=== PATIENT | female | born 1945 | race African-American/Black ===

== ENCOUNTER 2022-11-15 00:20 | Inpatient (IN) | payer OTHER ==
[2022-11-15 01:30] LABS: HEMATOCRIT 25.7 % (32.4-45.2); HEMOGLOBIN 8.2 GM/dL (10.7-15.3); MCH 29.7 pg (25.7-33.7); MEAN CELL VOLUME 92.7 fl (80-96); MEAN PLT VOLUME 7.7 fl (7.5-11.1); PLATELET COUNT 440 10^3/uL (134-434); RBC 2.77 M/mm3 (3.60-5.2); RDW 14.6 % (11.6-15.6); WHITE BLOOD COUNT 20.2 K/mm3 (4.0-10.0)
[2022-11-15 01:32] LABS: VENOUS BASE EXCESS 0.1 mmol/L (-2-2); VENOUS O2 SATURATION 33.6 % (70-80); VENOUS PCO2 57.4 mmHg (38-52); VENOUS PH 7.3 (7.310-7.410)
[2022-11-15] MEDS ORDERED: PIPERACILLIN/TAZOB 4.5 GM 4.5 GM in DEXTROSE 5%-WATER 100 ML IVPB ONE (01:43)
[2022-11-15] MEDS ORDERED: VANCOMYCIN 1 GM in D5W (PRE-DOCKED) 1,000 MG/250 ML (RESTRICTED TO ID ONLY IVPB ONE (01:43)
[2022-11-15 01:52] LABS: CALCIUM 10.1 mg/dL (8.5-10.1)
[2022-11-15 01:53] LABS: ALBUMIN 2.1 g/dl (3.4-5.0); BLOOD UREA NITROGEN 26.5 mg/dL (7-18); MAGNESIUM 2.1 mg/dL (1.8-2.4)
[2022-11-15 01:55] LABS: INR 1.13 (0.83-1.09); PROTHROMBIN TIME (PATIENT) 13.1 SEC (9.7-13.0)
[2022-11-15 01:56] LABS: CREATININE 1.5 mg/dL (0.55-1.3); PHOSPHOROUS 1.8 mg/dL (2.5-4.9)
[2022-11-15 01:57] LABS: ACTIVATED PTT 32.3 SECONDS (25.2-36.5); TOT PROT 8.2 g/dl (6.4-8.2)
[2022-11-15 01:58] LABS: BILIRUBIN,TOTAL 0.3 mg/dL (0.2-1)
[2022-11-15] MEDS ORDERED: POTASSIUM CHLORIDE ORAL LIQUID 20 MEQ/15 ML GT ONE (02:00)
[2022-11-15] MEDS ORDERED: PIPERACILLIN/TAZOB 4.5 GM 4.5 GM/100 ML BAG IVPB ONE (02:04)
[2022-11-15] MEDS ORDERED: POTASSIUM CHLORIDE ORAL LIQUID 20 MEQ/15 ML ONE (02:30)
[2022-11-15 03:52] LABS: POTASSIUM 5.4 mmol/L (3.5-5.1)
[2022-11-15 03:54] LABS: ALBUMIN 2.1 g/dl (3.4-5.0); BLOOD UREA NITROGEN 29.9 mg/dL (7-18); CALCIUM 9.5 mg/dL (8.5-10.1)
[2022-11-15 03:57] LABS: CREATININE 1.6 mg/dL (0.55-1.3)
[2022-11-15 03:59] LABS: BILIRUBIN,TOTAL 0.4 mg/dL (0.2-1)
[2022-11-15] MEDS ORDERED: NAPH,MB-DB/K PH,MBDB POWDER PACKET GT ONE (04:03)
[2022-11-15] MEDS ORDERED: NAPH,MB-DB/K PH,MBDB POWDER PACKET ONE (05:12)
[2022-11-15] MEDS ORDERED: HEPARIN INFUSION - 25,000 UNITS/500 ML INFUS.BAG IVPB ONE (05:12)
[2022-11-15] MEDS: HEPARIN - 25,000 UNIT in SODIUM CHLORIDE 495 ML IV SCH (05:29)
[2022-11-15] MEDS ORDERED: HEPARIN NA (PORCINE) 5,000 UNITS/ML 1ML VIAL SQ SCH (06:00)
[2022-11-15 08:33] LABS: HEMATOCRIT 23.3 % (32.4-45.2); HEMOGLOBIN 7.5 GM/dL (10.7-15.3); MCH 30.2 pg (25.7-33.7); MCHC 32.2 g/dl (32.0-36.0); MEAN CELL VOLUME 93.8 fl (80-96); PLATELET COUNT 422 10^3/uL (134-434); RBC 2.49 M/mm3 (3.60-5.2); RDW 14.3 % (11.6-15.6); WHITE BLOOD COUNT 16.8 K/mm3 (4.0-10.0)
[2022-11-15 08:53] LABS: POTASSIUM 3.6 mmol/L (3.5-5.1)
[2022-11-15 08:55] LABS: ALBUMIN 2.1 g/dl (3.4-5.0); CALCIUM 10.2 mg/dL (8.5-10.1)
[2022-11-15 08:56] LABS: MAGNESIUM 2.2 mg/dL (1.8-2.4)
[2022-11-15 08:59] LABS: CREATININE 1.6 mg/dL (0.55-1.3); PHOSPHOROUS 2.1 mg/dL (2.5-4.9)
[2022-11-15 09:01] LABS: BILIRUBIN,TOTAL 0.3 mg/dL (0.2-1); TOT PROT 7.8 g/dl (6.4-8.2)
[2022-11-15] MEDS ORDERED: ENOXAPARIN NA (PORCINE) 30 MG/0.3 ML DISP.SYRIN SQ SCH (10:00)
[2022-11-15] MEDS ORDERED: PIPERACILLIN/TAZOB 2.25 GM 2.25 GM in DEXTROSE 5%-WATER - 50 ML IVPB SCH (10:00)
[2022-11-15] MEDS: levETIRAcetam 500 MG/5 ML ORAL SOLUTION (UNIT-DOSE CUPS) PO SCH ×2 (10:35→21:42)
[2022-11-15] MEDS: PATIENT'S OWN MEDICATION (NON-FORMULARY) (Vit A/Vitamin D3/E/Aloe V/Zinc [Periguard Ointme TP SCH (10:35)
[2022-11-15] MEDS: FAMOTIDINE 20 MG/2.5 ML ORAL LIQUID GT SCH ×2 (10:35→22:48)
[2022-11-15] MEDS: NYSTATIN POWDER 100,000 UNITS/GM - 15 GM TOPICAL POWDER TP SCH ×2 (10:35→21:43)
[2022-11-15] MEDS: VITAMIN B COMP W-C 1 EA TABLET (NEPHRO-VITE) GT SCH (10:35)
[2022-11-15] MEDS ORDERED: PIPERACILLIN/TAZOB 2.25 GM 2.25 GM/50 ML BAG IVPB ONE (10:36)
[2022-11-15 12:05] LABS: ANISOCYTOSIS 2+; MACROCYTOSIS 0; OVALOCYTE 2+; TARGET CELLS 1+; TEAR DROP CELLS 2+
[2022-11-15] MEDS ORDERED: ATORVASTATIN CA 40 MG TABLET (FP) PO ONE (13:41)
[2022-11-15] MEDS ORDERED: ATORVASTATIN CA 40 MG TABLET (FP) GT ONE (13:41)
[2022-11-15] MEDS: ALBUTEROL SO4 2.5/IPRATROPIUM 0.5 INH SOL 3 ML VIAL.NEB. NEB SCH ×2 (15:22→21:50)
[2022-11-15 16:23] LABS: ARTERIAL BLD GAS O2 SATURATION 98.8 % (95-98); ARTERIAL BLOOD GAS BASE EXCESS 4.1 mmol/L (-2-2); ARTERIAL BLOOD GAS PO2 125.7 mmHg (80-100)
[2022-11-15 16:26] LABS: ALLENS TEST POSITIVE
[2022-11-15 16:27] LABS: VENT MODE A/C; VENT RATE 16
[2022-11-15] MEDS ORDERED: SODIUM PHOSPHATE - 20 MM in SODIUM CHLORIDE 250 ML IVPB ONE (17:27)
[2022-11-15] MEDS: PIPERACILLIN/TAZOB 2.25 GM 2.25 GM in DEXTROSE 5%-WATER - 50 ML IVPB SCH (17:35)
[2022-11-15] MEDS: ATORVASTATIN CA 80 MG TABLET (FP) GT SCH (17:56)
[2022-11-15] MEDS: QUEtiapine FUMARATE 25 MG TABLET GT SCH (21:40)
[2022-11-15] MEDS ORDERED: ATORVASTATIN CA 40 MG TABLET (FP) GT SCH ×2 (22:00)
[2022-11-16] MEDS: PIPERACILLIN/TAZOB 2.25 GM 2.25 GM in DEXTROSE 5%-WATER - 50 ML IVPB SCH ×3 (01:56→17:39)
[2022-11-16] MEDS ORDERED: VANCOMYCIN 1 GM/200 ML PREMIX BAG (RESTRICTED TO ID ONLY) IVPB SCH (03:00)
[2022-11-16 07:29] LABS: BASO % 0.5 % (0-2.0); EOS % 1.3 % (0-4.5); HEMATOCRIT 21.6 % (32.4-45.2); HEMOGLOBIN 7.3 GM/dL (10.7-15.3); LYMPH % 6.5 % (8-40); MCH 31.4 pg (25.7-33.7); MCHC 33.6 g/dl (32.0-36.0); MEAN CELL VOLUME 93.4 fl (80-96); MEAN PLT VOLUME 7.6 fl (7.5-11.1); MONO % 8.7 % (3.8-10.2); PLATELET COUNT 373 10^3/uL (134-434); RBC 2.32 M/mm3 (3.60-5.2); RDW 14.1 % (11.6-15.6); WHITE BLOOD COUNT 17.1 K/mm3 (4.0-10.0)
[2022-11-16 07:50] LABS: CHLORIDE 99 mmol/L (98-107); SODIUM 139 mmol/L (136-145)
[2022-11-16 07:52] LABS: CALCIUM 9.9 mg/dL (8.5-10.1)
[2022-11-16 07:53] LABS: ALBUMIN 2.1 g/dl (3.4-5.0); BLOOD UREA NITROGEN 49.8 mg/dL (7-18); CO2 27 mmol/L (21-32); GLUCOSE,RANDOM 113 mg/dL (74-106); MAGNESIUM 2.1 mg/dL (1.8-2.4)
[2022-11-16 07:56] LABS: CREATININE 2.6 mg/dL (0.55-1.3); PHOSPHOROUS 2.7 mg/dL (2.5-4.9); SGOT/AST 38 U/L (15-37); SGPT/ALT 30 U/L (13-61)
[2022-11-16 07:58] LABS: ALK PHOS 144 U/L (45-117); BILIRUBIN,TOTAL 0.3 mg/dL (0.2-1); TOT PROT 7.4 g/dl (6.4-8.2)
[2022-11-16 08:19] LABS: ANION GAP 13 MMOL/L (8-16); POTASSIUM 2.9 mmol/L (3.5-5.1)
[2022-11-16] MEDS: HEPARIN - 25,000 UNIT in SODIUM CHLORIDE 495 ML IV SCH (08:20)
[2022-11-16] MEDS: ALBUTEROL SO4 2.5/IPRATROPIUM 0.5 INH SOL 3 ML VIAL.NEB. NEB SCH ×4 (08:39→20:23)
[2022-11-16] MEDS ORDERED: EPOETIN ALFA-EPBX 10,000 UNIT/ML VIAL SQ ONE (09:06)
[2022-11-16] MEDS ORDERED: SODIUM CHLORIDE 250 ML IV PRN (09:06)
[2022-11-16] MEDS ORDERED: ALBUMIN HUMAN 25% 12.5 GM/50 ML VIAL IV SCH (09:15)
[2022-11-16] MEDS: VITAMIN B COMP W-C 1 EA TABLET (NEPHRO-VITE) GT SCH (09:18)
[2022-11-16] MEDS: levETIRAcetam 500 MG/5 ML ORAL SOLUTION (UNIT-DOSE CUPS) PO SCH ×2 (09:18→21:56)
[2022-11-16] MEDS: KCL 10 MEQ IVPB 10 MEQ/100 ML INFUS.BAG IVPB SCH ×3 (09:18→11:46)
[2022-11-16] MEDS: NYSTATIN POWDER 100,000 UNITS/GM - 15 GM TOPICAL POWDER TP SCH ×2 (09:19→21:57)
[2022-11-16] MEDS ORDERED: ATORVASTATIN CA 40 MG TABLET (FP) GT SCH (10:00)
[2022-11-16] MEDS ORDERED: POTASSIUM CHLORIDE ORAL LIQUID 20 MEQ/15 ML GT ONE (10:00)
[2022-11-16] MEDS: FAMOTIDINE 20 MG/2.5 ML ORAL LIQUID GT SCH ×2 (10:00→21:56)
[2022-11-16] MEDS ORDERED: VANCOMYCIN 1 GM/200 ML PREMIX BAG (RESTRICTED TO ID ONLY) IVPB ONE (10:02)
[2022-11-16 10:45] LABS: RETICULOCYTES 1.49 % (0.5-1.5)
[2022-11-16 11:16] LABS: IRON SERUM 64 ug/dL (50-175); TOTAL IRON BINDING CAPACITY 107 ug/dL (250-450)
[2022-11-16] MEDS: ASPIRIN 81 MG CHEWABLE TABLETS PO SCH (11:45)
[2022-11-16] MEDS ORDERED: VITAMINS A AND D TOPICAL OINTMENT 60 GM TUBE TP PRN (12:15)
[2022-11-16] MEDS ORDERED: ZINC OXIDE 20% TOPICAL OINTMENT 30 GM TUBE TP PRN (12:16)
[2022-11-16] MEDS: PATIENT'S OWN MEDICATION (NON-FORMULARY) (Vit A/Vitamin D3/E/Aloe V/Zinc [Periguard Ointme TP SCH (20:23)
[2022-11-16] MEDS: QUEtiapine FUMARATE 25 MG TABLET GT SCH (21:56)
[2022-11-16] MEDS: ATORVASTATIN CA 80 MG TABLET (FP) GT SCH (21:56)
[2022-11-16] MEDS: guaiFENesin 200 MG/10 ML 10 ML UNIT-DOSE CUPS GT PRN (21:56)
[2022-11-16] MEDS ORDERED: HEPARIN NA (PORCINE) 5,000 UNITS/ML 1ML VIAL SQ SCH (22:00)
[2022-11-17 00:10] LABS: POTASSIUM 3.4 mmol/L (3.5-5.1)
[2022-11-17 00:11] LABS: BLOOD UREA NITROGEN 59.7 mg/dL (7-18); CALCIUM 9.8 mg/dL (8.5-10.1)
[2022-11-17 00:14] LABS: CREATININE 3.1 mg/dL (0.55-1.3)
[2022-11-17] MEDS: PIPERACILLIN/TAZOB 2.25 GM 2.25 GM in DEXTROSE 5%-WATER - 50 ML IVPB SCH ×3 (01:33→17:18)
[2022-11-17] MEDS ORDERED: VANCOMYCIN 1 GM/200 ML PREMIX BAG (RESTRICTED TO ID ONLY) IVPB SCH (03:00)
[2022-11-17] MEDS: HEPARIN - 25,000 UNIT in SODIUM CHLORIDE 495 ML IV SCH (07:15)
[2022-11-17] MEDS: ALBUTEROL SO4 2.5/IPRATROPIUM 0.5 INH SOL 3 ML VIAL.NEB. NEB SCH ×4 (08:00→20:40)
[2022-11-17] MEDS: ALBUMIN HUMAN 25% 12.5 GM/50 ML VIAL IV SCH ×4 (08:15→11:00)
[2022-11-17] MEDS ORDERED: EPOETIN ALFA-EPBX 10,000 UNIT/ML VIAL SQ ONE (08:15)
[2022-11-17 08:53] LABS: HEMATOCRIT 20.1 % (32.4-45.2); MCH 30.2 pg (25.7-33.7); MCHC 33.2 g/dl (32.0-36.0); MEAN CELL VOLUME 91.1 fl (80-96); MEAN PLT VOLUME 7.6 fl (7.5-11.1); PLATELET COUNT 356 10^3/uL (134-434); RBC 2.21 M/mm3 (3.60-5.2); RDW 14.2 % (11.6-15.6)
[2022-11-17 09:01] LABS: POTASSIUM 3.4 mmol/L (3.5-5.1)
[2022-11-17 09:03] LABS: BLOOD UREA NITROGEN 65.3 mg/dL (7-18); CALCIUM 9.6 mg/dL (8.5-10.1); MAGNESIUM 2.2 mg/dL (1.8-2.4)
[2022-11-17 09:04] LABS: HEMOGLOBIN 6.7 GM/dL (10.7-15.3)
[2022-11-17 09:07] LABS: CREATININE 3.3 mg/dL (0.55-1.3)
[2022-11-17] MEDS ORDERED: POTASSIUM CHLORIDE ORAL LIQUID 20 MEQ/15 ML GT ONE (09:45)
[2022-11-17] MEDS: ASPIRIN 81 MG CHEWABLE TABLETS PO SCH (10:50)
[2022-11-17] MEDS: VITAMIN B COMP W-C 1 EA TABLET (NEPHRO-VITE) GT SCH (10:50)
[2022-11-17] MEDS: levETIRAcetam 500 MG/5 ML ORAL SOLUTION (UNIT-DOSE CUPS) PO SCH ×2 (10:50→21:20)
[2022-11-17] MEDS: NYSTATIN POWDER 100,000 UNITS/GM - 15 GM TOPICAL POWDER TP SCH ×2 (10:51→21:20)
[2022-11-17] MEDS: FAMOTIDINE 20 MG/2.5 ML ORAL LIQUID GT SCH ×2 (10:55→21:20)
[2022-11-17] MEDS ORDERED: VANCOMYCIN 1 GM/200 ML PREMIX BAG (RESTRICTED TO ID ONLY) IVPB ONE (13:00)
[2022-11-17] MEDS: QUEtiapine FUMARATE 25 MG TABLET GT SCH (21:20)
[2022-11-17] MEDS: ATORVASTATIN CA 80 MG TABLET (FP) GT SCH (21:20)
[2022-11-17] MEDS: guaiFENesin 200 MG/10 ML 10 ML UNIT-DOSE CUPS GT PRN (21:20)
[2022-11-18] MEDS: PIPERACILLIN/TAZOB 2.25 GM 2.25 GM in DEXTROSE 5%-WATER - 50 ML IVPB SCH ×3 (01:30→18:16)
[2022-11-18] MEDS: VANCOMYCIN 250 MG/5 ML ORAL SOLUTION PO SCH ×4 (06:55→23:29)
[2022-11-18] MEDS: ALBUTEROL SO4 2.5/IPRATROPIUM 0.5 INH SOL 3 ML VIAL.NEB. NEB SCH ×4 (08:11→20:31)
[2022-11-18] MEDS: ASPIRIN 81 MG CHEWABLE TABLETS PO SCH (09:03)
[2022-11-18] MEDS: levETIRAcetam 500 MG/5 ML ORAL SOLUTION (UNIT-DOSE CUPS) PO SCH ×2 (09:03→21:53)
[2022-11-18] MEDS: FAMOTIDINE 20 MG/2.5 ML ORAL LIQUID GT SCH ×2 (09:03→22:41)
[2022-11-18] MEDS: VITAMIN B COMP W-C 1 EA TABLET (NEPHRO-VITE) GT SCH (09:03)
[2022-11-18] MEDS: NYSTATIN POWDER 100,000 UNITS/GM - 15 GM TOPICAL POWDER TP SCH ×2 (09:04→21:53)
[2022-11-18 10:18] LABS: HEMATOCRIT 24.7 % (32.4-45.2); HEMOGLOBIN 8.3 GM/dL (10.7-15.3); MCH 30.1 pg (25.7-33.7); MCHC 33.5 g/dl (32.0-36.0); MEAN CELL VOLUME 90.1 fl (80-96); MEAN PLT VOLUME 7.6 fl (7.5-11.1); PLATELET COUNT 355 10^3/uL (134-434); RBC 2.75 M/mm3 (3.60-5.2); WHITE BLOOD COUNT 12.5 K/mm3 (4.0-10.0)
[2022-11-18 10:29] LABS: CALCIUM 10.1 mg/dL (8.5-10.1); MAGNESIUM 2.1 mg/dL (1.8-2.4)
[2022-11-18 10:34] LABS: CREATININE 2.2 mg/dL (0.55-1.3); PHOSPHOROUS 2.3 mg/dL (2.5-4.9)
[2022-11-18 10:36] LABS: BLOOD UREA NITROGEN 36.9 mg/dL (7-18)
[2022-11-18] MEDS ORDERED: ZINC OXIDE 20% TOPICAL OINTMENT 30 GM TUBE TP PRN (16:16)
[2022-11-18] MEDS ORDERED: VITAMINS A AND D TOPICAL OINTMENT 60 GM TUBE TP PRN (16:16)
[2022-11-18] MEDS ORDERED: guaiFENesin 200 MG/10 ML 10 ML UNIT-DOSE CUPS GT PRN (16:16)
[2022-11-18] MEDS: QUEtiapine FUMARATE 25 MG TABLET GT SCH (21:53)
[2022-11-18] MEDS: ATORVASTATIN CA 80 MG TABLET (FP) GT SCH (21:53)
[2022-11-19] MEDS: PIPERACILLIN/TAZOB 2.25 GM 2.25 GM in DEXTROSE 5%-WATER - 50 ML IVPB SCH ×4 (02:01→20:43)
[2022-11-19] MEDS: VANCOMYCIN 250 MG/5 ML ORAL SOLUTION PO SCH ×3 (06:46→17:38)
[2022-11-19] MEDS: ALBUTEROL SO4 2.5/IPRATROPIUM 0.5 INH SOL 3 ML VIAL.NEB. NEB SCH ×4 (07:50→19:33)
[2022-11-19 08:55] LABS: BASO % 0.3 % (0-2.0); HEMATOCRIT 25.9 % (32.4-45.2); HEMOGLOBIN 8.3 GM/dL (10.7-15.3); LYMPH % 10.4 % (8-40); MCH 29.5 pg (25.7-33.7); MCHC 32.2 g/dl (32.0-36.0); MEAN CELL VOLUME 91.8 fl (80-96); MONO % 11.6 % (3.8-10.2); NEUT % 75.7 % (42.8-82.8); PLATELET COUNT 345 10^3/uL (134-434); RBC 2.82 M/mm3 (3.60-5.2); RDW 14.5 % (11.6-15.6); WHITE BLOOD COUNT 12.7 K/mm3 (4.0-10.0)
[2022-11-19 09:21] LABS: POTASSIUM 5.3 mmol/L (3.5-5.1)
[2022-11-19 09:23] LABS: CALCIUM 10.4 mg/dL (8.5-10.1)
[2022-11-19 09:24] LABS: ALBUMIN 2.2 g/dl (3.4-5.0); BLOOD UREA NITROGEN 52.6 mg/dL (7-18); MAGNESIUM 2.2 mg/dL (1.8-2.4)
[2022-11-19 09:27] LABS: PHOSPHOROUS 2.9 mg/dL (2.5-4.9)
[2022-11-19 09:28] LABS: BILIRUBIN,TOTAL 0.5 mg/dL (0.2-1); TOT PROT 7.5 g/dl (6.4-8.2)
[2022-11-19] MEDS: levETIRAcetam 500 MG/5 ML ORAL SOLUTION (UNIT-DOSE CUPS) PO SCH ×2 (10:09→22:44)
[2022-11-19] MEDS: FAMOTIDINE 20 MG/2.5 ML ORAL LIQUID GT SCH ×2 (10:10→22:45)
[2022-11-19] MEDS: VITAMIN B COMP W-C 1 EA TABLET (NEPHRO-VITE) GT SCH (10:10)
[2022-11-19] MEDS: ASPIRIN 81 MG CHEWABLE TABLETS PO SCH (10:10)
[2022-11-19] MEDS: NYSTATIN POWDER 100,000 UNITS/GM - 15 GM TOPICAL POWDER TP SCH ×2 (10:12→23:30)
[2022-11-19] MEDS: QUEtiapine FUMARATE 25 MG TABLET GT SCH (22:43)
[2022-11-19] MEDS: ATORVASTATIN CA 80 MG TABLET (FP) GT SCH (22:43)
[2022-11-20] MEDS: VANCOMYCIN 250 MG/5 ML ORAL SOLUTION PO SCH ×5 (00:37→23:47)
[2022-11-20] MEDS: PIPERACILLIN/TAZOB 2.25 GM 2.25 GM in DEXTROSE 5%-WATER - 50 ML IVPB SCH ×3 (02:45→17:28)
[2022-11-20] MEDS: ALBUTEROL SO4 2.5/IPRATROPIUM 0.5 INH SOL 3 ML VIAL.NEB. NEB SCH ×4 (07:45→20:15)
[2022-11-20] MEDS ORDERED: EPOETIN ALFA-EPBX 10,000 UNIT/ML VIAL IVPUSH ONE (08:00)
[2022-11-20] MEDS ORDERED: SODIUM CHLORIDE 250 ML IV PRN (08:00)
[2022-11-20 08:54] LABS: HEMATOCRIT 23.2 % (32.4-45.2); HEMOGLOBIN 7.8 GM/dL (10.7-15.3); MCH 30.2 pg (25.7-33.7); MCHC 33.6 g/dl (32.0-36.0); MEAN CELL VOLUME 89.7 fl (80-96); MEAN PLT VOLUME 7.3 fl (7.5-11.1); PLATELET COUNT 344 10^3/uL (134-434); RBC 2.58 M/mm3 (3.60-5.2); RDW 14.6 % (11.6-15.6); WHITE BLOOD COUNT 13.4 K/mm3 (4.0-10.0)
[2022-11-20 09:23] LABS: CALCIUM 9.8 mg/dL (8.5-10.1); POTASSIUM 4.3 mmol/L (3.5-5.1)
[2022-11-20 09:24] LABS: BLOOD UREA NITROGEN 69.1 mg/dL (7-18)
[2022-11-20 09:27] LABS: CREATININE 3.8 mg/dL (0.55-1.3)
[2022-11-20] MEDS: ASPIRIN 81 MG CHEWABLE TABLETS PO SCH (12:53)
[2022-11-20] MEDS: levETIRAcetam 500 MG/5 ML ORAL SOLUTION (UNIT-DOSE CUPS) PO SCH ×2 (12:53→21:41)
[2022-11-20] MEDS: VITAMIN B COMP W-C 1 EA TABLET (NEPHRO-VITE) GT SCH (12:53)
[2022-11-20] MEDS: FAMOTIDINE 20 MG/2.5 ML ORAL LIQUID GT SCH ×2 (12:54→21:41)
[2022-11-20] MEDS: NYSTATIN POWDER 100,000 UNITS/GM - 15 GM TOPICAL POWDER TP SCH ×2 (14:16→21:42)
[2022-11-20] MEDS: ATORVASTATIN CA 80 MG TABLET (FP) GT SCH (21:41)
[2022-11-20] MEDS: QUEtiapine FUMARATE 25 MG TABLET GT SCH (21:41)
[2022-11-21] MEDS: PIPERACILLIN/TAZOB 2.25 GM 2.25 GM in DEXTROSE 5%-WATER - 50 ML IVPB SCH ×3 (02:23→18:38)
[2022-11-21] MEDS: VANCOMYCIN 250 MG/5 ML ORAL SOLUTION PO SCH ×3 (05:55→18:38)
[2022-11-21] MEDS: ALBUTEROL SO4 2.5/IPRATROPIUM 0.5 INH SOL 3 ML VIAL.NEB. NEB SCH ×4 (07:20→19:22)
[2022-11-21] MEDS ORDERED: LORazepam 2 MG/ML SDV VIAL IVPUSH PRN (09:53)
[2022-11-21] MEDS: ASPIRIN 81 MG CHEWABLE TABLETS PO SCH (10:50)
[2022-11-21] MEDS: FAMOTIDINE 20 MG/2.5 ML ORAL LIQUID GT SCH ×2 (10:50→22:23)
[2022-11-21] MEDS: VITAMIN B COMP W-C 1 EA TABLET (NEPHRO-VITE) GT SCH (10:51)
[2022-11-21] MEDS: levETIRAcetam 500 MG/5 ML ORAL SOLUTION (UNIT-DOSE CUPS) PO SCH ×2 (10:51→22:26)
[2022-11-21] MEDS: NYSTATIN POWDER 100,000 UNITS/GM - 15 GM TOPICAL POWDER TP SCH ×2 (11:43→22:23)
[2022-11-21] MEDS ORDERED: SODIUM CHLORIDE 250 ML IV PRN (14:56)
[2022-11-21 14:57] VITALS: BMI 28.5
[2022-11-21] MEDS ORDERED: EPOETIN ALFA-EPBX 10,000 UNIT/ML VIAL SQ ONE (16:45)
[2022-11-21] MEDS: ATORVASTATIN CA 80 MG TABLET (FP) GT SCH (22:23)
[2022-11-21] MEDS: QUEtiapine FUMARATE 25 MG TABLET GT SCH (22:23)
[2022-11-22] MEDS: VANCOMYCIN 250 MG/5 ML ORAL SOLUTION PO SCH ×4 (00:15→18:27)
[2022-11-22] MEDS: PIPERACILLIN/TAZOB 2.25 GM 2.25 GM in DEXTROSE 5%-WATER - 50 ML IVPB SCH ×2 (01:22→18:25)
[2022-11-22] MEDS: ALBUTEROL SO4 2.5/IPRATROPIUM 0.5 INH SOL 3 ML VIAL.NEB. NEB SCH ×4 (07:27→20:33)
[2022-11-22 10:13] LABS: BASO % 0.4 % (0-2.0); EOS % 3.5 % (0-4.5); HEMOGLOBIN 9.1 GM/dL (10.7-15.3); LYMPH % 12.8 % (8-40); MCH 31.2 pg (25.7-33.7); MCHC 33.6 g/dl (32.0-36.0); MEAN CELL VOLUME 92.8 fl (80-96); MEAN PLT VOLUME 7.8 fl (7.5-11.1); MONO % 13.2 % (3.8-10.2); NEUT % 70.1 % (42.8-82.8); PLATELET COUNT 406 10^3/uL (134-434); RBC 2.91 M/mm3 (3.60-5.2); RDW 14.4 % (11.6-15.6); WHITE BLOOD COUNT 10.3 K/mm3 (4.0-10.0)
[2022-11-22 10:39] LABS: POTASSIUM 3.8 mmol/L (3.5-5.1)
[2022-11-22 10:46] LABS: CALCIUM 9.9 mg/dL (8.5-10.1)
[2022-11-22 10:47] LABS: ALBUMIN 2.2 g/dl (3.4-5.0); BLOOD UREA NITROGEN 50.4 mg/dL (7-18)
[2022-11-22 10:50] LABS: CREATININE 3.1 mg/dL (0.55-1.3)
[2022-11-22 10:51] LABS: TOT PROT 7.3 g/dl (6.4-8.2)
[2022-11-22 10:52] LABS: BILIRUBIN,TOTAL 0.4 mg/dL (0.2-1)
[2022-11-22] MEDS: levETIRAcetam 500 MG/5 ML ORAL SOLUTION (UNIT-DOSE CUPS) PO SCH ×2 (11:01→21:51)
[2022-11-22] MEDS: LACTOBACILLUS ACIDOPHILUS 1 TABLET PO SCH (11:01)
[2022-11-22] MEDS: VITAMIN B COMP W-C 1 EA TABLET (NEPHRO-VITE) GT SCH (11:01)
[2022-11-22] MEDS: FAMOTIDINE 20 MG/2.5 ML ORAL LIQUID GT SCH ×2 (11:02→21:51)
[2022-11-22] MEDS: NYSTATIN POWDER 100,000 UNITS/GM - 15 GM TOPICAL POWDER TP SCH ×2 (11:08→21:52)
[2022-11-22] MEDS: QUEtiapine FUMARATE 25 MG TABLET GT SCH ×2 (13:40→21:51)
[2022-11-22] MEDS: LORazepam 1 MG TABLET GT PRN (13:45)
[2022-11-22] MEDS: ASPIRIN 81 MG CHEWABLE TABLETS PO SCH (18:27)
[2022-11-22] MEDS: ATORVASTATIN CA 80 MG TABLET (FP) GT SCH (21:51)
[2022-11-23] MEDS: VANCOMYCIN 250 MG/5 ML ORAL SOLUTION PO SCH (01:19)
[2022-11-23] MEDS: VANCOMYCIN ORAL SOLUTION 125 MG/2.5 ML PO SCH ×4 (05:31→23:23)
[2022-11-23] MEDS: ALBUTEROL SO4 2.5/IPRATROPIUM 0.5 INH SOL 3 ML VIAL.NEB. NEB SCH ×4 (07:10→19:58)
[2022-11-23] MEDS: LORazepam 1 MG TABLET GT PRN ×3 (07:33→23:23)
[2022-11-23] MEDS: LACTOBACILLUS ACIDOPHILUS 1 TABLET PO SCH (09:58)
[2022-11-23] MEDS: VITAMIN B COMP W-C 1 EA TABLET (NEPHRO-VITE) GT SCH (09:58)
[2022-11-23] MEDS: ASPIRIN 81 MG CHEWABLE TABLETS PO SCH (09:58)
[2022-11-23] MEDS: levETIRAcetam 500 MG/5 ML ORAL SOLUTION (UNIT-DOSE CUPS) PO SCH ×2 (09:59→21:32)
[2022-11-23] MEDS: NYSTATIN POWDER 100,000 UNITS/GM - 15 GM TOPICAL POWDER TP SCH ×2 (13:01→21:32)
[2022-11-23] MEDS: FAMOTIDINE 20 MG/2.5 ML ORAL LIQUID GT SCH ×2 (13:01→21:32)
[2022-11-23 15:44] LABS: BASO % 0.7 % (0-2.0); EOS % 2.8 % (0-4.5); HEMATOCRIT 26.5 % (32.4-45.2); HEMOGLOBIN 8.9 GM/dL (10.7-15.3); LYMPH % 11.9 % (8-40); MCHC 33.6 g/dl (32.0-36.0); MEAN CELL VOLUME 92.3 fl (80-96); MEAN PLT VOLUME 7.2 fl (7.5-11.1); MONO % 12.8 % (3.8-10.2); NEUT % 71.8 % (42.8-82.8); PLATELET COUNT 430 10^3/uL (134-434); RBC 2.87 M/mm3 (3.60-5.2); RDW 14.7 % (11.6-15.6); WHITE BLOOD COUNT 10.7 K/mm3 (4.0-10.0)
[2022-11-23 15:58] LABS: POTASSIUM 4.1 mmol/L (3.5-5.1)
[2022-11-23 16:02] LABS: CALCIUM 10.1 mg/dL (8.5-10.1)
[2022-11-23 16:03] LABS: ALBUMIN 2.3 g/dl (3.4-5.0); BLOOD UREA NITROGEN 29.2 mg/dL (7-18)
[2022-11-23 16:06] LABS: CREATININE 2.3 mg/dL (0.55-1.3)
[2022-11-23 16:07] LABS: BILIRUBIN,TOTAL 0.3 mg/dL (0.2-1); TOT PROT 7.7 g/dl (6.4-8.2)
[2022-11-23] MEDS: ATORVASTATIN CA 80 MG TABLET (FP) GT SCH (21:32)
[2022-11-23] MEDS: OLANZapine 5 MG TABLET GT SCH (21:32)
[2022-11-24] MEDS ORDERED: ACETAMINOPHEN 1000 MG/100 ML BAG IVPB PRN (00:35)
[2022-11-24] MEDS: ACETAMINOPHEN 500 MG TABLET (FP) GT PRN ×2 (00:59→10:33)
[2022-11-24] MEDS: VANCOMYCIN ORAL SOLUTION 125 MG/2.5 ML PO SCH (06:00)
[2022-11-24] MEDS ORDERED: SODIUM CHLORIDE 250 ML IV PRN (08:00)
[2022-11-24] MEDS ORDERED: EPOETIN ALFA-EPBX 4,000 UNIT/ML VIAL IVPUSH ONE (08:00)
[2022-11-24] MEDS: ALBUTEROL SO4 2.5/IPRATROPIUM 0.5 INH SOL 3 ML VIAL.NEB. NEB SCH ×4 (08:05→20:41)
[2022-11-24 09:13] LABS: BASO % 0.7 % (0-2.0); EOS % 3.8 % (0-4.5); HEMATOCRIT 25.2 % (32.4-45.2); HEMOGLOBIN 8.4 GM/dL (10.7-15.3); LYMPH % 17.5 % (8-40); MCH 30.4 pg (25.7-33.7); MCHC 33.2 g/dl (32.0-36.0); MEAN CELL VOLUME 91.4 fl (80-96); MONO % 12.9 % (3.8-10.2); NEUT % 65.1 % (42.8-82.8); PLATELET COUNT 395 10^3/uL (134-434); RBC 2.76 M/mm3 (3.60-5.2); RDW 15.2 % (11.6-15.6); WHITE BLOOD COUNT 8.9 K/mm3 (4.0-10.0)
[2022-11-24 09:33] LABS: POTASSIUM 3.6 mmol/L (3.5-5.1)
[2022-11-24 09:37] LABS: CALCIUM 9.7 mg/dL (8.5-10.1)
[2022-11-24 09:38] LABS: BLOOD UREA NITROGEN 39.2 mg/dL (7-18)
[2022-11-24 09:41] LABS: CREATININE 2.9 mg/dL (0.55-1.3)
[2022-11-24] MEDS: VANCOMYCIN ORAL SOLUTION 125 MG/2.5 ML GT SCH ×2 (12:16→17:36)
[2022-11-24] MEDS: LACTOBACILLUS ACIDOPHILUS 1 TABLET PO SCH (12:17)
[2022-11-24] MEDS: FAMOTIDINE 20 MG/2.5 ML ORAL LIQUID GT SCH ×2 (12:18→21:29)
[2022-11-24] MEDS: VITAMIN B COMP W-C 1 EA TABLET (NEPHRO-VITE) GT SCH (12:18)
[2022-11-24] MEDS: NYSTATIN POWDER 100,000 UNITS/GM - 15 GM TOPICAL POWDER TP SCH ×2 (12:19→21:30)
[2022-11-24] MEDS: ASPIRIN 81 MG CHEWABLE TABLETS PO SCH (12:20)
[2022-11-24] MEDS: levETIRAcetam 500 MG/5 ML ORAL SOLUTION (UNIT-DOSE CUPS) PO SCH (15:01)
[2022-11-24] MEDS: ATORVASTATIN CA 80 MG TABLET (FP) GT SCH (21:29)
[2022-11-24] MEDS: levETIRAcetam 500 MG/5 ML ORAL SOLUTION (UNIT-DOSE CUPS) GT SCH (21:29)
[2022-11-24] MEDS: OLANZapine 5 MG TABLET GT SCH (21:29)
[2022-11-25] MEDS: VANCOMYCIN ORAL SOLUTION 125 MG/2.5 ML GT SCH ×4 (00:30→17:46)
[2022-11-25] MEDS: ALBUTEROL SO4 2.5/IPRATROPIUM 0.5 INH SOL 3 ML VIAL.NEB. NEB SCH ×4 (07:59→20:45)
[2022-11-25 09:46] LABS: BASO % 0.8 % (0-2.0); EOS % 3.2 % (0-4.5); HEMATOCRIT 28.8 % (32.4-45.2); HEMOGLOBIN 9.7 GM/dL (10.7-15.3); LYMPH % 10.9 % (8-40); MCH 30.7 pg (25.7-33.7); MCHC 33.5 g/dl (32.0-36.0); MEAN CELL VOLUME 91.6 fl (80-96); MEAN PLT VOLUME 6.8 fl (7.5-11.1); MONO % 12.6 % (3.8-10.2); NEUT % 72.5 % (42.8-82.8); PLATELET COUNT 427 10^3/uL (134-434); RBC 3.14 M/mm3 (3.60-5.2); RDW 14.6 % (11.6-15.6); WHITE BLOOD COUNT 9.4 K/mm3 (4.0-10.0)
[2022-11-25 10:00] LABS: POTASSIUM 3.6 mmol/L (3.5-5.1)
[2022-11-25 10:02] LABS: CALCIUM 10.4 mg/dL (8.5-10.1)
[2022-11-25 10:03] LABS: BLOOD UREA NITROGEN 17.3 mg/dL (7-18); MAGNESIUM 1.9 mg/dL (1.8-2.4)
[2022-11-25 10:05] LABS: PHOSPHOROUS 2.4 mg/dL (2.5-4.9)
[2022-11-25 10:06] LABS: CREATININE 1.9 mg/dL (0.55-1.3)
[2022-11-25 10:07] LABS: BILIRUBIN,TOTAL 0.5 mg/dL (0.2-1); TOT PROT 8.3 g/dl (6.4-8.2)
[2022-11-25 10:09] LABS: ALBUMIN 2.8 g/dl (3.4-5.0)
[2022-11-25] MEDS: NYSTATIN POWDER 100,000 UNITS/GM - 15 GM TOPICAL POWDER TP SCH (10:09)
[2022-11-25] MEDS: VITAMIN B COMP W-C 1 EA TABLET (NEPHRO-VITE) GT SCH (10:09)
[2022-11-25] MEDS: levETIRAcetam 500 MG/5 ML ORAL SOLUTION (UNIT-DOSE CUPS) GT SCH (10:09)
[2022-11-25] MEDS: ASPIRIN 81 MG CHEWABLE TABLETS GT SCH (10:09)
[2022-11-25] MEDS: FAMOTIDINE 20 MG/2.5 ML ORAL LIQUID GT SCH (10:09)
[2022-11-25] MEDS: LACTOBACILLUS ACIDOPHILUS 1 TABLET PO SCH (10:09)
[2022-11-25] MEDS: ACETAMINOPHEN 500 MG TABLET (FP) GT PRN ×2 (15:37→22:30)
[2022-11-25] MEDS: LORazepam 1 MG TABLET GT PRN (22:30)
[2022-11-26] MEDS: levETIRAcetam 500 MG/5 ML ORAL SOLUTION (UNIT-DOSE CUPS) GT SCH ×3 (00:13→22:02)
[2022-11-26] MEDS: ATORVASTATIN CA 80 MG TABLET (FP) GT SCH ×2 (00:15→22:02)
[2022-11-26] MEDS: OLANZapine 5 MG TABLET GT SCH ×2 (00:16→22:02)
[2022-11-26] MEDS: NYSTATIN POWDER 100,000 UNITS/GM - 15 GM TOPICAL POWDER TP SCH ×3 (00:16→22:02)
[2022-11-26] MEDS: FAMOTIDINE 20 MG/2.5 ML ORAL LIQUID GT SCH ×3 (00:16→22:03)
[2022-11-26] MEDS: VANCOMYCIN ORAL SOLUTION 125 MG/2.5 ML GT SCH ×4 (00:16→17:44)
[2022-11-26] MEDS: ALBUTEROL SO4 2.5/IPRATROPIUM 0.5 INH SOL 3 ML VIAL.NEB. NEB SCH ×4 (07:15→21:15)
[2022-11-26] MEDS: AMINO ACIDS/PROTEIN HYDROLYS 30 ML LIQUID.PKT GT SCH (09:24)
[2022-11-26] MEDS: VITAMIN B COMP W-C 1 EA TABLET (NEPHRO-VITE) GT SCH (09:25)
[2022-11-26] MEDS: LACTOBACILLUS ACIDOPHILUS 1 TABLET PO SCH (09:25)
[2022-11-26] MEDS: ASPIRIN 81 MG CHEWABLE TABLETS GT SCH (09:25)
[2022-11-26 10:47] LABS: BASO % 0.5 % (0-2.0); EOS % 4.6 % (0-4.5); HEMATOCRIT 28.7 % (32.4-45.2); HEMOGLOBIN 9.4 GM/dL (10.7-15.3); LYMPH % 14.4 % (8-40); MCH 30.8 pg (25.7-33.7); MCHC 32.6 g/dl (32.0-36.0); MEAN CELL VOLUME 94.4 fl (80-96); MEAN PLT VOLUME 7.3 fl (7.5-11.1); MONO % 12.2 % (3.8-10.2); NEUT % 68.3 % (42.8-82.8); PLATELET COUNT 409 10^3/uL (134-434); RBC 3.04 M/mm3 (3.60-5.2); RDW 15.3 % (11.6-15.6); WHITE BLOOD COUNT 8.5 K/mm3 (4.0-10.0)
[2022-11-26 11:37] LABS: POTASSIUM 3.7 mmol/L (3.5-5.1)
[2022-11-26 11:39] LABS: CALCIUM 9.9 mg/dL (8.5-10.1)
[2022-11-26 11:40] LABS: ALBUMIN 2.5 g/dl (3.4-5.0); BLOOD UREA NITROGEN 35.2 mg/dL (7-18)
[2022-11-26 11:43] LABS: CREATININE 2.9 mg/dL (0.55-1.3); PHOSPHOROUS 3.6 mg/dL (2.5-4.9)
[2022-11-26 11:44] LABS: BILIRUBIN,TOTAL 0.4 mg/dL (0.2-1)
[2022-11-26 11:45] LABS: TOT PROT 7.3 g/dl (6.4-8.2)
[2022-11-27] MEDS: VANCOMYCIN ORAL SOLUTION 125 MG/2.5 ML GT SCH ×4 (00:02→17:47)
[2022-11-27] MEDS: LORazepam 1 MG TABLET GT PRN (00:59)
[2022-11-27] MEDS: ALBUTEROL SO4 2.5/IPRATROPIUM 0.5 INH SOL 3 ML VIAL.NEB. NEB SCH ×4 (08:28→20:15)
[2022-11-27 09:50] LABS: BASO % 0.5 % (0-2.0); EOS % 4.3 % (0-4.5); HEMATOCRIT 26.4 % (32.4-45.2); LYMPH % 12.9 % (8-40); MCH 31.2 pg (25.7-33.7); MCHC 34.1 g/dl (32.0-36.0); MEAN CELL VOLUME 91.5 fl (80-96); MEAN PLT VOLUME 7.2 fl (7.5-11.1); MONO % 9.3 % (3.8-10.2); PLATELET COUNT 409 10^3/uL (134-434); RBC 2.88 M/mm3 (3.60-5.2); RDW 15.1 % (11.6-15.6); WHITE BLOOD COUNT 8.9 K/mm3 (4.0-10.0)
[2022-11-27 10:02] LABS: POTASSIUM 3.4 mmol/L (3.5-5.1)
[2022-11-27 10:09] LABS: CALCIUM 9.4 mg/dL (8.5-10.1)
[2022-11-27 10:10] LABS: ALBUMIN 2.6 g/dl (3.4-5.0); BLOOD UREA NITROGEN 33.9 mg/dL (7-18)
[2022-11-27 10:13] LABS: CREATININE 2.5 mg/dL (0.55-1.3); PHOSPHOROUS 2.6 mg/dL (2.5-4.9)
[2022-11-27 10:14] LABS: BILIRUBIN,TOTAL 0.6 mg/dL (0.2-1); TOT PROT 7.5 g/dl (6.4-8.2)
[2022-11-27] MEDS ORDERED: SODIUM CHLORIDE 250 ML IV PRN (11:00)
[2022-11-27] MEDS ORDERED: EPOETIN ALFA-EPBX 4,000 UNIT/ML VIAL IVPUSH ONE (12:00)
[2022-11-27] MEDS: LACTOBACILLUS ACIDOPHILUS 1 TABLET PO SCH (13:16)
[2022-11-27] MEDS: levETIRAcetam 500 MG/5 ML ORAL SOLUTION (UNIT-DOSE CUPS) GT SCH ×2 (13:16→22:14)
[2022-11-27] MEDS: VITAMIN B COMP W-C 1 EA TABLET (NEPHRO-VITE) GT SCH (13:16)
[2022-11-27] MEDS: AMINO ACIDS/PROTEIN HYDROLYS 30 ML LIQUID.PKT GT SCH (13:16)
[2022-11-27] MEDS: ASPIRIN 81 MG CHEWABLE TABLETS GT SCH (13:16)
[2022-11-27] MEDS: NYSTATIN POWDER 100,000 UNITS/GM - 15 GM TOPICAL POWDER TP SCH ×2 (13:18→22:14)
[2022-11-27] MEDS: FAMOTIDINE 20 MG/2.5 ML ORAL LIQUID GT SCH ×2 (13:23→22:14)
[2022-11-27] MEDS: OLANZapine 5 MG TABLET GT SCH (22:14)
[2022-11-27] MEDS: ATORVASTATIN CA 80 MG TABLET (FP) GT SCH (22:14)
[2022-11-28] MEDS: VANCOMYCIN ORAL SOLUTION 125 MG/2.5 ML GT SCH ×4 (01:06→17:06)
[2022-11-28] MEDS: ALBUTEROL SO4 2.5/IPRATROPIUM 0.5 INH SOL 3 ML VIAL.NEB. NEB SCH (08:00)
[2022-11-28] MEDS: levETIRAcetam 500 MG/5 ML ORAL SOLUTION (UNIT-DOSE CUPS) GT SCH ×2 (10:34→21:38)
[2022-11-28] MEDS: AMINO ACIDS/PROTEIN HYDROLYS 30 ML LIQUID.PKT GT SCH (10:34)
[2022-11-28] MEDS: LACTOBACILLUS ACIDOPHILUS 1 TABLET PO SCH (10:34)
[2022-11-28] MEDS: VITAMIN B COMP W-C 1 EA TABLET (NEPHRO-VITE) GT SCH (10:34)
[2022-11-28] MEDS: ASPIRIN 81 MG CHEWABLE TABLETS GT SCH (10:34)
[2022-11-28] MEDS: FAMOTIDINE 20 MG/2.5 ML ORAL LIQUID GT SCH ×2 (10:34→21:39)
[2022-11-28] MEDS: NYSTATIN POWDER 100,000 UNITS/GM - 15 GM TOPICAL POWDER TP SCH ×2 (10:35→21:39)
[2022-11-28 11:19] LABS: BASO % 0.6 % (0-2.0); EOS % 3.9 % (0-4.5); HEMATOCRIT 27.7 % (32.4-45.2); MCH 30.5 pg (25.7-33.7); MCHC 32.4 g/dl (32.0-36.0); MEAN CELL VOLUME 94.2 fl (80-96); MEAN PLT VOLUME 7.2 fl (7.5-11.1); MONO % 13.7 % (3.8-10.2); NEUT % 66.8 % (42.8-82.8); PLATELET COUNT 365 10^3/uL (134-434); RBC 2.94 M/mm3 (3.60-5.2); RDW 15.4 % (11.6-15.6); WHITE BLOOD COUNT 7.4 K/mm3 (4.0-10.0)
[2022-11-28 11:39] LABS: POTASSIUM 4.5 mmol/L (3.5-5.1)
[2022-11-28 11:43] LABS: BLOOD UREA NITROGEN 33.9 mg/dL (7-18); CALCIUM 9.9 mg/dL (8.5-10.1)
[2022-11-28 11:46] LABS: CREATININE 2.2 mg/dL (0.55-1.3)
[2022-11-28] MEDS ORDERED: SODIUM CHLORIDE 250 ML IV PRN (13:28)
[2022-11-28] MEDS: OLANZapine 5 MG TABLET GT SCH (21:38)
[2022-11-28] MEDS: ATORVASTATIN CA 80 MG TABLET (FP) GT SCH (21:39)
[2022-11-29] MEDS: VANCOMYCIN ORAL SOLUTION 125 MG/2.5 ML GT SCH ×4 (01:01→17:42)
[2022-11-29] MEDS: ACETAMINOPHEN 500 MG TABLET (FP) GT PRN (08:13)
[2022-11-29 08:52] LABS: BASO % 0.4 % (0-2.0); EOS % 2.9 % (0-4.5); HEMATOCRIT 25.7 % (32.4-45.2); HEMOGLOBIN 8.5 GM/dL (10.7-15.3); LYMPH % 7.3 % (8-40); MCH 30.5 pg (25.7-33.7); MEAN CELL VOLUME 92.6 fl (80-96); MEAN PLT VOLUME 7.1 fl (7.5-11.1); MONO % 7.5 % (3.8-10.2); NEUT % 81.9 % (42.8-82.8); PLATELET COUNT 344 10^3/uL (134-434); RBC 2.77 M/mm3 (3.60-5.2); RDW 14.9 % (11.6-15.6); WHITE BLOOD COUNT 12.8 K/mm3 (4.0-10.0)
[2022-11-29] MEDS ORDERED: EPOETIN ALFA-EPBX 4,000 UNIT/ML VIAL IVPUSH ONE (09:00)
[2022-11-29 09:16] LABS: POTASSIUM 3.5 mmol/L (3.5-5.1)
[2022-11-29 09:30] LABS: BLOOD UREA NITROGEN 47.8 mg/dL (7-18); CALCIUM 9.4 mg/dL (8.5-10.1)
[2022-11-29 09:34] LABS: CREATININE 2.6 mg/dL (0.55-1.3)
[2022-11-29] MEDS: LACTOBACILLUS ACIDOPHILUS 1 TABLET PO SCH (12:44)
[2022-11-29] MEDS: AMINO ACIDS/PROTEIN HYDROLYS 30 ML LIQUID.PKT GT SCH (12:44)
[2022-11-29] MEDS: levETIRAcetam 500 MG/5 ML ORAL SOLUTION (UNIT-DOSE CUPS) GT SCH ×2 (12:44→22:55)
[2022-11-29] MEDS: VITAMIN B COMP W-C 1 EA TABLET (NEPHRO-VITE) GT SCH (12:44)
[2022-11-29] MEDS: NYSTATIN POWDER 100,000 UNITS/GM - 15 GM TOPICAL POWDER TP SCH ×2 (12:45→22:55)
[2022-11-29] MEDS: FAMOTIDINE 20 MG/2.5 ML ORAL LIQUID GT SCH ×2 (12:45→22:55)
[2022-11-29] MEDS: ASPIRIN 81 MG CHEWABLE TABLETS GT SCH (13:18)
[2022-11-29] MEDS: OLANZapine 5 MG TABLET GT SCH (22:55)
[2022-11-29] MEDS: ATORVASTATIN CA 80 MG TABLET (FP) GT SCH (22:55)
[2022-11-30] MEDS: VANCOMYCIN ORAL SOLUTION 125 MG/2.5 ML GT SCH ×4 (00:05→17:46)
[2022-11-30] MEDS: ACETAMINOPHEN 500 MG TABLET (FP) GT PRN ×2 (06:06→11:49)
[2022-11-30] MEDS: AMINO ACIDS/PROTEIN HYDROLYS 30 ML LIQUID.PKT GT SCH (08:46)
[2022-11-30 08:48] LABS: BASO % 0.6 % (0-2.0); EOS % 1.2 % (0-4.5); HEMATOCRIT 25.6 % (32.4-45.2); HEMOGLOBIN 8.5 GM/dL (10.7-15.3); LYMPH % 7.9 % (8-40); MCH 30.6 pg (25.7-33.7); MEAN CELL VOLUME 92.8 fl (80-96); MEAN PLT VOLUME 7.2 fl (7.5-11.1); MONO % 9.5 % (3.8-10.2); NEUT % 80.8 % (42.8-82.8); PLATELET COUNT 297 10^3/uL (134-434); RBC 2.76 M/mm3 (3.60-5.2); RDW 14.8 % (11.6-15.6); WHITE BLOOD COUNT 11.6 K/mm3 (4.0-10.0)
[2022-11-30 09:11] LABS: POTASSIUM 3.1 mmol/L (3.5-5.1)
[2022-11-30 09:13] LABS: CALCIUM 9.3 mg/dL (8.5-10.1)
[2022-11-30 09:14] LABS: BLOOD UREA NITROGEN 29.1 mg/dL (7-18)
[2022-11-30 09:17] LABS: CREATININE 2.2 mg/dL (0.55-1.3)
[2022-11-30] MEDS: LACTOBACILLUS ACIDOPHILUS 1 TABLET PO SCH (10:06)
[2022-11-30] MEDS: VITAMIN B COMP W-C 1 EA TABLET (NEPHRO-VITE) GT SCH (10:06)
[2022-11-30] MEDS: ASPIRIN 81 MG CHEWABLE TABLETS GT SCH (10:06)
[2022-11-30] MEDS: levETIRAcetam 500 MG/5 ML ORAL SOLUTION (UNIT-DOSE CUPS) GT SCH ×2 (10:06→22:00)
[2022-11-30] MEDS: FAMOTIDINE 20 MG/2.5 ML ORAL LIQUID GT SCH ×2 (10:06→23:19)
[2022-11-30] MEDS: NYSTATIN POWDER 100,000 UNITS/GM - 15 GM TOPICAL POWDER TP SCH ×2 (10:07→22:00)
[2022-11-30] MEDS: OLANZapine 5 MG TABLET GT SCH (22:01)
[2022-11-30] MEDS: ATORVASTATIN CA 80 MG TABLET (FP) GT SCH (22:01)
[2022-11-30] MEDS ORDERED: SODIUM CHLORIDE 250 ML IV PRN (23:13)
[2022-12-01] MEDS: VANCOMYCIN ORAL SOLUTION 125 MG/2.5 ML GT SCH ×2 (07:00)
[2022-12-01] MEDS: ASPIRIN 81 MG CHEWABLE TABLETS GT SCH (09:08)
[2022-12-01] MEDS: levETIRAcetam 500 MG/5 ML ORAL SOLUTION (UNIT-DOSE CUPS) GT SCH ×2 (09:08→21:44)
[2022-12-01] MEDS: AMINO ACIDS/PROTEIN HYDROLYS 30 ML LIQUID.PKT GT SCH (09:08)
[2022-12-01] MEDS: VITAMIN B COMP W-C 1 EA TABLET (NEPHRO-VITE) GT SCH (09:08)
[2022-12-01] MEDS: FAMOTIDINE 20 MG/2.5 ML ORAL LIQUID GT SCH ×2 (09:08→21:43)
[2022-12-01] MEDS: LACTOBACILLUS ACIDOPHILUS 1 TABLET PO SCH (09:08)
[2022-12-01] MEDS: NYSTATIN POWDER 100,000 UNITS/GM - 15 GM TOPICAL POWDER TP SCH ×2 (09:10→21:45)
[2022-12-01 09:42] LABS: BASO % 0.8 % (0-2.0); EOS % 3.6 % (0-4.5); HEMATOCRIT 27.3 % (32.4-45.2); HEMOGLOBIN 9.3 GM/dL (10.7-15.3); LYMPH % 9.5 % (8-40); MCH 31.3 pg (25.7-33.7); MCHC 33.9 g/dl (32.0-36.0); MEAN CELL VOLUME 92.2 fl (80-96); MEAN PLT VOLUME 7.6 fl (7.5-11.1); MONO % 9.3 % (3.8-10.2); NEUT % 76.8 % (42.8-82.8); PLATELET COUNT 295 10^3/uL (134-434); RBC 2.96 M/mm3 (3.60-5.2); RDW 15.3 % (11.6-15.6); WHITE BLOOD COUNT 13.1 K/mm3 (4.0-10.0)
[2022-12-01 09:58] LABS: POTASSIUM 3.5 mmol/L (3.5-5.1)
[2022-12-01 10:00] LABS: CALCIUM 9.9 mg/dL (8.5-10.1)
[2022-12-01 10:04] LABS: CREATININE 3.2 mg/dL (0.55-1.3)
[2022-12-01] MEDS: EPOETIN ALFA-EPBX 4,000 UNIT/ML VIAL IVPUSH ONE ×2 (12:41→17:24)
[2022-12-01] MEDS: ATORVASTATIN CA 80 MG TABLET (FP) GT SCH (21:44)
[2022-12-01] MEDS: OLANZapine 5 MG TABLET GT SCH (21:44)
[2022-12-01] MEDS: VANCOMYCIN 250 MG/5 ML ORAL SOLUTION PO SCH (21:44)
[2022-12-02] MEDS: VANCOMYCIN 250 MG/5 ML ORAL SOLUTION PO SCH ×5 (00:53→23:59)
[2022-12-02] MEDS: AMINO ACIDS/PROTEIN HYDROLYS 30 ML LIQUID.PKT GT SCH (08:20)
[2022-12-02] MEDS: VITAMIN B COMP W-C 1 EA TABLET (NEPHRO-VITE) GT SCH (09:05)
[2022-12-02] MEDS: LACTOBACILLUS ACIDOPHILUS 1 TABLET PO SCH (09:05)
[2022-12-02] MEDS: ASPIRIN 81 MG CHEWABLE TABLETS GT SCH (09:05)
[2022-12-02] MEDS: levETIRAcetam 500 MG/5 ML ORAL SOLUTION (UNIT-DOSE CUPS) GT SCH ×2 (09:05→21:25)
[2022-12-02] MEDS: NYSTATIN POWDER 100,000 UNITS/GM - 15 GM TOPICAL POWDER TP SCH ×2 (09:07→21:25)
[2022-12-02 09:54] LABS: BASO % 0.7 % (0-2.0); HEMATOCRIT 28.5 % (32.4-45.2); HEMOGLOBIN 9.4 GM/dL (10.7-15.3); MCH 30.7 pg (25.7-33.7); MEAN CELL VOLUME 92.9 fl (80-96); MEAN PLT VOLUME 8.2 fl (7.5-11.1); MONO % 13.9 % (3.8-10.2); NEUT % 64.4 % (42.8-82.8); PLATELET COUNT 311 10^3/uL (134-434); RBC 3.06 M/mm3 (3.60-5.2); RDW 14.5 % (11.6-15.6); WHITE BLOOD COUNT 7.1 K/mm3 (4.0-10.0)
[2022-12-02 10:08] LABS: POTASSIUM 3.5 mmol/L (3.5-5.1)
[2022-12-02 10:22] LABS: CALCIUM 10.2 mg/dL (8.5-10.1)
[2022-12-02 10:26] LABS: CREATININE 1.9 mg/dL (0.55-1.3)
[2022-12-02] MEDS: FAMOTIDINE 20 MG/2.5 ML ORAL LIQUID GT SCH ×2 (10:54→21:25)
[2022-12-02] MEDS: OLANZapine 5 MG TABLET GT SCH (21:25)
[2022-12-02] MEDS: ATORVASTATIN CA 80 MG TABLET (FP) GT SCH (21:25)
[2022-12-03] MEDS: VANCOMYCIN 250 MG/5 ML ORAL SOLUTION PO SCH ×3 (05:38→18:09)
[2022-12-03] MEDS: AMINO ACIDS/PROTEIN HYDROLYS 30 ML LIQUID.PKT GT SCH (09:38)
[2022-12-03] MEDS: OLANZapine 5 MG TABLET GT SCH ×2 (09:53→22:34)
[2022-12-03] MEDS: ASPIRIN 81 MG CHEWABLE TABLETS GT SCH (09:53)
[2022-12-03] MEDS: LACTOBACILLUS ACIDOPHILUS 1 TABLET PO SCH (09:53)
[2022-12-03] MEDS: FAMOTIDINE 20 MG/2.5 ML ORAL LIQUID GT SCH ×2 (09:53→22:34)
[2022-12-03] MEDS: VITAMIN B COMP W-C 1 EA TABLET (NEPHRO-VITE) GT SCH (09:53)
[2022-12-03] MEDS: levETIRAcetam 500 MG/5 ML ORAL SOLUTION (UNIT-DOSE CUPS) GT SCH ×2 (09:54→22:34)
[2022-12-03] MEDS: NYSTATIN POWDER 100,000 UNITS/GM - 15 GM TOPICAL POWDER TP SCH (09:54)
[2022-12-03 12:21] LABS: EOS % 6.3 % (0-4.5); HEMATOCRIT 25.9 % (32.4-45.2); HEMOGLOBIN 8.6 GM/dL (10.7-15.3); LYMPH % 17.4 % (8-40); MCHC 33.2 g/dl (32.0-36.0); MEAN CELL VOLUME 93.4 fl (80-96); MEAN PLT VOLUME 8.2 fl (7.5-11.1); NEUT % 63.3 % (42.8-82.8); PLATELET COUNT 308 10^3/uL (134-434); RBC 2.77 M/mm3 (3.60-5.2); RDW 14.6 % (11.6-15.6); WHITE BLOOD COUNT 6.8 K/mm3 (4.0-10.0)
[2022-12-03 12:42] LABS: POTASSIUM 3.5 mmol/L (3.5-5.1)
[2022-12-03 12:43] LABS: CALCIUM 9.9 mg/dL (8.5-10.1)
[2022-12-03 12:47] LABS: BLOOD UREA NITROGEN 51.5 mg/dL (7-18); CREATININE 2.9 mg/dL (0.55-1.3)
[2022-12-03] MEDS: ACETAMINOPHEN 500 MG TABLET (FP) GT PRN (22:34)
[2022-12-03] MEDS: ATORVASTATIN CA 80 MG TABLET (FP) GT SCH (22:34)
[2022-12-04] MEDS: NYSTATIN POWDER 100,000 UNITS/GM - 15 GM TOPICAL POWDER TP SCH ×3 (00:04→22:26)
[2022-12-04] MEDS: VANCOMYCIN 250 MG/5 ML ORAL SOLUTION PO SCH ×4 (00:04→18:21)
[2022-12-04 10:12] LABS: ALBUMIN 2.4 g/dl (3.4-5.0); BILIRUBIN,TOTAL 0.2 mg/dL (0.2-1); BLOOD UREA NITROGEN 46.1 mg/dL (7-18); CALCIUM 9.2 mg/dL (8.5-10.1); CREATININE 2.3 mg/dL (0.55-1.3); POTASSIUM 3.1 mmol/L (3.5-5.1); TOT PROT 6.8 g/dl (6.4-8.2)
[2022-12-04] MEDS ORDERED: POTASSIUM CHLORIDE ORAL LIQUID 20 MEQ/15 ML GT ONE (10:30)
[2022-12-04] MEDS: VITAMIN B COMP W-C 1 EA TABLET (NEPHRO-VITE) GT SCH (12:21)
[2022-12-04] MEDS: AMINO ACIDS/PROTEIN HYDROLYS 30 ML LIQUID.PKT GT SCH (12:21)
[2022-12-04] MEDS: levETIRAcetam 500 MG/5 ML ORAL SOLUTION (UNIT-DOSE CUPS) GT SCH ×2 (12:21→22:26)
[2022-12-04] MEDS: FAMOTIDINE 20 MG/2.5 ML ORAL LIQUID GT SCH ×2 (12:21→22:26)
[2022-12-04] MEDS: OLANZapine 5 MG TABLET GT SCH ×2 (12:21→22:26)
[2022-12-04] MEDS: ASPIRIN 81 MG CHEWABLE TABLETS GT SCH (12:21)
[2022-12-04] MEDS: LACTOBACILLUS ACIDOPHILUS 1 TABLET PO SCH (12:21)
[2022-12-04] MEDS ORDERED: SODIUM CHLORIDE 250 ML IV PRN (15:55)
[2022-12-04] MEDS: ATORVASTATIN CA 80 MG TABLET (FP) GT SCH (22:26)
[2022-12-04] MEDS: ACETAMINOPHEN 500 MG TABLET (FP) GT PRN (22:26)
[2022-12-04] MEDS: MELATONIN 5 MG TABLETS PO PRN (23:52)
[2022-12-05] MEDS: VANCOMYCIN 250 MG/5 ML ORAL SOLUTION PO SCH ×4 (00:15→17:43)
[2022-12-05] MEDS: FAMOTIDINE 20 MG/2.5 ML ORAL LIQUID GT SCH ×2 (10:44→21:33)
[2022-12-05] MEDS: AMINO ACIDS/PROTEIN HYDROLYS 30 ML LIQUID.PKT GT SCH (10:44)
[2022-12-05] MEDS: NYSTATIN POWDER 100,000 UNITS/GM - 15 GM TOPICAL POWDER TP SCH ×2 (10:44→21:33)
[2022-12-05] MEDS: LACTOBACILLUS ACIDOPHILUS 1 TABLET PO SCH (10:44)
[2022-12-05] MEDS: VITAMIN B COMP W-C 1 EA TABLET (NEPHRO-VITE) GT SCH (10:44)
[2022-12-05] MEDS: levETIRAcetam 500 MG/5 ML ORAL SOLUTION (UNIT-DOSE CUPS) GT SCH ×2 (10:44→21:32)
[2022-12-05] MEDS: ASPIRIN 81 MG CHEWABLE TABLETS GT SCH (10:44)
[2022-12-05] MEDS: OLANZapine 5 MG TABLET GT SCH ×2 (10:44→21:33)
[2022-12-05 11:08] LABS: BASO % 0.6 % (0-2.0); EOS % 2.8 % (0-4.5); HEMATOCRIT 29.1 % (32.4-45.2); HEMOGLOBIN 9.3 GM/dL (10.7-15.3); LYMPH % 8.2 % (8-40); MCH 30.2 pg (25.7-33.7); MCHC 31.8 g/dl (32.0-36.0); MEAN CELL VOLUME 94.7 fl (80-96); MEAN PLT VOLUME 8.5 fl (7.5-11.1); MONO % 7.2 % (3.8-10.2); NEUT % 81.2 % (42.8-82.8); PLATELET COUNT 327 10^3/uL (134-434); RBC 3.07 M/mm3 (3.60-5.2); RDW 14.9 % (11.6-15.6); WHITE BLOOD COUNT 11.8 K/mm3 (4.0-10.0)
[2022-12-05 11:31] LABS: POTASSIUM 3.8 mmol/L (3.5-5.1)
[2022-12-05 11:40] LABS: BLOOD UREA NITROGEN 35.8 mg/dL (7-18); CALCIUM 10.1 mg/dL (8.5-10.1); MAGNESIUM 2.1 mg/dL (1.8-2.4)
[2022-12-05 11:43] LABS: CREATININE 2.4 mg/dL (0.55-1.3)
[2022-12-05 11:44] LABS: PHOSPHOROUS 2.5 mg/dL (2.5-4.9)
[2022-12-05] MEDS ORDERED: EPOETIN ALFA-EPBX 10,000 UNIT/ML VIAL SQ ONE (18:08)
[2022-12-05] MEDS: ATORVASTATIN CA 80 MG TABLET (FP) GT SCH (21:32)
[2022-12-05] MEDS: MELATONIN 5 MG TABLETS PO PRN (21:33)
[2022-12-06] MEDS ORDERED: EPOETIN ALFA-EPBX 4,000 UNIT/ML VIAL SQ ONE (08:00)
[2022-12-06] MEDS ORDERED: SODIUM CHLORIDE 250 ML IV PRN (08:00)
[2022-12-06 08:38] LABS: BASO % 0.5 % (0-2.0); EOS % 3.7 % (0-4.5); HEMATOCRIT 25.3 % (32.4-45.2); HEMOGLOBIN 8.4 GM/dL (10.7-15.3); LYMPH % 11.3 % (8-40); MCH 31.3 pg (25.7-33.7); MCHC 33.2 g/dl (32.0-36.0); MEAN CELL VOLUME 94.3 fl (80-96); MEAN PLT VOLUME 8.4 fl (7.5-11.1); MONO % 8.3 % (3.8-10.2); NEUT % 76.2 % (42.8-82.8); PLATELET COUNT 301 10^3/uL (134-434); RBC 2.68 M/mm3 (3.60-5.2); RDW 14.6 % (11.6-15.6); WHITE BLOOD COUNT 9.6 K/mm3 (4.0-10.0)
[2022-12-06 09:15] LABS: POTASSIUM 4.3 mmol/L (3.5-5.1)
[2022-12-06 09:17] LABS: ALBUMIN 2.5 g/dl (3.4-5.0); MAGNESIUM 2.2 mg/dL (1.8-2.4)
[2022-12-06 09:21] LABS: BLOOD UREA NITROGEN 53.6 mg/dL (7-18); CALCIUM 10.1 mg/dL (8.5-10.1)
[2022-12-06 09:22] LABS: BILIRUBIN,TOTAL 0.3 mg/dL (0.2-1)
[2022-12-06] MEDS: OLANZapine 5 MG TABLET GT SCH (10:49)
[2022-12-06] MEDS: ASPIRIN 81 MG CHEWABLE TABLETS GT SCH (10:49)
[2022-12-06] MEDS: VITAMIN B COMP W-C 1 EA TABLET (NEPHRO-VITE) GT SCH (10:49)
[2022-12-06] MEDS: FAMOTIDINE 20 MG/2.5 ML ORAL LIQUID GT SCH (10:49)
[2022-12-06] MEDS: AMINO ACIDS/PROTEIN HYDROLYS 30 ML LIQUID.PKT GT SCH (10:49)
[2022-12-06] MEDS: LACTOBACILLUS ACIDOPHILUS 1 TABLET PO SCH (10:49)
[2022-12-06] MEDS: levETIRAcetam 500 MG/5 ML ORAL SOLUTION (UNIT-DOSE CUPS) GT SCH (10:50)
[2022-12-06] MEDS: NYSTATIN POWDER 100,000 UNITS/GM - 15 GM TOPICAL POWDER TP SCH (10:53)
[2022-12-06 18:10] VITALS: BP 150/68; PULSE 59; RESP 18; TEMP 98.4
== END 2022-12-06 19:58 | DRG 870 ==
LOC: JER 00:20 → JERBED 02:01 → J2W 15:05 → J5S 11-18 15:58
PROVIDERS: ADMIT Internal Medicine; ATTEND Internal Medicine
PROC: 5A1955Z Respiratory Ventilation, Greater than 96 Consecutive Hours (ICD-10-PCS; 2022-11-15)
PROC: 0B21XFZ Change Tracheostomy Device in Trachea, External Approach (ICD-10-PCS; principal; 2022-11-16)
PROC: 5A1D70Z Performance of Urinary Filtration, Intermittent, Less than 6 Hours Per Day (ICD-10-PCS; 2022-11-17)
PROC: 30233N1 Transfusion of Nonautologous Red Blood Cells into Peripheral Vein, Percutaneous Approach (ICD-10-PCS; 2022-11-17)
PROC: 5A1D70Z Performance of Urinary Filtration, Intermittent, Less than 6 Hours Per Day (ICD-10-PCS; 2022-11-22)
PROC: 5A1D70Z Performance of Urinary Filtration, Intermittent, Less than 6 Hours Per Day (ICD-10-PCS; 2022-11-29)
PROC: 0D20XUZ Change Feeding Device in Upper Intestinal Tract, External Approach (ICD-10-PCS; 2022-11-30)
PROC: 5A1D70Z Performance of Urinary Filtration, Intermittent, Less than 6 Hours Per Day (ICD-10-PCS; 2022-12-01)
PROC: 5A1D70Z Performance of Urinary Filtration, Intermittent, Less than 6 Hours Per Day (ICD-10-PCS; 2022-12-04)
PROC: 5A1D70Z Performance of Urinary Filtration, Intermittent, Less than 6 Hours Per Day (ICD-10-PCS; 2022-12-06)
DX: A41.52 Sepsis due to Pseudomonas (principal); I21.4 Non-ST elevation (NSTEMI) myocardial infarction; J96.21 Acute and chronic respiratory failure with hypoxia; N18.6 End stage renal disease; R53.2 Functional quadriplegia; J15.1 Pneumonia due to Pseudomonas; A04.72 Enterocolitis due to Clostridium difficile, not specified as recurrent; T85.628A Displacement of other specified internal prosthetic devices, implants and grafts, initial encounter; B37.89 Other sites of candidiasis; K94.23 Gastrostomy malfunction; E03.9 Hypothyroidism, unspecified; D63.1 Anemia in chronic kidney disease; G40.909 Epilepsy, unspecified, not intractable, without status epilepticus; I48.0 Paroxysmal atrial fibrillation; E87.6 Hypokalemia; D72.829 Elevated white blood cell count, unspecified; F03.90 Unspecified dementia, unspecified severity, without behavioral disturbance, psychotic disturbance, mood disturbance, and anxiety; Z93.0 Tracheostomy status; Z93.1 Gastrostomy status; Y83.8 Other surgical procedures as the cause of abnormal reaction of the patient, or of later complication, without mention of misadventure at the time of the procedure; E87.70 Fluid overload, unspecified; Y84.8 Other medical procedures as the cause of abnormal reaction of the patient, or of later complication, without mention of misadventure at the time of the procedure
CPT/HCPCS: 0241U-QW; 36415; 36430; 36600; 71045-TC-FY; 80048; 80053; 82272; 82607; 82728; 82746; 82803; 82962; 83540; 83550; 83735; 84100; 84439; 84443; 84466; 84484; 85025; 85027; 85045; 85610; 85730; 86705; 86803; 86850; 86900; 86901; 86922; 87040; 87070; 87081; 87186; 87205; 87324; 87340; 87449; 87517; 93005; 93010; 93306-TC; 94002; 94640; 99285-25; G0480; J1644; P9047; P9058; Q5106

== ENCOUNTER 2023-01-28 06:22 | Inpatient (IN) | payer OTHER ==
[2023-01-28 07:42] LABS: CHLORIDE 90 mmol/L (98-107); SODIUM 126 mmol/L (136-145)
[2023-01-28 07:45] LABS: ALBUMIN 1.7 g/dl (3.4-5.0); CALCIUM 8.6 mg/dL (8.5-10.1); CO2 22 mmol/L (21-32); GLUCOSE,RANDOM 187 mg/dL (74-106); MAGNESIUM 2.7 mg/dL (1.8-2.4)
[2023-01-28 07:46] LABS: HEMATOCRIT 22.4 % (32.4-45.2); HEMOGLOBIN 7.3 GM/dL (10.7-15.3); MCH 30.2 pg (25.7-33.7); MCHC 32.7 g/dl (32.0-36.0); MEAN CELL VOLUME 92.4 fl (80-96); MEAN PLT VOLUME 7.8 fl (7.5-11.1); PLATELET COUNT 388 10^3/uL (134-434); RBC 2.42 M/mm3 (3.60-5.2); RDW 15.4 % (11.6-15.6); WHITE BLOOD COUNT 21.9 K/mm3 (4.0-10.0)
[2023-01-28 07:48] LABS: CREATININE 3.7 mg/dL (0.55-1.3); PHOSPHOROUS 6.2 mg/dL (2.5-4.9)
[2023-01-28 07:50] LABS: BILIRUBIN,TOTAL 0.3 mg/dL (0.2-1)
[2023-01-28 07:51] LABS: ALK PHOS 233 U/L (45-117)
[2023-01-28 07:54] LABS: VENOUS BASE EXCESS 0.2 mmol/L (-2-2); VENOUS O2 SATURATION 48.7 % (70-80); VENOUS PCO2 51.2 mmHg (38-52); VENOUS PH 7.33 (7.310-7.410)
[2023-01-28 08:14] LABS: INR 1.03 (0.83-1.09)
[2023-01-28 08:17] LABS: ACTIVATED PTT 33.4 SECONDS (25.2-36.5)
[2023-01-28 08:39] LABS: ANION GAP 15 MMOL/L (8-16); BLOOD UREA NITROGEN 105.8 mg/dL (7-18); POTASSIUM 8.5 mmol/L (3.5-5.1); SGOT/AST 207 U/L (15-37); SGPT/ALT 79 U/L (13-61)
[2023-01-28 09:04] LABS: ANISOCYTOSIS 0; MACROCYTOSIS 0
[2023-01-28] MEDS ORDERED: PIPERACILLIN/TAZOB 4.5 GM 4.5 GM in DEXTROSE 5%-WATER 100 ML IVPB ONE (09:21)
[2023-01-28] MEDS ORDERED: PIPERACILLIN/TAZOB 4.5 GM 4.5 GM/100 ML BAG IVPB ONE (09:31)
[2023-01-28 09:35] LABS: CHLORIDE 90 mmol/L (98-107); POTASSIUM 4.2 mmol/L (3.5-5.1); SODIUM 130 mmol/L (136-145)
[2023-01-28 09:38] LABS: ANION GAP 13 MMOL/L (8-16); CALCIUM 9.1 mg/dL (8.5-10.1); CO2 28 mmol/L (21-32); GLUCOSE,RANDOM 162 mg/dL (74-106)
[2023-01-28 09:41] LABS: CREATININE 3.8 mg/dL (0.55-1.3)
[2023-01-28 09:42] LABS: BLOOD UREA NITROGEN 104.4 mg/dL (7-18)
[2023-01-28] MEDS ORDERED: ACETYLCYSTEINE 20% 200MG/ML 30 ML VIAL *FOR ORAL / INH USE ONLY NEB ONE (10:35)
[2023-01-28] MEDS ORDERED: ALBUTEROL SO4 2.5/IPRATROPIUM 0.5 INH SOL 3 ML VIAL.NEB. NEB ONE ×2 (10:53→14:14)
[2023-01-28] MEDS ORDERED: ACETYLCYSTEINE 20% 200MG/ML 4 ML VIAL *FOR ORAL / INH USE ONLY ONE (10:54)
[2023-01-28] MEDS: ALBUTEROL SO4 2.5/IPRATROPIUM 0.5 INH SOL 3 ML VIAL.NEB. NEB SCH ×4 (11:02→15:44)
[2023-01-28] MEDS ORDERED: DOXYCYCLINE INJECTION 100 MG in DEXTROSE 5%-WATER 100 ML IVPB SCH (11:30)
[2023-01-28 12:00] LABS: ALLENS TEST POSITIVE; ARTERIAL BLD GAS O2 SATURATION 99.7 % (95-98); ARTERIAL BLOOD GAS BASE EXCESS 2.7 mmol/L (-2-2); ARTERIAL BLOOD GAS PO2 267.3 mmHg (80-100); ARTERIAL BLOOD GAS pH 7.465 (7.350-7.450)
[2023-01-28] MEDS ORDERED: levETIRAcetam 500 MG/5 ML ORAL SOLUTION (UNIT-DOSE CUPS) PO SCH (12:00)
[2023-01-28 12:01] LABS: VENT MODE A/C
[2023-01-28 12:02] LABS: VENT RATE 12
[2023-01-28] MEDS ORDERED: PANTOPRAZOLE 40 MG TABLET PO SCH (13:00)
[2023-01-28] MEDS ORDERED: PANTOPRAZOLE 40 MG TABLET PO ONE (14:14)
[2023-01-28] MEDS ORDERED: DOXYCYCLINE HYCLATE 100 MG VIAL ONE (14:15)
[2023-01-28] MEDS ORDERED: guaiFENesin 200 MG/10 ML 10 ML UNIT-DOSE CUPS GT PRN (14:16)
[2023-01-28] MEDS ORDERED: BISACODYL 10 MG SUPP.RECT RC PRN (14:16)
[2023-01-28] MEDS ORDERED: SODIUM PHOSPHATE/NA BIPHOS 133 ML ENEMA RC PRN (14:16)
[2023-01-28] MEDS ORDERED: MIDODRINE HCL 5 MG TABLET GT PRN (14:16)
[2023-01-28] MEDS ORDERED: SODIUM CHLORIDE 250 ML IV PRN (15:44)
[2023-01-28] MEDS ORDERED: EPOETIN ALFA-EPBX 10,000 UNIT/ML VIAL SQ ONE (16:00)
[2023-01-28 16:38] LABS: EPI CELLS 34 /uL (0-25.1); HYALINE CASTS 8 /uL (0-3.1); PH,URINE 7.5 (5.0-8.0); URINE APPEARANCE CLOUDY; URINE BACTERIA 46 /uL (0-1359); URINE BILIRUBIN NEGATIVE (NEGATIVE); URINE COLOR YELLOW; URINE GLUCOSE (UA) NEGATIVE (NEGATIVE); URINE KETONE NEGATIVE (NEGATIVE); URINE LEUK ESTERASE 3+ (NEGATIVE); URINE NITRITE NEGATIVE (NEGATIVE); URINE PROTEIN 2+ (NEGATIVE); URINE RBC 224 /uL (0-23.9); URINE UROBILINOGEN 0.2 mg/dL (0.2-1.0); URINE WBC 653 /uL (0-25.8)
[2023-01-28] MEDS: VANCOMYCIN ORAL SOLUTION 125 MG/2.5 ML PO SCH (17:37)
[2023-01-28] MEDS ORDERED: PIPERACILLIN/TAZOB 2.25 GM 2.25 GM/50 ML BAG IVPB ONE (18:00)
[2023-01-28] MEDS: PIPERACILLIN/TAZOB 2.25 GM 2.25 GM in DEXTROSE 5%-WATER - 50 ML IVPB SCH (18:36)
[2023-01-28 18:54] LABS: CHLORIDE 90 mmol/L (98-107); POTASSIUM 4.8 mmol/L (3.5-5.1); SODIUM 130 mmol/L (136-145)
[2023-01-28 18:56] LABS: ANION GAP 11 MMOL/L (8-16); CALCIUM 8.7 mg/dL (8.5-10.1); CO2 29 mmol/L (21-32); GLUCOSE,RANDOM 105 mg/dL (74-106); MAGNESIUM 2.6 mg/dL (1.8-2.4)
[2023-01-28 18:59] LABS: CREATININE 3.9 mg/dL (0.55-1.3)
[2023-01-28 19:01] LABS: BLOOD UREA NITROGEN 118.9 mg/dL (7-18)
[2023-01-28] MEDS ORDERED: HEPARIN NA (PORCINE) 5,000 UNITS/ML 1ML VIAL ONE (21:26)
[2023-01-28] MEDS ORDERED: ATORVASTATIN CA 40 MG TABLET (FP) ONE (21:26)
[2023-01-28] MEDS: levETIRAcetam 500 MG/5 ML ORAL SOLUTION (UNIT-DOSE CUPS) GT SCH (21:37)
[2023-01-28] MEDS: HEPARIN NA (PORCINE) 5,000 UNITS/ML 1ML VIAL SQ SCH ×2 (21:37→21:57)
[2023-01-28] MEDS: ATORVASTATIN CA 40 MG TABLET (FP) GT SCH (21:38)
[2023-01-29] MEDS: PIPERACILLIN/TAZOB 2.25 GM 2.25 GM in DEXTROSE 5%-WATER - 50 ML IVPB SCH ×3 (01:06→19:23)
[2023-01-29] MEDS ORDERED: PIPERACILLIN/TAZOB 2.25 GM 2.25 GM/50 ML BAG IVPB ONE ×2 (01:06→10:43)
[2023-01-29] MEDS: ALBUTEROL SO4 2.5/IPRATROPIUM 0.5 INH SOL 3 ML VIAL.NEB. NEB SCH ×5 (07:20→20:20)
[2023-01-29] MEDS: VANCOMYCIN ORAL SOLUTION 125 MG/2.5 ML PO SCH (11:00)
[2023-01-29] MEDS: PANTOPRAZOLE 20 MG TABLET PO SCH (11:00)
[2023-01-29] MEDS: LACTOBACILLUS ACIDOPHILUS 1 TABLET GT SCH (11:00)
[2023-01-29] MEDS: HEPARIN NA (PORCINE) 5,000 UNITS/ML 1ML VIAL SQ SCH ×2 (11:00→22:31)
[2023-01-29] MEDS: levETIRAcetam 500 MG/5 ML ORAL SOLUTION (UNIT-DOSE CUPS) GT SCH ×2 (11:45→22:31)
[2023-01-29 13:03] LABS: BASO % 0.9 % (0-2.0); EOS % 2.8 % (0-4.5); HEMATOCRIT 19.7 % (32.4-45.2); LYMPH % 13.3 % (8-40); MCH 30.4 pg (25.7-33.7); MEAN CELL VOLUME 89.4 fl (80-96); MONO % 9.3 % (3.8-10.2); NEUT % 73.7 % (42.8-82.8); PLATELET COUNT 374 10^3/uL (134-434); RBC 2.21 M/mm3 (3.60-5.2); RDW 14.8 % (11.6-15.6); WHITE BLOOD COUNT 6.9 K/mm3 (4.0-10.0)
[2023-01-29 13:05] LABS: HEMOGLOBIN 6.7 GM/dL (10.7-15.3)
[2023-01-29 13:27] LABS: CHLORIDE 90 mmol/L (98-107); POTASSIUM 4.4 mmol/L (3.5-5.1); SODIUM 130 mmol/L (136-145)
[2023-01-29 13:29] LABS: CALCIUM 8.3 mg/dL (8.5-10.1)
[2023-01-29 13:30] LABS: ALBUMIN 1.8 g/dl (3.4-5.0); ANION GAP 15 MMOL/L (8-16); CO2 25 mmol/L (21-32); GLUCOSE,RANDOM 93 mg/dL (74-106); MAGNESIUM 2.5 mg/dL (1.8-2.4)
[2023-01-29 13:33] LABS: CREATININE 4.3 mg/dL (0.55-1.3); PHOSPHOROUS 4.5 mg/dL (2.5-4.9); SGOT/AST 42 U/L (15-37); SGPT/ALT 40 U/L (13-61)
[2023-01-29 13:34] LABS: BILIRUBIN,TOTAL 0.2 mg/dL (0.2-1); TOT PROT 6.6 g/dl (6.4-8.2)
[2023-01-29 13:35] LABS: ALK PHOS 175 U/L (45-117); BLOOD UREA NITROGEN 125.7 mg/dL (7-18)
[2023-01-29] MEDS ORDERED: EPOETIN ALFA-EPBX 10,000 UNIT/ML VIAL SQ ONE (15:45)
[2023-01-29] MEDS ORDERED: SODIUM CHLORIDE 250 ML IV PRN (15:53)
[2023-01-29] MEDS ORDERED: PIPERACILLIN/TAZOBACTAM 2.25 GM VIAL IVPB ONE (21:34)
[2023-01-29] MEDS: ATORVASTATIN CA 40 MG TABLET (FP) GT SCH (22:31)
[2023-01-30] MEDS: PIPERACILLIN/TAZOB 2.25 GM 2.25 GM in DEXTROSE 5%-WATER - 50 ML IVPB SCH ×2 (02:54→14:11)
[2023-01-30] MEDS: ALBUTEROL SO4 2.5/IPRATROPIUM 0.5 INH SOL 3 ML VIAL.NEB. NEB SCH ×4 (08:00→19:40)
[2023-01-30] MEDS ORDERED: EPOETIN ALFA-EPBX 10,000 UNIT/ML VIAL IVPUSH ONE (09:00)
[2023-01-30 09:29] LABS: HEMATOCRIT 19.7 % (32.4-45.2); MCH 29.5 pg (25.7-33.7); MCHC 32.7 g/dl (32.0-36.0); MEAN CELL VOLUME 90.3 fl (80-96); MEAN PLT VOLUME 7.6 fl (7.5-11.1); PLATELET COUNT 382 10^3/uL (134-434); RBC 2.19 M/mm3 (3.60-5.2); RDW 14.9 % (11.6-15.6); WHITE BLOOD COUNT 7.3 K/mm3 (4.0-10.0)
[2023-01-30 09:33] LABS: HEMOGLOBIN 6.4 GM/dL (10.7-15.3)
[2023-01-30 10:55] LABS: POTASSIUM 3.5 mmol/L (3.5-5.1)
[2023-01-30 10:57] LABS: CALCIUM 8.3 mg/dL (8.5-10.1)
[2023-01-30 10:58] LABS: ALBUMIN 1.9 g/dl (3.4-5.0)
[2023-01-30 11:01] LABS: CREATININE 2.4 mg/dL (0.55-1.3)
[2023-01-30 11:02] LABS: BILIRUBIN,TOTAL 0.4 mg/dL (0.2-1)
[2023-01-30 11:05] LABS: BLOOD UREA NITROGEN 45.9 mg/dL (7-18)
[2023-01-30] MEDS: PANTOPRAZOLE 20 MG TABLET PO SCH (13:09)
[2023-01-30] MEDS: levETIRAcetam 500 MG/5 ML ORAL SOLUTION (UNIT-DOSE CUPS) GT SCH ×2 (13:09→21:55)
[2023-01-30] MEDS: LACTOBACILLUS ACIDOPHILUS 1 TABLET GT SCH (13:09)
[2023-01-30] MEDS: VANCOMYCIN ORAL SOLUTION 125 MG/2.5 ML PO SCH (13:09)
[2023-01-30 15:51] VITALS: BMI 32.8
[2023-01-30] MEDS: ATORVASTATIN CA 40 MG TABLET (FP) GT SCH (21:55)
[2023-01-31] MEDS: ALBUTEROL SO4 2.5/IPRATROPIUM 0.5 INH SOL 3 ML VIAL.NEB. NEB SCH ×4 (07:20→22:02)
[2023-01-31] MEDS ORDERED: AMINO ACIDS/PROTEIN HYDROLYS 30 ML LIQUID.PKT PO SCH (08:00)
[2023-01-31] MEDS: PANTOPRAZOLE 20 MG TABLET PO SCH (09:28)
[2023-01-31] MEDS: levETIRAcetam 500 MG/5 ML ORAL SOLUTION (UNIT-DOSE CUPS) GT SCH ×2 (09:28→21:51)
[2023-01-31] MEDS: LACTOBACILLUS ACIDOPHILUS 1 TABLET GT SCH (09:29)
[2023-01-31] MEDS: HEPARIN NA (PORCINE) 5,000 UNITS/ML 1ML VIAL SQ SCH ×2 (09:30→21:51)
[2023-01-31] MEDS: VANCOMYCIN ORAL SOLUTION 125 MG/2.5 ML PO SCH (09:33)
[2023-01-31] MEDS: PANTOPRAZOLE SODIUM 40 MG VIAL IVPUSH SCH (10:32)
[2023-01-31 12:23] LABS: CHLORIDE 102 mmol/L (98-107); SODIUM 142 mmol/L (136-145)
[2023-01-31 12:31] LABS: CREATININE 1.9 mg/dL (0.55-1.3)
[2023-01-31 12:32] LABS: SGOT/AST 33 U/L (15-37)
[2023-01-31 12:33] LABS: ALBUMIN 2.1 g/dl (3.4-5.0); CALCIUM 8.7 mg/dL (8.5-10.1); CO2 31 mmol/L (21-32); GLUCOSE,RANDOM 104 mg/dL (74-106); TOT PROT 7.5 g/dl (6.4-8.2)
[2023-01-31 12:35] LABS: ALK PHOS 176 U/L (45-117); IRON SERUM 42 ug/dL (50-175); SGPT/ALT 33 U/L (13-61); TOTAL IRON BINDING CAPACITY 129 ug/dL (250-450)
[2023-01-31 12:39] LABS: BILIRUBIN,TOTAL 0.3 mg/dL (0.2-1)
[2023-01-31 12:43] LABS: ANION GAP 9 MMOL/L (8-16); POTASSIUM 2.9 mmol/L (3.5-5.1)
[2023-01-31] MEDS ORDERED: POTASSIUM CHLORIDE ORAL LIQUID 20 MEQ/15 ML PO ONE (13:18)
[2023-01-31] MEDS ORDERED: AMINO ACIDS/PROTEIN HYDROLYS 30 ML LIQUID.PKT GT SCH (13:34)
[2023-01-31] MEDS: KCL 10 MEQ IVPB 10 MEQ/100 ML INFUS.BAG IVPB SCH ×3 (13:38→17:16)
[2023-01-31] MEDS ORDERED: VANCOMYCIN ORAL SOLUTION 125 MG/2.5 ML GT SCH (13:38)
[2023-01-31 13:45] LABS: MAGNESIUM 2.1 mg/dL (1.8-2.4)
[2023-01-31 13:48] LABS: PHOSPHOROUS 2.4 mg/dL (2.5-4.9)
[2023-01-31] MEDS ORDERED: SODIUM CHLORIDE 250 ML IV PRN (15:28)
[2023-01-31 20:03] LABS: BASO % 0.6 % (0-2.0); EOS % 2.4 % (0-4.5); HEMATOCRIT 22.9 % (32.4-45.2); HEMOGLOBIN 7.7 GM/dL (10.7-15.3); LYMPH % 6.7 % (8-40); MCH 29.9 pg (25.7-33.7); MCHC 33.7 g/dl (32.0-36.0); MEAN CELL VOLUME 88.8 fl (80-96); MEAN PLT VOLUME 7.2 fl (7.5-11.1); MONO % 11.4 % (3.8-10.2); NEUT % 78.9 % (42.8-82.8); PLATELET COUNT 378 10^3/uL (134-434); RBC 2.57 M/mm3 (3.60-5.2); RDW 15.5 % (11.6-15.6); WHITE BLOOD COUNT 8.9 K/mm3 (4.0-10.0)
[2023-01-31] MEDS: ATORVASTATIN CA 40 MG TABLET (FP) GT SCH (21:51)
[2023-02-01] MEDS ORDERED: EPOETIN ALFA-EPBX 10,000 UNIT, EPOETIN ALFA-EPBX 2,000 UNIT IVPUSH ONE (08:30)
[2023-02-01] MEDS: ALBUTEROL SO4 2.5/IPRATROPIUM 0.5 INH SOL 3 ML VIAL.NEB. NEB SCH ×3 (08:43→16:18)
[2023-02-01 10:38] LABS: HEMATOCRIT 23.8 % (32.4-45.2); HEMOGLOBIN 7.7 GM/dL (10.7-15.3); MCH 29.2 pg (25.7-33.7); MCHC 32.3 g/dl (32.0-36.0); MEAN CELL VOLUME 90.5 fl (80-96); MEAN PLT VOLUME 7.7 fl (7.5-11.1); PLATELET COUNT 384 10^3/uL (134-434); RBC 2.63 M/mm3 (3.60-5.2); RDW 14.9 % (11.6-15.6)
[2023-02-01 10:56] LABS: POTASSIUM 3.6 mmol/L (3.5-5.1)
[2023-02-01 11:02] LABS: BLOOD UREA NITROGEN 41.8 mg/dL (7-18); CALCIUM 8.9 mg/dL (8.5-10.1); MAGNESIUM 2.1 mg/dL (1.8-2.4)
[2023-02-01 11:06] LABS: CREATININE 2.7 mg/dL (0.55-1.3)
[2023-02-01 11:07] LABS: BILIRUBIN,TOTAL 0.3 mg/dL (0.2-1); TOT PROT 7.2 g/dl (6.4-8.2)
[2023-02-01 13:49] VITALS: BP 145/63; PULSE 75
[2023-02-01 14:02] VITALS: RESP 21
[2023-02-01] MEDS: HEPARIN NA (PORCINE) 5,000 UNITS/ML 1ML VIAL SQ SCH ×2 (14:09→16:40)
[2023-02-01] MEDS: PANTOPRAZOLE SODIUM 40 MG VIAL IVPUSH SCH (14:09)
[2023-02-01] MEDS: levETIRAcetam 500 MG/5 ML ORAL SOLUTION (UNIT-DOSE CUPS) GT SCH (14:09)
[2023-02-01 14:14] VITALS: TEMP 98.1
[2023-02-01] MEDS: LACTOBACILLUS ACIDOPHILUS 1 TABLET GT SCH (14:24)
[2023-02-01] MEDS ORDERED: EPOETIN ALFA-EPBX 10,000 UNIT/ML VIAL SQ ONE (15:28)
== END 2023-02-01 17:35 | DRG 100 ==
LOC: JER 06:22 → JERBED 10:24 → J5S 01-29 16:48
PROVIDERS: ADMIT Internal Medicine; ATTEND Internal Medicine
PROC: 5A1955Z Respiratory Ventilation, Greater than 96 Consecutive Hours (ICD-10-PCS; principal; 2023-01-28)
PROC: 5A1D70Z Performance of Urinary Filtration, Intermittent, Less than 6 Hours Per Day (ICD-10-PCS; 2023-01-29)
PROC: 5A1D70Z Performance of Urinary Filtration, Intermittent, Less than 6 Hours Per Day (ICD-10-PCS; 2023-01-30)
PROC: 5A1D70Z Performance of Urinary Filtration, Intermittent, Less than 6 Hours Per Day (ICD-10-PCS; 2023-02-01)
DX: G40.909 Epilepsy, unspecified, not intractable, without status epilepticus (principal); N18.6 End stage renal disease; R53.2 Functional quadriplegia; I12.0 Hypertensive chronic kidney disease with stage 5 chronic kidney disease or end stage renal disease; K92.2 Gastrointestinal hemorrhage, unspecified; J98.11 Atelectasis; E87.1 Hypo-osmolality and hyponatremia; J96.10 Chronic respiratory failure, unspecified whether with hypoxia or hypercapnia; I48.0 Paroxysmal atrial fibrillation; I25.10 Atherosclerotic heart disease of native coronary artery without angina pectoris; E87.6 Hypokalemia; D64.9 Anemia, unspecified; F03.90 Unspecified dementia, unspecified severity, without behavioral disturbance, psychotic disturbance, mood disturbance, and anxiety; D72.829 Elevated white blood cell count, unspecified; E03.9 Hypothyroidism, unspecified; E11.22 Type 2 diabetes mellitus with diabetic chronic kidney disease; Z99.2 Dependence on renal dialysis; Z86.19 Personal history of other infectious and parasitic diseases
CPT/HCPCS: 0241U-QW; 36415; 36430; 36600; 71045-TC-FY; 71250-TC; 74176-TC; 80048; 80053; 81003; 82550; 82553; 82728; 82803; 83540; 83550; 83735; 84100; 84132; 84146; 84484; 85025; 85027; 85610; 85730; 86803; 86850; 86900; 86901; 86922; 87081; 87340; 93005; 93010; 94002; 94640; 99291; J1644; P9058; Q5106

== ENCOUNTER 2023-03-29 07:57 | Inpatient (IN) | payer OTHER ==
[2023-03-29 09:40] LABS: VENOUS BASE EXCESS -2.3 mmol/L (-2-2); VENOUS O2 SATURATION 81.6 % (70-80); VENOUS PCO2 51.7 mmHg (38-52); VENOUS PH 7.299 (7.310-7.410)
[2023-03-29] MEDS ORDERED: EPINEPHrine 1:10,000 (P-F SYR) 1 MG/10 ML DISP.SYRIN ONE (09:41)
[2023-03-29 09:50] LABS: POTASSIUM 3.7 mmol/L (3.5-5.1)
[2023-03-29 09:53] LABS: ALBUMIN 2.1 g/dl (3.4-5.0); BLOOD UREA NITROGEN 76.9 mg/dL (7-18); CALCIUM 9.6 mg/dL (8.5-10.1)
[2023-03-29 09:56] LABS: CREATININE 3.2 mg/dL (0.55-1.3); INR 1.14 (0.83-1.09); PROTHROMBIN TIME (PATIENT) 13.2 SEC (9.7-13.0)
[2023-03-29 09:58] LABS: BILIRUBIN,TOTAL 0.4 mg/dL (0.2-1); TOT PROT 8.1 g/dl (6.4-8.2)
[2023-03-29 09:59] LABS: ACTIVATED PTT 33.8 SECONDS (25.2-36.5)
[2023-03-29 10:00] LABS: HEMATOCRIT 29.9 % (32.4-45.2); HEMOGLOBIN 9.4 GM/dL (10.7-15.3); LACTIC ACID 4.4 mmol/L (0.4-2.0); MCH 29.5 pg (25.7-33.7); MCHC 31.6 g/dl (32.0-36.0); MEAN CELL VOLUME 93.3 fl (80-96); MEAN PLT VOLUME 7.5 fl (7.5-11.1); PLATELET COUNT 592 10^3/uL (134-434); RDW 17.3 % (11.6-15.6); WHITE BLOOD COUNT 16.7 K/mm3 (4.0-10.0)
[2023-03-29 10:42] LABS: ANISOCYTOSIS 1+; MACROCYTOSIS 0
[2023-03-29] MEDS ORDERED: MIDAZOLAM HCL 2 MG/2 ML SINGLE DOSE VIAL IVPUSH ONE (11:05)
[2023-03-29] MEDS ORDERED: MIDAZOLAM HCL 2 MG/2 ML SINGLE DOSE VIAL ONE (11:10)
[2023-03-29] MEDS ORDERED: DEXMEDETOMIDINE PREMIX 400 MCG/100 ML BAG IVPB SCH (12:30)
[2023-03-29] MEDS: HEPARIN NA (PORCINE) 5,000 UNITS/ML 1ML VIAL SQ SCH ×2 (14:54→21:20)
[2023-03-29 19:16] LABS: LACTIC ACID 2.2 mmol/L (0.4-2.0)
[2023-03-29] MEDS: MUPIROCIN 2% TOPICAL OINTMENT FOR DECOLONIZATION NS SCH (21:19)
[2023-03-29] MEDS: NOREPINEPHRINE BITARTRATE/D5W 8 MG/250 ML BAG IVPB SCH (21:19)
[2023-03-29] MEDS: CHLORHEXIDINE GLUCONATE 4% CLEANSER FOR DECOLONIZATION TP SCH (21:21)
[2023-03-29] MEDS: ATORVASTATIN CA 40 MG TABLET (FP) PO SCH (21:21)
[2023-03-29] MEDS: levETIRAcetam 500 MG/5 ML ORAL SOLUTION (UNIT-DOSE CUPS) PO SCH (21:21)
[2023-03-30] MEDS: HEPARIN NA (PORCINE) 5,000 UNITS/ML 1ML VIAL SQ SCH ×3 (05:05→21:01)
[2023-03-30] MEDS ORDERED: PIPERACILLIN/TAZOB 4.5 GM 4.5 GM in DEXTROSE 5%-WATER 100 ML IVPB ONE (06:39)
[2023-03-30] MEDS ORDERED: PIPERACILLIN/TAZOB 2.25 GM 2.25 GM in DEXTROSE 5%-WATER - 50 ML IVPB ONE (06:56)
[2023-03-30 07:55] LABS: POTASSIUM 3.8 mmol/L (3.5-5.1)
[2023-03-30 08:00] LABS: ALBUMIN 2.2 g/dl (3.4-5.0); MAGNESIUM 2.4 mg/dL (1.8-2.4)
[2023-03-30 08:01] LABS: HEMATOCRIT 27.4 % (32.4-45.2); HEMOGLOBIN 9.3 GM/dL (10.7-15.3); MCH 30.5 pg (25.7-33.7); MCHC 33.8 g/dl (32.0-36.0); MEAN CELL VOLUME 90.1 fl (80-96); MEAN PLT VOLUME 7.6 fl (7.5-11.1); RBC 3.04 M/mm3 (3.60-5.2); RDW 17.1 % (11.6-15.6)
[2023-03-30 08:02] LABS: CALCIUM 9.1 mg/dL (8.5-10.1)
[2023-03-30 08:03] LABS: PHOSPHOROUS 5.7 mg/dL (2.5-4.9)
[2023-03-30 08:04] LABS: WHITE BLOOD COUNT 17.2 K/mm3 (4.0-10.0)
[2023-03-30 08:04] LABS: BILIRUBIN,TOTAL 0.3 mg/dL (0.2-1); TOT PROT 8.1 g/dl (6.4-8.2)
[2023-03-30 08:09] LABS: PLATELET COUNT 519 10^3/uL (134-434)
[2023-03-30 09:10] LABS: ANISOCYTOSIS 0; HELMET CELLS 0; HOWELL-JOLLY BODIES 0; MACROCYTOSIS 0; OVALOCYTE 0; ROULEAU 0; SICKELED CELLS 0; TARGET CELLS 0; TEAR DROP CELLS 0; TOXIC GRANULATION 0
[2023-03-30] MEDS: FAMOTIDINE 20 MG/2.5 ML ORAL LIQUID PEG SCH (10:20)
[2023-03-30] MEDS: MUPIROCIN 2% TOPICAL OINTMENT FOR DECOLONIZATION NS SCH ×2 (10:20→21:01)
[2023-03-30] MEDS: levETIRAcetam 500 MG/5 ML ORAL SOLUTION (UNIT-DOSE CUPS) PO SCH ×2 (10:20→21:02)
[2023-03-30] MEDS: ASPIRIN 81 MG CHEWABLE TABLETS PO SCH (10:20)
[2023-03-30] MEDS: PIPERACILLIN/TAZOB 2.25 GM 2.25 GM in DEXTROSE 5%-WATER - 50 ML IVPB SCH ×3 (11:50→20:43)
[2023-03-30] MEDS ORDERED: EPOETIN ALFA-EPBX 4,000 UNIT/ML VIAL IVPUSH ONE (14:00)
[2023-03-30] MEDS ORDERED: SODIUM CHLORIDE 250 ML IV PRN (14:00)
[2023-03-30] MEDS: CHLORHEXIDINE GLUCONATE 4% CLEANSER FOR DECOLONIZATION TP SCH (21:01)
[2023-03-30] MEDS: NOREPINEPHRINE BITARTRATE/D5W 8 MG/250 ML BAG IVPB SCH (21:01)
[2023-03-30] MEDS: ATORVASTATIN CA 40 MG TABLET (FP) PO SCH (21:02)
[2023-03-31] MEDS: ACETAMINOPHEN 650 MG/20.3 ML ORAL SOLUTION (CUPS) GT PRN ×2 (00:17→10:17)
[2023-03-31] MEDS: PIPERACILLIN/TAZOB 2.25 GM 2.25 GM in DEXTROSE 5%-WATER - 50 ML IVPB SCH ×3 (04:06→21:34)
[2023-03-31] MEDS: HEPARIN NA (PORCINE) 5,000 UNITS/ML 1ML VIAL SQ SCH ×3 (05:20→21:34)
[2023-03-31 08:52] LABS: HEMATOCRIT 24.4 % (32.4-45.2); HEMOGLOBIN 8.1 GM/dL (10.7-15.3); MCH 30.4 pg (25.7-33.7); MCHC 33.3 g/dl (32.0-36.0); MEAN CELL VOLUME 91.2 fl (80-96); MEAN PLT VOLUME 7.2 fl (7.5-11.1); PLATELET COUNT 482 10^3/uL (134-434); RBC 2.68 M/mm3 (3.60-5.2); RDW 17.2 % (11.6-15.6); WHITE BLOOD COUNT 11.9 K/mm3 (4.0-10.0)
[2023-03-31 09:07] LABS: CALCIUM 8.8 mg/dL (8.5-10.1)
[2023-03-31 09:09] LABS: CREATININE 2.4 mg/dL (0.55-1.3)
[2023-03-31 09:10] LABS: PHOSPHOROUS 2.7 mg/dL (2.5-4.9)
[2023-03-31 09:11] LABS: BILIRUBIN,TOTAL 0.6 mg/dL (0.2-1); TOT PROT 7.4 g/dl (6.4-8.2)
[2023-03-31 09:18] LABS: BLOOD UREA NITROGEN 40.7 mg/dL (7-18)
[2023-03-31] MEDS ORDERED: MIDODRINE HCL 5 MG TABLET PO SCH (10:00)
[2023-03-31] MEDS: ASPIRIN 81 MG CHEWABLE TABLETS PO SCH (10:18)
[2023-03-31] MEDS: MIDODRINE HCL 5 MG TABLET PEG SCH ×3 (10:18→18:51)
[2023-03-31] MEDS: levETIRAcetam 500 MG/5 ML ORAL SOLUTION (UNIT-DOSE CUPS) PO SCH ×2 (10:18→21:34)
[2023-03-31] MEDS: FAMOTIDINE 20 MG/2.5 ML ORAL LIQUID PEG SCH (10:19)
[2023-03-31] MEDS: MUPIROCIN 2% TOPICAL OINTMENT FOR DECOLONIZATION NS SCH ×2 (10:21→21:35)
[2023-03-31] MEDS ORDERED: KCL 20 MEQ PREMIX BAG 100 ML IVPB ONE (10:45)
[2023-03-31] MEDS: ATORVASTATIN CA 40 MG TABLET (FP) PO SCH (21:34)
[2023-03-31] MEDS: NOREPINEPHRINE BITARTRATE/D5W 8 MG/250 ML BAG IVPB SCH (21:35)
[2023-03-31] MEDS: CHLORHEXIDINE GLUCONATE 4% CLEANSER FOR DECOLONIZATION TP SCH (21:35)
[2023-04-01] MEDS: HEPARIN NA (PORCINE) 5,000 UNITS/ML 1ML VIAL SQ SCH ×2 (05:20→14:55)
[2023-04-01] MEDS: PIPERACILLIN/TAZOB 2.25 GM 2.25 GM in DEXTROSE 5%-WATER - 50 ML IVPB SCH ×3 (05:20→19:54)
[2023-04-01 08:22] LABS: BASO % 0.4 % (0-2.0); EOS % 2.3 % (0-4.5); HEMATOCRIT 23.8 % (32.4-45.2); HEMOGLOBIN 7.7 GM/dL (10.7-15.3); LYMPH % 5.4 % (8-40); MCH 29.8 pg (25.7-33.7); MCHC 32.2 g/dl (32.0-36.0); MEAN CELL VOLUME 92.7 fl (80-96); MONO % 10.8 % (3.8-10.2); NEUT % 81.1 % (42.8-82.8); PLATELET COUNT 481 10^3/uL (134-434); RBC 2.57 M/mm3 (3.60-5.2); RDW 17.2 % (11.6-15.6); WHITE BLOOD COUNT 13.1 K/mm3 (4.0-10.0)
[2023-04-01 08:43] LABS: POTASSIUM 3.2 mmol/L (3.5-5.1)
[2023-04-01 08:45] LABS: CALCIUM 8.7 mg/dL (8.5-10.1)
[2023-04-01 08:46] LABS: ALBUMIN 1.9 g/dl (3.4-5.0); BLOOD UREA NITROGEN 59.2 mg/dL (7-18); MAGNESIUM 1.9 mg/dL (1.8-2.4)
[2023-04-01 08:49] LABS: CREATININE 3.2 mg/dL (0.55-1.3); PHOSPHOROUS 3.6 mg/dL (2.5-4.9)
[2023-04-01 08:51] LABS: BILIRUBIN,TOTAL 0.2 mg/dL (0.2-1); TOT PROT 7.1 g/dl (6.4-8.2)
[2023-04-01] MEDS: KCL 10 MEQ IVPB 10 MEQ/100 ML INFUS.BAG IVPB SCH ×3 (09:49→11:50)
[2023-04-01] MEDS: MIDODRINE HCL 5 MG TABLET PEG SCH ×3 (09:51→17:50)
[2023-04-01] MEDS: levETIRAcetam 500 MG/5 ML ORAL SOLUTION (UNIT-DOSE CUPS) PO SCH (09:52)
[2023-04-01] MEDS: ASPIRIN 81 MG CHEWABLE TABLETS PO SCH (09:52)
[2023-04-01] MEDS: FAMOTIDINE 20 MG/2.5 ML ORAL LIQUID PEG SCH (09:52)
[2023-04-01] MEDS: MUPIROCIN 2% TOPICAL OINTMENT FOR DECOLONIZATION NS SCH (09:54)
[2023-04-01] MEDS: ACETAMINOPHEN 650 MG/20.3 ML ORAL SOLUTION (CUPS) GT PRN (11:53)
[2023-04-01] MEDS ORDERED: NOREPINEPHRINE BITARTRATE/D5W 8 MG/250 ML BAG IVPB SCH (22:38)
[2023-04-02] MEDS: ATORVASTATIN CA 40 MG TABLET (FP) PO SCH ×3 (01:30→21:50)
[2023-04-02] MEDS: levETIRAcetam 500 MG/5 ML ORAL SOLUTION (UNIT-DOSE CUPS) PO SCH ×4 (01:30→21:50)
[2023-04-02] MEDS: PIPERACILLIN/TAZOB 2.25 GM 2.25 GM in DEXTROSE 5%-WATER - 50 ML IVPB SCH ×3 (02:57→18:17)
[2023-04-02] MEDS: HEPARIN NA (PORCINE) 5,000 UNITS/ML 1ML VIAL SQ SCH ×5 (03:21→21:49)
[2023-04-02] MEDS: CHLORHEXIDINE GLUCONATE 4% CLEANSER FOR DECOLONIZATION TP SCH (03:53)
[2023-04-02] MEDS: NOREPINEPHRINE BITARTRATE/D5W 8 MG/250 ML BAG IVPB SCH (03:54)
[2023-04-02] MEDS: MUPIROCIN 2% TOPICAL OINTMENT FOR DECOLONIZATION NS SCH (03:55)
[2023-04-02] MEDS ORDERED: PIPERACILLIN/TAZOB 2.25 GM 2.25 GM in DEXTROSE 5%-WATER - 50 ML IVPB SCH (04:30)
[2023-04-02] MEDS ORDERED: HEPARIN NA (PORCINE) 5,000 UNITS/ML 1ML VIAL SQ SCH (06:00)
[2023-04-02] MEDS ORDERED: SODIUM CHLORIDE 250 ML IV PRN (07:50)
[2023-04-02] MEDS ORDERED: EPOETIN ALFA-EPBX 4,000 UNIT/ML VIAL IVPUSH ONE (09:00)
[2023-04-02 09:37] LABS: BASO % 0.6 % (0-2.0); EOS % 1.2 % (0-4.5); HEMATOCRIT 24.4 % (32.4-45.2); HEMOGLOBIN 8.2 GM/dL (10.7-15.3); LYMPH % 4.2 % (8-40); MCH 30.4 pg (25.7-33.7); MCHC 33.5 g/dl (32.0-36.0); MEAN CELL VOLUME 90.7 fl (80-96); MONO % 10.1 % (3.8-10.2); NEUT % 83.9 % (42.8-82.8); PLATELET COUNT 481 10^3/uL (134-434); RBC 2.69 M/mm3 (3.60-5.2); RDW 17.7 % (11.6-15.6); WHITE BLOOD COUNT 15.3 K/mm3 (4.0-10.0)
[2023-04-02] MEDS ORDERED: SODIUM CHLORIDE 1,000 ML IV STA (09:43)
[2023-04-02 09:49] LABS: POTASSIUM 3.4 mmol/L (3.5-5.1)
[2023-04-02 09:56] LABS: ALBUMIN 1.9 g/dl (3.4-5.0); CALCIUM 9.5 mg/dL (8.5-10.1); MAGNESIUM 2.3 mg/dL (1.8-2.4)
[2023-04-02 09:57] LABS: BLOOD UREA NITROGEN 73.2 mg/dL (7-18)
[2023-04-02 09:59] LABS: CREATININE 4.1 mg/dL (0.55-1.3)
[2023-04-02 10:00] LABS: PHOSPHOROUS 4.5 mg/dL (2.5-4.9)
[2023-04-02] MEDS ORDERED: levETIRAcetam 500 MG/5 ML ORAL SOLUTION (UNIT-DOSE CUPS) PO SCH (10:00)
[2023-04-02] MEDS ORDERED: ASPIRIN 81 MG CHEWABLE TABLETS PO SCH (10:00)
[2023-04-02] MEDS ORDERED: MUPIROCIN 2% TOPICAL OINTMENT FOR DECOLONIZATION NS SCH (10:00)
[2023-04-02 10:01] LABS: BILIRUBIN,TOTAL 0.3 mg/dL (0.2-1); TOT PROT 7.4 g/dl (6.4-8.2)
[2023-04-02] MEDS: FAMOTIDINE 20 MG/2.5 ML ORAL LIQUID PEG SCH (11:03)
[2023-04-02] MEDS: MIDODRINE HCL 5 MG TABLET PEG SCH ×3 (13:30→18:23)
[2023-04-02] MEDS ORDERED: ATORVASTATIN CA 40 MG TABLET (FP) PO SCH (22:00)
[2023-04-02] MEDS ORDERED: CHLORHEXIDINE GLUCONATE 4% CLEANSER FOR DECOLONIZATION TP SCH (22:00)
[2023-04-03] MEDS: PIPERACILLIN/TAZOB 2.25 GM 2.25 GM in DEXTROSE 5%-WATER - 50 ML IVPB SCH ×3 (02:11→17:21)
[2023-04-03] MEDS: HEPARIN NA (PORCINE) 5,000 UNITS/ML 1ML VIAL SQ SCH ×3 (05:46→21:54)
[2023-04-03] MEDS: MIDODRINE HCL 5 MG TABLET PEG SCH ×4 (10:14→17:21)
[2023-04-03] MEDS: levETIRAcetam 500 MG/5 ML ORAL SOLUTION (UNIT-DOSE CUPS) PEG SCH ×2 (11:13→21:54)
[2023-04-03] MEDS: FAMOTIDINE 20 MG/2.5 ML ORAL LIQUID PEG SCH (11:13)
[2023-04-03] MEDS: ASPIRIN 81 MG CHEWABLE TABLETS PEG SCH (11:13)
[2023-04-03 11:16] LABS: BASO % 0.5 % (0-2.0); EOS % 0.7 % (0-4.5); HEMATOCRIT 23.4 % (32.4-45.2); HEMOGLOBIN 7.5 GM/dL (10.7-15.3); MCH 29.4 pg (25.7-33.7); MCHC 32.1 g/dl (32.0-36.0); MEAN CELL VOLUME 91.8 fl (80-96); MEAN PLT VOLUME 7.2 fl (7.5-11.1); NEUT % 81.8 % (42.8-82.8); PLATELET COUNT 385 10^3/uL (134-434); RBC 2.55 M/mm3 (3.60-5.2); RDW 17.8 % (11.6-15.6); WHITE BLOOD COUNT 13.2 K/mm3 (4.0-10.0)
[2023-04-03 11:38] LABS: POTASSIUM 3.1 mmol/L (3.5-5.1)
[2023-04-03 11:43] LABS: CALCIUM 8.7 mg/dL (8.5-10.1)
[2023-04-03 11:44] LABS: ALBUMIN 1.7 g/dl (3.4-5.0); BLOOD UREA NITROGEN 60.3 mg/dL (7-18)
[2023-04-03 11:47] LABS: CREATININE 3.7 mg/dL (0.55-1.3)
[2023-04-03 11:48] LABS: BILIRUBIN,TOTAL 0.3 mg/dL (0.2-1); TOT PROT 6.6 g/dl (6.4-8.2)
[2023-04-03] MEDS ORDERED: SODIUM CHLORIDE 250 ML IV PRN (16:01)
[2023-04-03 16:56] VITALS: BMI 30.4
[2023-04-03] MEDS: ATORVASTATIN CA 40 MG TABLET (FP) PEG SCH (21:55)
[2023-04-04] MEDS: PIPERACILLIN/TAZOB 2.25 GM 2.25 GM in DEXTROSE 5%-WATER - 50 ML IVPB SCH ×3 (02:02→18:51)
[2023-04-04] MEDS: HEPARIN NA (PORCINE) 5,000 UNITS/ML 1ML VIAL SQ SCH ×3 (05:25→22:42)
[2023-04-04] MEDS: MIDODRINE HCL 5 MG TABLET PEG SCH ×4 (08:18→18:52)
[2023-04-04] MEDS ORDERED: EPOETIN ALFA-EPBX 4,000 UNIT/ML VIAL SQ ONE (09:30)
[2023-04-04] MEDS: ASPIRIN 81 MG CHEWABLE TABLETS PEG SCH (12:16)
[2023-04-04] MEDS: levETIRAcetam 500 MG/5 ML ORAL SOLUTION (UNIT-DOSE CUPS) PEG SCH ×2 (12:16→22:43)
[2023-04-04] MEDS: FAMOTIDINE 20 MG/2.5 ML ORAL LIQUID PEG SCH (12:17)
[2023-04-04 12:29] LABS: BASO % 0.4 % (0-2.0); EOS % 1.8 % (0-4.5); HEMOGLOBIN 7.5 GM/dL (10.7-15.3); LYMPH % 5.4 % (8-40); MCH 29.6 pg (25.7-33.7); MCHC 32.5 g/dl (32.0-36.0); MEAN CELL VOLUME 91.1 fl (80-96); MONO % 15.4 % (3.8-10.2); PLATELET COUNT 376 10^3/uL (134-434); RBC 2.52 M/mm3 (3.60-5.2); RDW 17.8 % (11.6-15.6); WHITE BLOOD COUNT 11.6 K/mm3 (4.0-10.0)
[2023-04-04 12:44] LABS: CHLORIDE 89 mmol/L (98-107); SODIUM 129 mmol/L (136-145)
[2023-04-04 12:50] LABS: ALBUMIN 1.7 g/dl (3.4-5.0); BLOOD UREA NITROGEN 76.8 mg/dL (7-18); CALCIUM 8.3 mg/dL (8.5-10.1); CO2 25 mmol/L (21-32); GLUCOSE,RANDOM 110 mg/dL (74-106)
[2023-04-04 12:51] LABS: CREATININE 4.2 mg/dL (0.55-1.3)
[2023-04-04 12:52] LABS: SGOT/AST 33 U/L (15-37)
[2023-04-04 12:53] LABS: BILIRUBIN,TOTAL 0.4 mg/dL (0.2-1); SGPT/ALT 45 U/L (13-61); TOT PROT 6.6 g/dl (6.4-8.2)
[2023-04-04 12:54] LABS: ALK PHOS 112 U/L (45-117)
[2023-04-04 13:03] LABS: ANION GAP 15 mmol/L (4-13); POTASSIUM 2.9 mmol/L (3.5-5.1)
[2023-04-04 15:02] LABS: MAGNESIUM 2.4 mg/dL (1.8-2.4)
[2023-04-04] MEDS: POTASSIUM CHLORIDE ORAL LIQUID 20 MEQ/15 ML GT SCH ×2 (15:36→22:43)
[2023-04-04] MEDS: ATORVASTATIN CA 40 MG TABLET (FP) PEG SCH (22:43)
[2023-04-05] MEDS: PIPERACILLIN/TAZOB 2.25 GM 2.25 GM in DEXTROSE 5%-WATER - 50 ML IVPB SCH ×3 (02:02→17:06)
[2023-04-05] MEDS: ACETAMINOPHEN 650 MG/20.3 ML ORAL SOLUTION (CUPS) GT PRN ×2 (02:40→13:29)
[2023-04-05] MEDS: HEPARIN NA (PORCINE) 5,000 UNITS/ML 1ML VIAL SQ SCH ×3 (06:25→22:40)
[2023-04-05] MEDS: ASPIRIN 81 MG CHEWABLE TABLETS PEG SCH (10:12)
[2023-04-05] MEDS: FAMOTIDINE 20 MG/2.5 ML ORAL LIQUID PEG SCH (10:12)
[2023-04-05] MEDS: levETIRAcetam 500 MG/5 ML ORAL SOLUTION (UNIT-DOSE CUPS) PEG SCH ×2 (10:12→22:41)
[2023-04-05] MEDS: MIDODRINE HCL 5 MG TABLET PEG SCH ×4 (10:16→18:28)
[2023-04-05 13:23] LABS: BASO % 0.4 % (0-2.0); EOS % 1.4 % (0-4.5); HEMATOCRIT 23.3 % (32.4-45.2); HEMOGLOBIN 7.3 GM/dL (10.7-15.3); LYMPH % 7.5 % (8-40); MCH 29.4 pg (25.7-33.7); MCHC 31.3 g/dl (32.0-36.0); MEAN CELL VOLUME 93.7 fl (80-96); MEAN PLT VOLUME 7.3 fl (7.5-11.1); MONO % 19.7 % (3.8-10.2); PLATELET COUNT 387 10^3/uL (134-434); RBC 2.48 M/mm3 (3.60-5.2); RDW 17.6 % (11.6-15.6); WHITE BLOOD COUNT 11.2 K/mm3 (4.0-10.0)
[2023-04-05 13:31] LABS: ALBUMIN 1.7 g/dl (3.4-5.0); CALCIUM 9.1 mg/dL (8.5-10.1)
[2023-04-05 13:34] LABS: CREATININE 2.7 mg/dL (0.55-1.3); PHOSPHOROUS 3.1 mg/dL (2.5-4.9)
[2023-04-05 13:35] LABS: TOT PROT 6.9 g/dl (6.4-8.2)
[2023-04-05 13:36] LABS: BILIRUBIN,TOTAL 0.2 mg/dL (0.2-1)
[2023-04-05 13:47] LABS: BLOOD UREA NITROGEN 40.2 mg/dL (7-18)
[2023-04-05] MEDS ORDERED: SODIUM CHLORIDE 250 ML IV PRN (17:17)
[2023-04-05] MEDS: ATORVASTATIN CA 40 MG TABLET (FP) PEG SCH (22:41)
[2023-04-06] MEDS: PIPERACILLIN/TAZOB 2.25 GM 2.25 GM in DEXTROSE 5%-WATER - 50 ML IVPB SCH ×3 (04:19→17:45)
[2023-04-06] MEDS: HEPARIN NA (PORCINE) 5,000 UNITS/ML 1ML VIAL SQ SCH ×3 (05:04→22:37)
[2023-04-06] MEDS ORDERED: EPOETIN ALFA-EPBX 4,000 UNIT/ML VIAL IVPUSH ONE (07:30)
[2023-04-06] MEDS: MIDODRINE HCL 5 MG TABLET PEG SCH ×3 (08:10→17:45)
[2023-04-06 10:12] LABS: BASO % 0.7 % (0-2.0); EOS % 2.3 % (0-4.5); HEMATOCRIT 23.2 % (32.4-45.2); HEMOGLOBIN 7.5 GM/dL (10.7-15.3); LYMPH % 6.2 % (8-40); MCH 29.8 pg (25.7-33.7); MCHC 32.5 g/dl (32.0-36.0); MEAN CELL VOLUME 91.9 fl (80-96); MEAN PLT VOLUME 7.6 fl (7.5-11.1); MONO % 12.2 % (3.8-10.2); NEUT % 78.6 % (42.8-82.8); PLATELET COUNT 377 10^3/uL (134-434); RBC 2.52 M/mm3 (3.60-5.2); RDW 17.9 % (11.6-15.6); WHITE BLOOD COUNT 9.9 K/mm3 (4.0-10.0)
[2023-04-06 10:40] LABS: POTASSIUM 3.4 mmol/L (3.5-5.1)
[2023-04-06 10:54] LABS: CALCIUM 8.7 mg/dL (8.5-10.1)
[2023-04-06 10:55] LABS: ALBUMIN 1.7 g/dl (3.4-5.0); BLOOD UREA NITROGEN 46.7 mg/dL (7-18); MAGNESIUM 2.1 mg/dL (1.8-2.4)
[2023-04-06 10:57] LABS: CREATININE 2.9 mg/dL (0.55-1.3)
[2023-04-06 10:58] LABS: PHOSPHOROUS 3.3 mg/dL (2.5-4.9); TOT PROT 6.7 g/dl (6.4-8.2)
[2023-04-06 11:01] LABS: BILIRUBIN,TOTAL 0.3 mg/dL (0.2-1)
[2023-04-06] MEDS: levETIRAcetam 500 MG/5 ML ORAL SOLUTION (UNIT-DOSE CUPS) PEG SCH ×2 (11:53→22:37)
[2023-04-06] MEDS: ASPIRIN 81 MG CHEWABLE TABLETS PEG SCH (11:53)
[2023-04-06] MEDS: FAMOTIDINE 20 MG/2.5 ML ORAL LIQUID PEG SCH (11:53)
[2023-04-06] MEDS ORDERED: PIPERACILLIN/TAZOBACTAM 2.25 GM VIAL IVPB ONE (17:46)
[2023-04-06] MEDS: ACETAMINOPHEN 650 MG/20.3 ML ORAL SOLUTION (CUPS) GT PRN (17:53)
[2023-04-06] MEDS: ATORVASTATIN CA 40 MG TABLET (FP) PEG SCH (22:37)
[2023-04-07] MEDS: PIPERACILLIN/TAZOB 2.25 GM 2.25 GM in DEXTROSE 5%-WATER - 50 ML IVPB SCH ×3 (02:21→17:26)
[2023-04-07] MEDS: HEPARIN NA (PORCINE) 5,000 UNITS/ML 1ML VIAL SQ SCH ×3 (06:21→21:46)
[2023-04-07] MEDS: levETIRAcetam 500 MG/5 ML ORAL SOLUTION (UNIT-DOSE CUPS) PEG SCH ×2 (09:48→21:46)
[2023-04-07] MEDS: MIDODRINE HCL 5 MG TABLET PEG SCH ×3 (09:48→17:26)
[2023-04-07] MEDS: ASPIRIN 81 MG CHEWABLE TABLETS PEG SCH (09:48)
[2023-04-07] MEDS: FAMOTIDINE 20 MG/2.5 ML ORAL LIQUID PEG SCH (09:54)
[2023-04-07] MEDS: ATORVASTATIN CA 40 MG TABLET (FP) PEG SCH (21:46)
[2023-04-08] MEDS: PIPERACILLIN/TAZOB 2.25 GM 2.25 GM in DEXTROSE 5%-WATER - 50 ML IVPB SCH (02:16)
[2023-04-08] MEDS: HEPARIN NA (PORCINE) 5,000 UNITS/ML 1ML VIAL SQ SCH ×3 (05:39→23:38)
[2023-04-08] MEDS: levETIRAcetam 500 MG/5 ML ORAL SOLUTION (UNIT-DOSE CUPS) PEG SCH ×2 (09:35→23:38)
[2023-04-08] MEDS: MIDODRINE HCL 5 MG TABLET PEG SCH ×3 (09:35→18:14)
[2023-04-08] MEDS: ASPIRIN 81 MG CHEWABLE TABLETS PEG SCH (09:35)
[2023-04-08] MEDS: FAMOTIDINE 20 MG/2.5 ML ORAL LIQUID PEG SCH (09:37)
[2023-04-08] MEDS ORDERED: SODIUM CHLORIDE 250 ML IV PRN (09:58)
[2023-04-08 09:59] LABS: BASO % 0.7 % (0-2.0); EOS % 2.5 % (0-4.5); HEMATOCRIT 22.7 % (32.4-45.2); HEMOGLOBIN 7.5 GM/dL (10.7-15.3); LYMPH % 9.8 % (8-40); MCHC 32.9 g/dl (32.0-36.0); MEAN CELL VOLUME 94.2 fl (80-96); MEAN PLT VOLUME 7.3 fl (7.5-11.1); MONO % 11.7 % (3.8-10.2); NEUT % 75.3 % (42.8-82.8); PLATELET COUNT 408 10^3/uL (134-434); RBC 2.41 M/mm3 (3.60-5.2); RDW 17.4 % (11.6-15.6); WHITE BLOOD COUNT 10.1 K/mm3 (4.0-10.0)
[2023-04-08 10:36] LABS: POTASSIUM 3.4 mmol/L (3.5-5.1)
[2023-04-08 10:40] LABS: ALBUMIN 1.6 g/dl (3.4-5.0); BLOOD UREA NITROGEN 49.1 mg/dL (7-18)
[2023-04-08 10:41] LABS: PHOSPHOROUS 3.9 mg/dL (2.5-4.9)
[2023-04-08 10:44] LABS: BILIRUBIN,TOTAL 0.2 mg/dL (0.2-1); TOT PROT 6.7 g/dl (6.4-8.2)
[2023-04-08 10:45] LABS: CREATININE 3.1 mg/dL (0.55-1.3)
[2023-04-08] MEDS: ATORVASTATIN CA 40 MG TABLET (FP) PEG SCH (23:38)
[2023-04-09] MEDS: ACETAMINOPHEN 650 MG/20.3 ML ORAL SOLUTION (CUPS) GT PRN ×3 (01:20→23:00)
[2023-04-09] MEDS: HEPARIN NA (PORCINE) 5,000 UNITS/ML 1ML VIAL SQ SCH ×3 (05:25→23:00)
[2023-04-09 09:05] LABS: BASO % 0.8 % (0-2.0); EOS % 2.6 % (0-4.5); HEMATOCRIT 21.9 % (32.4-45.2); HEMOGLOBIN 7.1 GM/dL (10.7-15.3); LYMPH % 10.9 % (8-40); MCH 30.5 pg (25.7-33.7); MCHC 32.5 g/dl (32.0-36.0); MEAN CELL VOLUME 93.8 fl (80-96); MEAN PLT VOLUME 7.6 fl (7.5-11.1); NEUT % 74.7 % (42.8-82.8); PLATELET COUNT 385 10^3/uL (134-434); RBC 2.33 M/mm3 (3.60-5.2); RDW 17.4 % (11.6-15.6); WHITE BLOOD COUNT 8.9 K/mm3 (4.0-10.0)
[2023-04-09] MEDS: ALBUMIN HUMAN 25% 12.5 GM/50 ML VIAL IV SCH ×4 (09:30→11:45)
[2023-04-09 09:41] LABS: BLOOD UREA NITROGEN 62.5 mg/dL (7-18)
[2023-04-09 09:42] LABS: ALBUMIN 1.7 g/dl (3.4-5.0); CALCIUM 9.1 mg/dL (8.5-10.1)
[2023-04-09 09:47] LABS: BILIRUBIN,TOTAL 0.3 mg/dL (0.2-1); TOT PROT 6.6 g/dl (6.4-8.2)
[2023-04-09] MEDS: MIDODRINE HCL 5 MG TABLET PEG SCH ×3 (10:00→17:44)
[2023-04-09] MEDS ORDERED: EPOETIN ALFA-EPBX 4,000 UNIT/ML VIAL IVPUSH ONE (10:10)
[2023-04-09] MEDS ORDERED: EPOETIN ALFA-EPBX 10,000 UNIT/ML VIAL IVPUSH ONE (10:15)
[2023-04-09] MEDS ORDERED: POTASSIUM CHLORIDE ORAL LIQUID 20 MEQ/15 ML GT ONE (10:30)
[2023-04-09] MEDS: FAMOTIDINE 20 MG/2.5 ML ORAL LIQUID PEG SCH (12:55)
[2023-04-09] MEDS: levETIRAcetam 500 MG/5 ML ORAL SOLUTION (UNIT-DOSE CUPS) PEG SCH ×2 (12:56→23:00)
[2023-04-09] MEDS: ASPIRIN 81 MG CHEWABLE TABLETS PEG SCH (12:56)
[2023-04-09] MEDS: ATORVASTATIN CA 40 MG TABLET (FP) PEG SCH (23:00)
[2023-04-10] MEDS: HEPARIN NA (PORCINE) 5,000 UNITS/ML 1ML VIAL SQ SCH ×3 (06:36→23:06)
[2023-04-10] MEDS: MIDODRINE HCL 5 MG TABLET PEG SCH ×4 (10:26→17:52)
[2023-04-10] MEDS: FAMOTIDINE 20 MG/2.5 ML ORAL LIQUID PEG SCH (10:26)
[2023-04-10] MEDS: levETIRAcetam 500 MG/5 ML ORAL SOLUTION (UNIT-DOSE CUPS) PEG SCH ×2 (10:26→23:07)
[2023-04-10] MEDS: ASPIRIN 81 MG CHEWABLE TABLETS PEG SCH (10:26)
[2023-04-10 11:02] LABS: HEMOGLOBIN 7.6 GM/dL (10.7-15.3); MCH 30.2 pg (25.7-33.7); MCHC 31.8 g/dl (32.0-36.0); MEAN CELL VOLUME 94.9 fl (80-96); MEAN PLT VOLUME 7.6 fl (7.5-11.1); PLATELET COUNT 358 10^3/uL (134-434); RBC 2.53 M/mm3 (3.60-5.2); RDW 17.9 % (11.6-15.6); WHITE BLOOD COUNT 8.2 K/mm3 (4.0-10.0)
[2023-04-10 11:35] LABS: POTASSIUM 4.1 mmol/L (3.5-5.1)
[2023-04-10 11:38] LABS: CALCIUM 9.4 mg/dL (8.5-10.1)
[2023-04-10 11:42] LABS: CREATININE 2.3 mg/dL (0.55-1.3)
[2023-04-10 11:43] LABS: BILIRUBIN,TOTAL 0.4 mg/dL (0.2-1); TOT PROT 7.2 g/dl (6.4-8.2)
[2023-04-10 11:46] LABS: ALBUMIN 2.1 g/dl (3.4-5.0); BLOOD UREA NITROGEN 34.5 mg/dL (7-18)
[2023-04-10 12:17] LABS: ANISOCYTOSIS 0; HELMET CELLS 0; HOWELL-JOLLY BODIES 0; MACROCYTOSIS 0; OVALOCYTE 0; ROULEAU 0; SICKELED CELLS 0; TARGET CELLS 0; TEAR DROP CELLS 0; TOXIC GRANULATION 0
[2023-04-10] MEDS ORDERED: SODIUM CHLORIDE 250 ML IV PRN (16:52)
[2023-04-10] MEDS: ATORVASTATIN CA 40 MG TABLET (FP) PEG SCH (23:07)
[2023-04-10] MEDS: ACETAMINOPHEN 650 MG/20.3 ML ORAL SOLUTION (CUPS) GT PRN (23:56)
[2023-04-11] MEDS: HEPARIN NA (PORCINE) 5,000 UNITS/ML 1ML VIAL SQ SCH ×4 (00:04→21:07)
[2023-04-11] MEDS: ACETAMINOPHEN 650 MG/20.3 ML ORAL SOLUTION (CUPS) GT PRN ×2 (05:44→17:03)
[2023-04-11] MEDS ORDERED: EPOETIN ALFA-EPBX 10,000 UNIT/ML VIAL IVPUSH ONE (07:45)
[2023-04-11] MEDS: ALBUMIN HUMAN 25% 12.5 GM/50 ML VIAL IV SCH ×4 (08:15→11:04)
[2023-04-11 08:43] LABS: BASO % 0.7 % (0-2.0); EOS % 3.3 % (0-4.5); HEMATOCRIT 21.9 % (32.4-45.2); HEMOGLOBIN 7.3 GM/dL (10.7-15.3); LYMPH % 10.9 % (8-40); MCH 30.9 pg (25.7-33.7); MCHC 33.2 g/dl (32.0-36.0); MEAN CELL VOLUME 93.2 fl (80-96); MEAN PLT VOLUME 7.7 fl (7.5-11.1); MONO % 12.5 % (3.8-10.2); NEUT % 72.6 % (42.8-82.8); PLATELET COUNT 363 10^3/uL (134-434); RBC 2.35 M/mm3 (3.60-5.2); RDW 17.7 % (11.6-15.6); WHITE BLOOD COUNT 8.2 K/mm3 (4.0-10.0)
[2023-04-11 09:02] LABS: POTASSIUM 3.7 mmol/L (3.5-5.1)
[2023-04-11 09:21] LABS: CALCIUM 9.6 mg/dL (8.5-10.1)
[2023-04-11 09:22] LABS: ALBUMIN 2.1 g/dl (3.4-5.0); BLOOD UREA NITROGEN 45.6 mg/dL (7-18)
[2023-04-11 09:26] LABS: BILIRUBIN,TOTAL 0.2 mg/dL (0.2-1); TOT PROT 7.1 g/dl (6.4-8.2)
[2023-04-11] MEDS: ASPIRIN 81 MG CHEWABLE TABLETS PEG SCH (12:12)
[2023-04-11] MEDS: levETIRAcetam 500 MG/5 ML ORAL SOLUTION (UNIT-DOSE CUPS) PEG SCH ×2 (12:12→21:07)
[2023-04-11] MEDS: FAMOTIDINE 20 MG/2.5 ML ORAL LIQUID PEG SCH (12:12)
[2023-04-11] MEDS: MIDODRINE HCL 5 MG TABLET PEG SCH ×3 (12:13→17:06)
[2023-04-11] MEDS: ATORVASTATIN CA 40 MG TABLET (FP) PEG SCH (21:07)
[2023-04-12] MEDS: HEPARIN NA (PORCINE) 5,000 UNITS/ML 1ML VIAL SQ SCH ×3 (05:33→21:50)
[2023-04-12] MEDS ORDERED: EPOETIN ALFA-EPBX 10,000 UNIT/ML VIAL IVPUSH ONE (09:00)
[2023-04-12] MEDS: ASPIRIN 81 MG CHEWABLE TABLETS PEG SCH (10:46)
[2023-04-12] MEDS: MIDODRINE HCL 5 MG TABLET PEG SCH ×3 (10:46→17:58)
[2023-04-12] MEDS: FAMOTIDINE 20 MG/2.5 ML ORAL LIQUID PEG SCH (10:47)
[2023-04-12] MEDS: levETIRAcetam 500 MG/5 ML ORAL SOLUTION (UNIT-DOSE CUPS) PEG SCH ×2 (10:47→21:49)
[2023-04-12] MEDS: ATORVASTATIN CA 40 MG TABLET (FP) PEG SCH (21:50)
[2023-04-13] MEDS: HEPARIN NA (PORCINE) 5,000 UNITS/ML 1ML VIAL SQ SCH ×3 (05:21→22:00)
[2023-04-13] MEDS ORDERED: SODIUM CHLORIDE 250 ML IV PRN (07:22)
[2023-04-13] MEDS: ALBUMIN HUMAN 25% 12.5 GM/50 ML VIAL IV SCH ×4 (09:24→10:55)
[2023-04-13] MEDS: ACETAMINOPHEN 650 MG/20.3 ML ORAL SOLUTION (CUPS) GT PRN (09:31)
[2023-04-13] MEDS: MIDODRINE HCL 5 MG TABLET PEG SCH ×3 (09:31→18:41)
[2023-04-13 09:45] LABS: BASO % 0.7 % (0-2.0); EOS % 2.7 % (0-4.5); HEMATOCRIT 24.7 % (32.4-45.2); HEMOGLOBIN 7.8 GM/dL (10.7-15.3); LYMPH % 13.3 % (8-40); MCHC 31.4 g/dl (32.0-36.0); MEAN CELL VOLUME 95.6 fl (80-96); MONO % 11.9 % (3.8-10.2); NEUT % 71.4 % (42.8-82.8); PLATELET COUNT 387 10^3/uL (134-434); RBC 2.59 M/mm3 (3.60-5.2); RDW 17.8 % (11.6-15.6); WHITE BLOOD COUNT 9.1 K/mm3 (4.0-10.0)
[2023-04-13 10:26] LABS: POTASSIUM 3.9 mmol/L (3.5-5.1)
[2023-04-13 10:40] LABS: CALCIUM 9.5 mg/dL (8.5-10.1)
[2023-04-13 10:41] LABS: ALBUMIN 2.1 g/dl (3.4-5.0); BLOOD UREA NITROGEN 46.6 mg/dL (7-18)
[2023-04-13 10:44] LABS: CREATININE 2.9 mg/dL (0.55-1.3)
[2023-04-13 10:45] LABS: TOT PROT 7.3 g/dl (6.4-8.2)
[2023-04-13 10:46] LABS: BILIRUBIN,TOTAL 0.4 mg/dL (0.2-1)
[2023-04-13] MEDS: levETIRAcetam 500 MG/5 ML ORAL SOLUTION (UNIT-DOSE CUPS) PEG SCH ×2 (13:03→22:01)
[2023-04-13] MEDS: ASPIRIN 81 MG CHEWABLE TABLETS PEG SCH (13:03)
[2023-04-13] MEDS: FAMOTIDINE 20 MG/2.5 ML ORAL LIQUID PEG SCH (13:03)
[2023-04-13] MEDS: ATORVASTATIN CA 40 MG TABLET (FP) PEG SCH (22:00)
[2023-04-14] MEDS: HEPARIN NA (PORCINE) 5,000 UNITS/ML 1ML VIAL SQ SCH ×3 (05:26→22:13)
[2023-04-14] MEDS: ACETAMINOPHEN 650 MG/20.3 ML ORAL SOLUTION (CUPS) GT PRN ×2 (10:16→17:08)
[2023-04-14] MEDS: FAMOTIDINE 20 MG/2.5 ML ORAL LIQUID PEG SCH (10:16)
[2023-04-14] MEDS: levETIRAcetam 500 MG/5 ML ORAL SOLUTION (UNIT-DOSE CUPS) PEG SCH ×2 (10:16→22:13)
[2023-04-14] MEDS: ASPIRIN 81 MG CHEWABLE TABLETS PEG SCH (10:16)
[2023-04-14] MEDS: MIDODRINE HCL 5 MG TABLET PEG SCH ×3 (10:17→17:08)
[2023-04-14] MEDS: ATORVASTATIN CA 40 MG TABLET (FP) PEG SCH (22:13)
[2023-04-15] MEDS: HEPARIN NA (PORCINE) 5,000 UNITS/ML 1ML VIAL SQ SCH ×2 (06:04→21:09)
[2023-04-15] MEDS: levETIRAcetam 500 MG/5 ML ORAL SOLUTION (UNIT-DOSE CUPS) PEG SCH ×2 (10:28→21:09)
[2023-04-15] MEDS: MIDODRINE HCL 5 MG TABLET PEG SCH ×3 (10:28→18:37)
[2023-04-15] MEDS: FAMOTIDINE 20 MG/2.5 ML ORAL LIQUID PEG SCH (10:29)
[2023-04-15] MEDS: ASPIRIN 81 MG CHEWABLE TABLETS PEG SCH (10:29)
[2023-04-15] MEDS ORDERED: SODIUM CHLORIDE 250 ML IV PRN (13:41)
[2023-04-15] MEDS: ATORVASTATIN CA 40 MG TABLET (FP) PEG SCH (21:09)
[2023-04-16] MEDS: HEPARIN NA (PORCINE) 5,000 UNITS/ML 1ML VIAL SQ SCH ×3 (06:57→22:10)
[2023-04-16 09:30] LABS: BASO % 0.4 % (0-2.0); EOS % 2.1 % (0-4.5); HEMATOCRIT 25.8 % (32.4-45.2); HEMOGLOBIN 8.2 GM/dL (10.7-15.3); LYMPH % 6.8 % (8-40); MCH 30.3 pg (25.7-33.7); MCHC 31.6 g/dl (32.0-36.0); MEAN CELL VOLUME 95.9 fl (80-96); MEAN PLT VOLUME 8.3 fl (7.5-11.1); MONO % 10.8 % (3.8-10.2); NEUT % 79.9 % (42.8-82.8); PLATELET COUNT 359 10^3/uL (134-434); RBC 2.69 M/mm3 (3.60-5.2); RDW 18.2 % (11.6-15.6); WHITE BLOOD COUNT 9.8 K/mm3 (4.0-10.0)
[2023-04-16] MEDS ORDERED: EPOETIN ALFA-EPBX 10,000 UNIT/ML VIAL SQ ONE (09:30)
[2023-04-16 10:02] LABS: POTASSIUM 3.4 mmol/L (3.5-5.1)
[2023-04-16 10:24] LABS: CALCIUM 9.9 mg/dL (8.5-10.1)
[2023-04-16 10:25] LABS: ALBUMIN 2.5 g/dl (3.4-5.0); BLOOD UREA NITROGEN 56.3 mg/dL (7-18); MAGNESIUM 2.5 mg/dL (1.8-2.4)
[2023-04-16 10:28] LABS: PHOSPHOROUS 4.2 mg/dL (2.5-4.9)
[2023-04-16 10:29] LABS: TOT PROT 7.5 g/dl (6.4-8.2)
[2023-04-16 10:30] LABS: BILIRUBIN,TOTAL 0.3 mg/dL (0.2-1)
[2023-04-16] MEDS: MIDODRINE HCL 5 MG TABLET PEG SCH ×3 (12:39→18:33)
[2023-04-16] MEDS: levETIRAcetam 500 MG/5 ML ORAL SOLUTION (UNIT-DOSE CUPS) PEG SCH ×2 (12:39→22:09)
[2023-04-16] MEDS: FAMOTIDINE 20 MG/2.5 ML ORAL LIQUID PEG SCH (12:40)
[2023-04-16] MEDS: ASPIRIN 81 MG CHEWABLE TABLETS PEG SCH (12:40)
[2023-04-16] MEDS: ATORVASTATIN CA 40 MG TABLET (FP) PEG SCH (22:09)
[2023-04-17] MEDS: HEPARIN NA (PORCINE) 5,000 UNITS/ML 1ML VIAL SQ SCH ×3 (05:03→21:14)
[2023-04-17] MEDS: ASPIRIN 81 MG CHEWABLE TABLETS PEG SCH (10:18)
[2023-04-17] MEDS: FAMOTIDINE 20 MG/2.5 ML ORAL LIQUID PEG SCH (10:18)
[2023-04-17] MEDS: levETIRAcetam 500 MG/5 ML ORAL SOLUTION (UNIT-DOSE CUPS) PEG SCH ×2 (10:18→21:14)
[2023-04-17] MEDS: MIDODRINE HCL 5 MG TABLET PEG SCH ×3 (10:19→17:36)
[2023-04-17 12:52] LABS: BASO % 0.5 % (0-2.0); EOS % 2.2 % (0-4.5); HEMATOCRIT 26.3 % (32.4-45.2); HEMOGLOBIN 8.4 GM/dL (10.7-15.3); MCH 30.3 pg (25.7-33.7); MEAN CELL VOLUME 94.7 fl (80-96); MONO % 14.7 % (3.8-10.2); NEUT % 71.6 % (42.8-82.8); PLATELET COUNT 329 10^3/uL (134-434); RBC 2.77 M/mm3 (3.60-5.2); RDW 18.1 % (11.6-15.6); WHITE BLOOD COUNT 6.9 K/mm3 (4.0-10.0)
[2023-04-17] MEDS: ACETAMINOPHEN 650 MG/20.3 ML ORAL SOLUTION (CUPS) GT PRN (13:04)
[2023-04-17 13:21] LABS: POTASSIUM 3.3 mmol/L (3.5-5.1)
[2023-04-17 13:23] LABS: ALBUMIN 2.5 g/dl (3.4-5.0); BLOOD UREA NITROGEN 35.6 mg/dL (7-18); CALCIUM 9.4 mg/dL (8.5-10.1); MAGNESIUM 2.2 mg/dL (1.8-2.4)
[2023-04-17 13:26] LABS: CREATININE 2.7 mg/dL (0.55-1.3)
[2023-04-17 13:28] LABS: BILIRUBIN,TOTAL 0.3 mg/dL (0.2-1); TOT PROT 7.6 g/dl (6.4-8.2)
[2023-04-17] MEDS: ATORVASTATIN CA 40 MG TABLET (FP) PEG SCH (21:14)
[2023-04-18] MEDS: HEPARIN NA (PORCINE) 5,000 UNITS/ML 1ML VIAL SQ SCH ×3 (05:50→21:48)
[2023-04-18] MEDS ORDERED: SODIUM CHLORIDE 250 ML IV PRN (07:37)
[2023-04-18] MEDS ORDERED: EPOETIN ALFA-EPBX 10,000 UNIT/ML VIAL SQ ONE (09:00)
[2023-04-18] MEDS: ALBUMIN HUMAN 25% 12.5 GM/50 ML VIAL IV SCH ×3 (11:17→12:23)
[2023-04-18] MEDS: levETIRAcetam 500 MG/5 ML ORAL SOLUTION (UNIT-DOSE CUPS) PEG SCH ×2 (12:13→21:47)
[2023-04-18] MEDS: ASPIRIN 81 MG CHEWABLE TABLETS PEG SCH (12:13)
[2023-04-18] MEDS: MIDODRINE HCL 5 MG TABLET PEG SCH ×3 (12:14→17:23)
[2023-04-18] MEDS: FAMOTIDINE 20 MG/2.5 ML ORAL LIQUID PEG SCH (12:14)
[2023-04-18] MEDS ORDERED: POTASSIUM CHLORIDE ORAL LIQUID 20 MEQ/15 ML GT ONE (17:25)
[2023-04-18] MEDS: ATORVASTATIN CA 40 MG TABLET (FP) PEG SCH (21:48)
[2023-04-19] MEDS: HEPARIN NA (PORCINE) 5,000 UNITS/ML 1ML VIAL SQ SCH ×3 (06:09→21:32)
[2023-04-19] MEDS: levETIRAcetam 500 MG/5 ML ORAL SOLUTION (UNIT-DOSE CUPS) PEG SCH ×2 (10:47→21:32)
[2023-04-19] MEDS: ASPIRIN 81 MG CHEWABLE TABLETS PEG SCH (10:47)
[2023-04-19] MEDS: FAMOTIDINE 20 MG/2.5 ML ORAL LIQUID PEG SCH (10:47)
[2023-04-19] MEDS: MIDODRINE HCL 5 MG TABLET PEG SCH ×4 (10:47→17:53)
[2023-04-19] MEDS ORDERED: SODIUM CHLORIDE 250 ML IV PRN (11:46)
[2023-04-19 12:06] LABS: BASO % 0.7 % (0-2.0); EOS % 1.6 % (0-4.5); HEMATOCRIT 26.1 % (32.4-45.2); HEMOGLOBIN 7.9 GM/dL (10.7-15.3); LYMPH % 11.1 % (8-40); MCH 29.2 pg (25.7-33.7); MCHC 30.4 g/dl (32.0-36.0); MEAN CELL VOLUME 96.1 fl (80-96); MEAN PLT VOLUME 8.6 fl (7.5-11.1); MONO % 12.7 % (3.8-10.2); NEUT % 73.9 % (42.8-82.8); PLATELET COUNT 295 10^3/uL (134-434); RBC 2.72 M/mm3 (3.60-5.2); RDW 17.5 % (11.6-15.6); WHITE BLOOD COUNT 7.6 K/mm3 (4.0-10.0)
[2023-04-19 12:43] LABS: ALBUMIN 2.4 g/dl (3.4-5.0)
[2023-04-19 12:45] LABS: BLOOD UREA NITROGEN 33.3 mg/dL (7-18)
[2023-04-19 12:46] LABS: CALCIUM 9.9 mg/dL (8.5-10.1)
[2023-04-19 12:47] LABS: MAGNESIUM 2.4 mg/dL (1.8-2.4); TOT PROT 7.2 g/dl (6.4-8.2)
[2023-04-19 12:48] LABS: CREATININE 2.3 mg/dL (0.55-1.3); PHOSPHOROUS 2.4 mg/dL (2.5-4.9)
[2023-04-19 12:53] LABS: BILIRUBIN,TOTAL 0.7 mg/dL (0.2-1)
[2023-04-19] MEDS ORDERED: NAPH,MB-DB/K PH,MBDB POWDER PACKET GT ONE (17:18)
[2023-04-19] MEDS: ATORVASTATIN CA 40 MG TABLET (FP) PEG SCH (21:32)
[2023-04-20] MEDS: HEPARIN NA (PORCINE) 5,000 UNITS/ML 1ML VIAL SQ SCH ×3 (06:28→22:24)
[2023-04-20 09:12] LABS: BASO % 0.7 % (0-2.0); EOS % 1.3 % (0-4.5); LYMPH % 7.7 % (8-40); MCH 30.2 pg (25.7-33.7); MCHC 32.2 g/dl (32.0-36.0); MEAN CELL VOLUME 93.9 fl (80-96); MEAN PLT VOLUME 8.6 fl (7.5-11.1); MONO % 13.7 % (3.8-10.2); NEUT % 76.6 % (42.8-82.8); PLATELET COUNT 304 10^3/uL (134-434); RBC 2.66 M/mm3 (3.60-5.2); RDW 17.7 % (11.6-15.6); WHITE BLOOD COUNT 7.5 K/mm3 (4.0-10.0)
[2023-04-20] MEDS ORDERED: EPOETIN ALFA-EPBX 10,000 UNIT/ML VIAL SQ ONE (09:15)
[2023-04-20 09:30] LABS: POTASSIUM 3.7 mmol/L (3.5-5.1)
[2023-04-20 09:32] LABS: CALCIUM 9.7 mg/dL (8.5-10.1)
[2023-04-20 09:33] LABS: MAGNESIUM 2.4 mg/dL (1.8-2.4)
[2023-04-20 09:34] LABS: ALBUMIN 2.3 g/dl (3.4-5.0); BLOOD UREA NITROGEN 54.5 mg/dL (7-18)
[2023-04-20 09:37] LABS: CREATININE 3.3 mg/dL (0.55-1.3); TOT PROT 7.3 g/dl (6.4-8.2)
[2023-04-20 09:38] LABS: BILIRUBIN,TOTAL 0.3 mg/dL (0.2-1)
[2023-04-20] MEDS: levETIRAcetam 500 MG/5 ML ORAL SOLUTION (UNIT-DOSE CUPS) PEG SCH ×2 (10:41→22:24)
[2023-04-20] MEDS: FAMOTIDINE 20 MG/2.5 ML ORAL LIQUID PEG SCH (10:41)
[2023-04-20] MEDS: MIDODRINE HCL 5 MG TABLET PEG SCH ×3 (10:41→17:59)
[2023-04-20] MEDS: ASPIRIN 81 MG CHEWABLE TABLETS PEG SCH (10:41)
[2023-04-20] MEDS: ACETAMINOPHEN 650 MG/20.3 ML ORAL SOLUTION (CUPS) GT PRN (22:23)
[2023-04-20] MEDS: ATORVASTATIN CA 40 MG TABLET (FP) PEG SCH (22:24)
[2023-04-21] MEDS: HEPARIN NA (PORCINE) 5,000 UNITS/ML 1ML VIAL SQ SCH ×3 (06:37→22:50)
[2023-04-21] MEDS: MIDODRINE HCL 5 MG TABLET PEG SCH ×4 (09:44→17:34)
[2023-04-21] MEDS: FAMOTIDINE 20 MG/2.5 ML ORAL LIQUID PEG SCH (09:44)
[2023-04-21] MEDS: levETIRAcetam 500 MG/5 ML ORAL SOLUTION (UNIT-DOSE CUPS) PEG SCH ×2 (09:44→22:50)
[2023-04-21] MEDS: ASPIRIN 81 MG CHEWABLE TABLETS PEG SCH (09:44)
[2023-04-21] MEDS: ATORVASTATIN CA 40 MG TABLET (FP) PEG SCH (22:51)
[2023-04-22] MEDS: HEPARIN NA (PORCINE) 5,000 UNITS/ML 1ML VIAL SQ SCH ×2 (06:06→14:43)
[2023-04-22] MEDS: MIDODRINE HCL 5 MG TABLET PEG SCH ×3 (10:03→18:14)
[2023-04-22] MEDS: levETIRAcetam 500 MG/5 ML ORAL SOLUTION (UNIT-DOSE CUPS) PEG SCH ×2 (10:03→22:40)
[2023-04-22] MEDS: ASPIRIN 81 MG CHEWABLE TABLETS PEG SCH (10:03)
[2023-04-22] MEDS: FAMOTIDINE 20 MG/2.5 ML ORAL LIQUID PEG SCH (10:03)
[2023-04-22] MEDS: ACETAMINOPHEN 650 MG/20.3 ML ORAL SOLUTION (CUPS) GT PRN (15:11)
[2023-04-22] MEDS: ATORVASTATIN CA 40 MG TABLET (FP) PEG SCH (22:40)
[2023-04-23 05:11] VITALS: TEMP 98.2
[2023-04-23] MEDS ORDERED: SODIUM CHLORIDE 250 ML IV PRN (07:27)
[2023-04-23] MEDS ORDERED: EPOETIN ALFA-EPBX 10,000 UNIT/ML VIAL SQ ONE (08:00)
[2023-04-23] MEDS ORDERED: AMINO ACIDS/PROTEIN HYDROLYS 30 ML LIQUID.PKT GT SCH (08:00)
[2023-04-23] MEDS: ASPIRIN 81 MG CHEWABLE TABLETS PEG SCH (12:21)
[2023-04-23] MEDS: FAMOTIDINE 20 MG/2.5 ML ORAL LIQUID PEG SCH (12:21)
[2023-04-23] MEDS: MIDODRINE HCL 5 MG TABLET PEG SCH ×3 (12:21→17:48)
[2023-04-23] MEDS: levETIRAcetam 500 MG/5 ML ORAL SOLUTION (UNIT-DOSE CUPS) PEG SCH (12:21)
[2023-04-23 15:00] VITALS: BP 192/85; PULSE 78
[2023-04-23 15:12] VITALS: RESP 26
== END 2023-04-23 17:49 | DRG 207 ==
LOC: JER 07:57 → JERBED 08:25 → JICU 10:36 → J5S 04-01 20:44
PROVIDERS: ADMIT Internal Medicine Pulmonary Disease; ATTEND Internal Medicine
PROC: 5A1955Z Respiratory Ventilation, Greater than 96 Consecutive Hours (ICD-10-PCS; principal; 2023-03-29)
PROC: 05HF33Z Insertion of Infusion Device into Left Cephalic Vein, Percutaneous Approach (ICD-10-PCS; 2023-03-30)
PROC: B54NZZA Ultrasonography of Left Upper Extremity Veins, Guidance (ICD-10-PCS; 2023-03-30)
PROC: 5A1D70Z Performance of Urinary Filtration, Intermittent, Less than 6 Hours Per Day (ICD-10-PCS; 2023-03-30)
DX: J95.09 Other tracheostomy complication (principal); I21.4 Non-ST elevation (NSTEMI) myocardial infarction; I46.9 Cardiac arrest, cause unspecified; R53.2 Functional quadriplegia; J96.21 Acute and chronic respiratory failure with hypoxia; N18.6 End stage renal disease; Z99.11 Dependence on respirator [ventilator] status; E87.20 Acidosis, unspecified; E87.1 Hypo-osmolality and hyponatremia; G40.909 Epilepsy, unspecified, not intractable, without status epilepticus; E03.9 Hypothyroidism, unspecified; I48.0 Paroxysmal atrial fibrillation; I25.10 Atherosclerotic heart disease of native coronary artery without angina pectoris; Z93.1 Gastrostomy status; F03.90 Unspecified dementia, unspecified severity, without behavioral disturbance, psychotic disturbance, mood disturbance, and anxiety; E87.6 Hypokalemia; D64.9 Anemia, unspecified; I25.2 Old myocardial infarction; I95.3 Hypotension of hemodialysis; Y83.8 Other surgical procedures as the cause of abnormal reaction of the patient, or of later complication, without mention of misadventure at the time of the procedure; K80.20 Calculus of gallbladder without cholecystitis without obstruction
CPT/HCPCS: 0241U-QW; 36415; 70450-TC; 71045-TC-FY; 71275-TC; 74177-TC; 76705-TC; 80053; 82550; 82553; 82803; 82962; 83605; 83735; 84100; 84439; 84443; 84484; 85025; 85027; 85610; 85730; 86803; 86850; 86900; 86901; 87040; 87070; 87186; 87205; 87340; 87635; 93005; 93010; 93306-TC; 94002; 97116-GP; 97162-GP; 99291; J1644; P9047; Q5106; Q9967

== ENCOUNTER 2023-04-30 19:15 | Inpatient (IN) | payer OTHER ==
[2023-04-30 19:59] VITALS: BMI 32.3
[2023-04-30] MEDS ORDERED: ACETAMINOPHEN 1000 MG/100 ML BAG IVPB ONE (20:09)
[2023-04-30] MEDS ORDERED: PIPERACILLIN/TAZOB 4.5 GM 4.5 GM in DEXTROSE 5%-WATER 100 ML IVPB ONE (20:09)
[2023-04-30] MEDS ORDERED: VANCOMYCIN 1,000 MG in DEXTROSE 5%-WATER - 250 ML IVPB ONE (20:09)
[2023-04-30] MEDS ORDERED: LACTATED RINGERS SOLUTION 1000 ML INFUS.BAG IV ONE (20:09)
[2023-04-30] MEDS ORDERED: ACETAMINOPHEN INJECTION 100 ML IVPB ONE (20:55)
[2023-04-30] MEDS ORDERED: VANCOMYCIN 1 GRAM (PRE-DOCKED) 1,000 MG/250 ML BAG IVPB ONE (20:56)
[2023-04-30] MEDS ORDERED: PIPERACILLIN/TAZOB 4.5 GM 4.5 GM/100 ML BAG IVPB ONE (20:56)
[2023-04-30 21:03] LABS: VENOUS BASE EXCESS 0.6 mmol/L (-2-2); VENOUS O2 SATURATION 71.1 % (70-80); VENOUS PCO2 53.6 mmHg (38-52); VENOUS PH 7.325 (7.310-7.410)
[2023-04-30 21:13] LABS: BASO % 0.2 % (0-2.0); EOS % 0.1 % (0-4.5); HEMATOCRIT 30.7 % (32.4-45.2); HEMOGLOBIN 9.8 GM/dL (10.7-15.3); LYMPH % 2.6 % (8-40); MCH 29.2 pg (25.7-33.7); MCHC 31.8 g/dl (32.0-36.0); MEAN CELL VOLUME 91.7 fl (80-96); MEAN PLT VOLUME 8.2 fl (7.5-11.1); NEUT % 81.1 % (42.8-82.8); PLATELET COUNT 478 10^3/uL (134-434); RBC 3.35 M/mm3 (3.60-5.2); RDW 17.1 % (11.6-15.6)
[2023-04-30 21:26] LABS: INR 1.28 (0.83-1.09); PROTHROMBIN TIME (PATIENT) 14.8 SEC (9.7-13.0)
[2023-04-30 21:29] LABS: ACTIVATED PTT 30.6 SECONDS (25.2-36.5)
[2023-04-30 21:44] LABS: POTASSIUM 3.9 mmol/L (3.5-5.1)
[2023-04-30 21:46] LABS: CALCIUM 10.2 mg/dL (8.5-10.1)
[2023-04-30 21:47] LABS: ALBUMIN 2.4 g/dl (3.4-5.0); MAGNESIUM 2.7 mg/dL (1.8-2.4)
[2023-04-30 21:50] LABS: CREATININE 3.6 mg/dL (0.55-1.3); PHOSPHOROUS 4.7 mg/dL (2.5-4.9)
[2023-04-30 21:51] LABS: TOT PROT 8.9 g/dl (6.4-8.2)
[2023-04-30 21:52] LABS: BILIRUBIN,TOTAL 0.4 mg/dL (0.2-1)
[2023-04-30 21:57] LABS: BLOOD UREA NITROGEN 89.5 mg/dL (7-18)
[2023-05-01] MEDS ORDERED: guaiFENesin 200 MG/10 ML 10 ML UNIT-DOSE CUPS GT PRN (03:50)
[2023-05-01] MEDS ORDERED: MIDODRINE HCL 5 MG TABLET GT PRN (03:50)
[2023-05-01] MEDS ORDERED: BISACODYL 10 MG SUPP.RECT RC PRN (03:50)
[2023-05-01 06:43] LABS: BASO % 0.5 % (0-2.0); EOS % 0.4 % (0-4.5); HEMOGLOBIN 8.2 GM/dL (10.7-15.3); LYMPH % 5.4 % (8-40); MCH 29.5 pg (25.7-33.7); MCHC 31.4 g/dl (32.0-36.0); MEAN CELL VOLUME 93.7 fl (80-96); MEAN PLT VOLUME 7.9 fl (7.5-11.1); MONO % 18.8 % (3.8-10.2); NEUT % 74.9 % (42.8-82.8); PLATELET COUNT 404 10^3/uL (134-434); RBC 2.77 M/mm3 (3.60-5.2); RDW 17.2 % (11.6-15.6); WHITE BLOOD COUNT 13.3 K/mm3 (4.0-10.0)
[2023-05-01 06:53] LABS: CALCIUM 9.9 mg/dL (8.5-10.1)
[2023-05-01 06:54] LABS: ALBUMIN 2.2 g/dl (3.4-5.0)
[2023-05-01 06:57] LABS: CREATININE 3.9 mg/dL (0.55-1.3)
[2023-05-01 06:59] LABS: BILIRUBIN,TOTAL 0.6 mg/dL (0.2-1); TOT PROT 7.7 g/dl (6.4-8.2)
[2023-05-01] MEDS ORDERED: ALBUTEROL SO4 2.5/IPRATROPIUM 0.5 INH SOL 3 ML VIAL.NEB. NEB ONE (08:00)
[2023-05-01] MEDS: ALBUTEROL SO4 2.5/IPRATROPIUM 0.5 INH SOL 3 ML VIAL.NEB. NEB SCH ×3 (08:17→15:15)
[2023-05-01] MEDS ORDERED: PIPERACILLIN/TAZOB 2.25 GM 2.25 GM/50 ML BAG IVPB ONE (08:37)
[2023-05-01] MEDS ORDERED: PIPERACILLIN/TAZOB 2.25 GM 2.25 GM in DEXTROSE 5%-WATER - 50 ML IVPB SCH (09:00)
[2023-05-01] MEDS: HEPARIN NA (PORCINE) 5,000 UNITS/ML 1ML VIAL SQ SCH ×2 (10:15→21:00)
[2023-05-01] MEDS: ASPIRIN 81 MG CHEWABLE TABLETS GT SCH (10:15)
[2023-05-01] MEDS: LACTOBACILLUS ACIDOPHILUS 1 TABLET GT SCH (10:15)
[2023-05-01] MEDS: levETIRAcetam 500 MG/5 ML ORAL SOLUTION (UNIT-DOSE CUPS) GT SCH ×2 (10:16→21:01)
[2023-05-01] MEDS ORDERED: SODIUM CHLORIDE 250 ML IV PRN (13:55)
[2023-05-01] MEDS ORDERED: EPOETIN ALFA-EPBX 10,000 UNIT/ML VIAL SQ ONE (14:00)
[2023-05-01] MEDS: ALBUMIN HUMAN 25% 12.5 GM/50 ML VIAL IV SCH ×5 (14:30→17:07)
[2023-05-01 15:29] LABS: IRON SERUM 19 ug/dL (50-175); TOTAL IRON BINDING CAPACITY 90 ug/dL (250-450)
[2023-05-01] MEDS: PIPERACILLIN/TAZOB 2.25 GM 2.25 GM in DEXTROSE 5%-WATER - 50 ML IVPB SCH (18:44)
[2023-05-01] MEDS ORDERED: ALBUTEROL SO4 0.083% IH SOL 2.5 MG/3 ML VIAL.NEB. NEB PRN (19:31)
[2023-05-01] MEDS ORDERED: VANCOMYCIN 1 GRAM (PRE-DOCKED) 1,000 MG/250 ML BAG IVPB SCH (21:00)
[2023-05-01] MEDS: ATORVASTATIN CA 40 MG TABLET (FP) GT SCH (21:01)
[2023-05-02] MEDS: ALBUTEROL SO4 2.5/IPRATROPIUM 0.5 INH SOL 3 ML VIAL.NEB. NEB SCH ×4 (00:30→21:10)
[2023-05-02] MEDS: PIPERACILLIN/TAZOB 2.25 GM 2.25 GM in DEXTROSE 5%-WATER - 50 ML IVPB SCH ×3 (01:08→17:27)
[2023-05-02] MEDS ORDERED: PIPERACILLIN/TAZOB 2.25 GM 2.25 GM in DEXTROSE 5%-WATER - 50 ML IVPB SCH (09:00)
[2023-05-02] MEDS: levETIRAcetam 500 MG/5 ML ORAL SOLUTION (UNIT-DOSE CUPS) GT SCH ×2 (09:40→21:00)
[2023-05-02] MEDS: HEPARIN NA (PORCINE) 5,000 UNITS/ML 1ML VIAL SQ SCH ×2 (09:41→21:00)
[2023-05-02] MEDS: ASPIRIN 81 MG CHEWABLE TABLETS GT SCH (09:41)
[2023-05-02] MEDS: LACTOBACILLUS ACIDOPHILUS 1 TABLET GT SCH (09:41)
[2023-05-02] MEDS ORDERED: VANCOMYCIN 1,000 MG in DEXTROSE 5%-WATER - 250 ML IVPB ONE (10:00)
[2023-05-02] MEDS ORDERED: VANCOMYCIN/WATER FOR INJ (PEG) 1,000 MG/200 ML BAG IVPB ONE (10:00)
[2023-05-02] MEDS ORDERED: PNEUMOC 20-VAL CONJ-DIP CRM/PF 0.5 ML SYRINGE IM ONE (12:00)
[2023-05-02 12:04] LABS: POTASSIUM 3.4 mmol/L (3.5-5.1)
[2023-05-02 12:05] LABS: CALCIUM 10.1 mg/dL (8.5-10.1)
[2023-05-02 12:07] LABS: HEMATOCRIT 28.4 % (32.4-45.2); MCH 29.4 pg (25.7-33.7); MCHC 31.8 g/dl (32.0-36.0); MEAN CELL VOLUME 92.5 fl (80-96); MEAN PLT VOLUME 7.7 fl (7.5-11.1); PLATELET COUNT 386 10^3/uL (134-434); RBC 3.07 M/mm3 (3.60-5.2); RDW 16.5 % (11.6-15.6); WHITE BLOOD COUNT 10.2 K/mm3 (4.0-10.0)
[2023-05-02 12:10] LABS: CREATININE 2.6 mg/dL (0.55-1.3)
[2023-05-02 12:18] LABS: BLOOD UREA NITROGEN 46.8 mg/dL (7-18)
[2023-05-02] MEDS ORDERED: VANCOMYCIN 1 GRAM (PRE-DOCKED) 1,000 MG/250 ML BAG IVPB SCH (21:00)
[2023-05-02] MEDS: ATORVASTATIN CA 40 MG TABLET (FP) GT SCH (21:00)
[2023-05-03] MEDS: PIPERACILLIN/TAZOB 2.25 GM 2.25 GM in DEXTROSE 5%-WATER - 50 ML IVPB SCH ×3 (01:03→17:29)
[2023-05-03] MEDS: ALBUTEROL SO4 2.5/IPRATROPIUM 0.5 INH SOL 3 ML VIAL.NEB. NEB SCH ×3 (06:15→20:43)
[2023-05-03] MEDS ORDERED: SODIUM CHLORIDE 250 ML IV PRN (07:00)
[2023-05-03] MEDS ORDERED: EPOETIN ALFA-EPBX 10,000 UNIT/ML VIAL SQ ONE (08:30)
[2023-05-03 09:26] LABS: HEMATOCRIT 27.3 % (32.4-45.2); HEMOGLOBIN 8.6 GM/dL (10.7-15.3); MCH 28.8 pg (25.7-33.7); MCHC 31.4 g/dl (32.0-36.0); MEAN CELL VOLUME 91.7 fl (80-96); MEAN PLT VOLUME 7.7 fl (7.5-11.1); PLATELET COUNT 454 10^3/uL (134-434); RBC 2.98 M/mm3 (3.60-5.2); RDW 16.5 % (11.6-15.6); WHITE BLOOD COUNT 10.7 K/mm3 (4.0-10.0)
[2023-05-03 09:44] LABS: CHLORIDE 98 mmol/L (98-107); SODIUM 138 mmol/L (136-145)
[2023-05-03 09:58] LABS: CALCIUM 9.6 mg/dL (8.5-10.1)
[2023-05-03 09:59] LABS: BLOOD UREA NITROGEN 63.3 mg/dL (7-18); CO2 27 mmol/L (21-32); GLUCOSE,RANDOM 112 mg/dL (74-106)
[2023-05-03 10:02] LABS: CREATININE 3.5 mg/dL (0.55-1.3)
[2023-05-03 10:16] LABS: ANION GAP 12 mmol/L (4-13); POTASSIUM 2.9 mmol/L (3.5-5.1)
[2023-05-03] MEDS: HEPARIN NA (PORCINE) 5,000 UNITS/ML 1ML VIAL SQ SCH ×2 (11:48→21:37)
[2023-05-03] MEDS: ASPIRIN 81 MG CHEWABLE TABLETS GT SCH (11:49)
[2023-05-03] MEDS: LACTOBACILLUS ACIDOPHILUS 1 TABLET GT SCH (11:49)
[2023-05-03] MEDS: levETIRAcetam 500 MG/5 ML ORAL SOLUTION (UNIT-DOSE CUPS) GT SCH ×2 (11:50→21:37)
[2023-05-03] MEDS: ALBUMIN HUMAN 25% 12.5 GM/50 ML VIAL IV SCH ×3 (12:17→12:18)
[2023-05-03] MEDS ORDERED: POTASSIUM CHLORIDE ORAL LIQUID 20 MEQ/15 ML PO ONE (13:15)
[2023-05-03] MEDS ORDERED: DIGOXIN 0.125 MG TABLET PEG ONE (14:15)
[2023-05-03] MEDS ORDERED: ACETAMINOPHEN 650 MG/20.3 ML ORAL SOLUTION (CUPS) GT PRN (20:00)
[2023-05-03] MEDS: ATORVASTATIN CA 40 MG TABLET (FP) GT SCH (21:37)
[2023-05-04] MEDS: PIPERACILLIN/TAZOB 2.25 GM 2.25 GM in DEXTROSE 5%-WATER - 50 ML IVPB SCH ×3 (01:09→17:13)
[2023-05-04] MEDS: ALBUTEROL SO4 2.5/IPRATROPIUM 0.5 INH SOL 3 ML VIAL.NEB. NEB SCH ×3 (07:47→20:56)
[2023-05-04] MEDS: HEPARIN NA (PORCINE) 5,000 UNITS/ML 1ML VIAL SQ SCH ×2 (10:29→21:07)
[2023-05-04] MEDS: LACTOBACILLUS ACIDOPHILUS 1 TABLET GT SCH (10:29)
[2023-05-04] MEDS: ASPIRIN 81 MG CHEWABLE TABLETS GT SCH (10:29)
[2023-05-04] MEDS: levETIRAcetam 500 MG/5 ML ORAL SOLUTION (UNIT-DOSE CUPS) GT SCH ×2 (10:29→21:07)
[2023-05-04 10:56] LABS: BASO % 0.6 % (0-2.0); EOS % 2.3 % (0-4.5); HEMATOCRIT 25.2 % (32.4-45.2); HEMOGLOBIN 8.1 GM/dL (10.7-15.3); LYMPH % 7.3 % (8-40); MCH 29.4 pg (25.7-33.7); MCHC 32.3 g/dl (32.0-36.0); MEAN CELL VOLUME 91.3 fl (80-96); MEAN PLT VOLUME 7.5 fl (7.5-11.1); MONO % 16.6 % (3.8-10.2); NEUT % 73.2 % (42.8-82.8); PLATELET COUNT 424 10^3/uL (134-434); RBC 2.76 M/mm3 (3.60-5.2); RDW 16.9 % (11.6-15.6); WHITE BLOOD COUNT 9.7 K/mm3 (4.0-10.0)
[2023-05-04 11:14] LABS: POTASSIUM 3.5 mmol/L (3.5-5.1)
[2023-05-04 11:17] LABS: CALCIUM 9.9 mg/dL (8.5-10.1)
[2023-05-04 11:21] LABS: CREATININE 2.7 mg/dL (0.55-1.3)
[2023-05-04 11:22] LABS: BILIRUBIN,TOTAL 0.5 mg/dL (0.2-1); TOT PROT 7.9 g/dl (6.4-8.2)
[2023-05-04 11:26] LABS: ALBUMIN 2.6 g/dl (3.4-5.0)
[2023-05-04] MEDS ORDERED: IRON SUCROSE INJECTION 200 MG in SODIUM CHLORIDE 90 ML IVPB ONE (12:30)
[2023-05-04] MEDS: ATORVASTATIN CA 40 MG TABLET (FP) GT SCH (21:07)
[2023-05-05 06:30] LABS: BASO % 0.4 % (0-2.0); EOS % 2.9 % (0-4.5); HEMATOCRIT 25.4 % (32.4-45.2); LYMPH % 7.1 % (8-40); MCH 29.4 pg (25.7-33.7); MCHC 31.7 g/dl (32.0-36.0); MEAN CELL VOLUME 92.9 fl (80-96); MEAN PLT VOLUME 7.4 fl (7.5-11.1); MONO % 14.4 % (3.8-10.2); NEUT % 75.2 % (42.8-82.8); PLATELET COUNT 455 10^3/uL (134-434); RBC 2.74 M/mm3 (3.60-5.2); RDW 16.9 % (11.6-15.6)
[2023-05-05 06:53] LABS: POTASSIUM 3.6 mmol/L (3.5-5.1)
[2023-05-05 06:59] LABS: CALCIUM 9.8 mg/dL (8.5-10.1)
[2023-05-05 07:00] LABS: ALBUMIN 2.5 g/dl (3.4-5.0); BLOOD UREA NITROGEN 66.8 mg/dL (7-18)
[2023-05-05 07:03] LABS: CREATININE 3.4 mg/dL (0.55-1.3)
[2023-05-05 07:04] LABS: BILIRUBIN,TOTAL 0.4 mg/dL (0.2-1); TOT PROT 7.7 g/dl (6.4-8.2)
[2023-05-05] MEDS: ALBUTEROL SO4 2.5/IPRATROPIUM 0.5 INH SOL 3 ML VIAL.NEB. NEB SCH ×3 (08:13→20:40)
[2023-05-05] MEDS: LIDOCAINE 4% PATCH TP SCH (10:44)
[2023-05-05] MEDS: ASPIRIN 81 MG CHEWABLE TABLETS GT SCH (10:44)
[2023-05-05] MEDS: LACTOBACILLUS ACIDOPHILUS 1 TABLET GT SCH (10:44)
[2023-05-05] MEDS: levETIRAcetam 500 MG/5 ML ORAL SOLUTION (UNIT-DOSE CUPS) GT SCH ×2 (10:44→21:21)
[2023-05-05] MEDS: PIPERACILLIN/TAZOB 2.25 GM 2.25 GM in DEXTROSE 5%-WATER - 50 ML IVPB SCH ×2 (10:45→17:09)
[2023-05-05] MEDS: HEPARIN NA (PORCINE) 5,000 UNITS/ML 1ML VIAL SQ SCH ×2 (10:45→21:21)
[2023-05-05] MEDS: ATORVASTATIN CA 40 MG TABLET (FP) GT SCH (21:21)
[2023-05-05] MEDS: LIDOCAINE PATCH REMOVAL MC SCH (21:21)
[2023-05-06] MEDS: PIPERACILLIN/TAZOB 2.25 GM 2.25 GM in DEXTROSE 5%-WATER - 50 ML IVPB SCH ×4 (01:14→19:04)
[2023-05-06] MEDS ORDERED: SODIUM CHLORIDE 250 ML IV PRN (07:11)
[2023-05-06] MEDS: ALBUTEROL SO4 2.5/IPRATROPIUM 0.5 INH SOL 3 ML VIAL.NEB. NEB SCH ×3 (07:40→20:15)
[2023-05-06] MEDS ORDERED: EPOETIN ALFA-EPBX 10,000 UNIT/ML VIAL IVPUSH ONE (08:00)
[2023-05-06 08:41] LABS: HEMOGLOBIN 8.1 GM/dL (10.7-15.3); MCH 28.6 pg (25.7-33.7); MCHC 31.2 g/dl (32.0-36.0); MEAN CELL VOLUME 91.9 fl (80-96); MEAN PLT VOLUME 7.4 fl (7.5-11.1); PLATELET COUNT 462 10^3/uL (134-434); RBC 2.83 M/mm3 (3.60-5.2); RDW 17.2 % (11.6-15.6); WHITE BLOOD COUNT 13.3 K/mm3 (4.0-10.0)
[2023-05-06] MEDS: ALBUMIN HUMAN 25% 12.5 GM/50 ML VIAL IV SCH ×4 (09:20→11:00)
[2023-05-06 09:21] LABS: POTASSIUM 3.6 mmol/L (3.5-5.1)
[2023-05-06 09:26] LABS: CALCIUM 9.6 mg/dL (8.5-10.1)
[2023-05-06 09:27] LABS: ALBUMIN 2.3 g/dl (3.4-5.0); BLOOD UREA NITROGEN 88.8 mg/dL (7-18)
[2023-05-06 09:30] LABS: CREATININE 4.3 mg/dL (0.55-1.3)
[2023-05-06 09:32] LABS: BILIRUBIN,TOTAL 0.7 mg/dL (0.2-1); TOT PROT 7.7 g/dl (6.4-8.2)
[2023-05-06] MEDS: levETIRAcetam 500 MG/5 ML ORAL SOLUTION (UNIT-DOSE CUPS) GT SCH ×2 (10:19→22:04)
[2023-05-06] MEDS: ASPIRIN 81 MG CHEWABLE TABLETS GT SCH (10:19)
[2023-05-06] MEDS: LIDOCAINE 4% PATCH TP SCH (10:20)
[2023-05-06] MEDS: HEPARIN NA (PORCINE) 5,000 UNITS/ML 1ML VIAL SQ SCH ×2 (10:23→22:04)
[2023-05-06] MEDS: LACTOBACILLUS ACIDOPHILUS 1 TABLET GT SCH (10:23)
[2023-05-06] MEDS ORDERED: VANCOMYCIN/WATER FOR INJ (PEG) 1,000 MG/200 ML BAG IVPB ONE (16:40)
[2023-05-06] MEDS: ATORVASTATIN CA 40 MG TABLET (FP) GT SCH (22:04)
[2023-05-06] MEDS: LIDOCAINE PATCH REMOVAL MC SCH (22:04)
[2023-05-07] MEDS: PIPERACILLIN/TAZOB 2.25 GM 2.25 GM in DEXTROSE 5%-WATER - 50 ML IVPB SCH ×3 (02:44→17:00)
[2023-05-07] MEDS: ALBUTEROL SO4 2.5/IPRATROPIUM 0.5 INH SOL 3 ML VIAL.NEB. NEB SCH ×3 (08:36→20:14)
[2023-05-07] MEDS: LACTOBACILLUS ACIDOPHILUS 1 TABLET GT SCH (09:24)
[2023-05-07] MEDS: ASPIRIN 81 MG CHEWABLE TABLETS GT SCH (09:24)
[2023-05-07] MEDS: HEPARIN NA (PORCINE) 5,000 UNITS/ML 1ML VIAL SQ SCH ×2 (09:24→21:45)
[2023-05-07] MEDS: levETIRAcetam 500 MG/5 ML ORAL SOLUTION (UNIT-DOSE CUPS) GT SCH ×2 (09:24→21:45)
[2023-05-07] MEDS: LIDOCAINE 4% PATCH TP SCH (09:25)
[2023-05-07] MEDS: LIDOCAINE PATCH REMOVAL MC SCH (21:44)
[2023-05-07] MEDS: ATORVASTATIN CA 40 MG TABLET (FP) GT SCH (21:44)
[2023-05-07] MEDS ORDERED: MIDODRINE HCL 5 MG TABLET GT PRN (23:18)
[2023-05-07] MEDS ORDERED: BISACODYL 10 MG SUPP.RECT RC PRN (23:18)
[2023-05-07] MEDS ORDERED: LIDOCAINE PATCH REMOVAL MC SCH (23:18)
[2023-05-07] MEDS ORDERED: guaiFENesin 200 MG/10 ML 10 ML UNIT-DOSE CUPS GT PRN (23:18)
[2023-05-07] MEDS ORDERED: VANCOMYCIN/WATER FOR INJ (PEG) 1,000 MG/200 ML BAG IVPB ONE (23:45)
[2023-05-08] MEDS: PIPERACILLIN/TAZOB 2.25 GM 2.25 GM in DEXTROSE 5%-WATER - 50 ML IVPB SCH ×3 (01:54→18:26)
[2023-05-08] MEDS ORDERED: SODIUM CHLORIDE 250 ML IV PRN (08:41)
[2023-05-08] MEDS ORDERED: EPOETIN ALFA-EPBX 10,000 UNIT/ML VIAL IVPUSH ONE (09:00)
[2023-05-08] MEDS: ALBUMIN HUMAN 25% 12.5 GM/50 ML VIAL IV SCH ×4 (09:10→10:40)
[2023-05-08] MEDS: ALBUTEROL SO4 2.5/IPRATROPIUM 0.5 INH SOL 3 ML VIAL.NEB. NEB SCH ×2 (09:10→14:00)
[2023-05-08 09:35] VITALS: TEMP 98.2
[2023-05-08] MEDS ORDERED: LIDOCAINE 4% PATCH TP SCH (10:00)
[2023-05-08] MEDS ORDERED: levETIRAcetam 500 MG/5 ML ORAL SOLUTION (UNIT-DOSE CUPS) GT SCH (10:00)
[2023-05-08] MEDS ORDERED: ASPIRIN 81 MG CHEWABLE TABLETS GT SCH (10:00)
[2023-05-08] MEDS ORDERED: LACTOBACILLUS ACIDOPHILUS 1 TABLET GT SCH (10:00)
[2023-05-08] MEDS ORDERED: HEPARIN NA (PORCINE) 5,000 UNITS/ML 1ML VIAL SQ SCH (10:00)
[2023-05-08 10:48] LABS: HEMATOCRIT 24.4 % (32.4-45.2); HEMOGLOBIN 7.9 GM/dL (10.7-15.3); MCH 29.4 pg (25.7-33.7); MCHC 32.5 g/dl (32.0-36.0); MEAN CELL VOLUME 90.5 fl (80-96); MEAN PLT VOLUME 7.6 fl (7.5-11.1); PLATELET COUNT 447 10^3/uL (134-434); RDW 17.4 % (11.6-15.6); WHITE BLOOD COUNT 13.1 K/mm3 (4.0-10.0)
[2023-05-08 11:30] LABS: POTASSIUM 3.9 mmol/L (3.5-5.1)
[2023-05-08 11:31] LABS: CALCIUM 9.4 mg/dL (8.5-10.1)
[2023-05-08 11:32] LABS: ALBUMIN 2.1 g/dl (3.4-5.0); BLOOD UREA NITROGEN 76.5 mg/dL (7-18)
[2023-05-08 11:35] LABS: CREATININE 3.7 mg/dL (0.55-1.3)
[2023-05-08 11:37] LABS: BILIRUBIN,TOTAL 0.3 mg/dL (0.2-1); TOT PROT 7.7 g/dl (6.4-8.2)
[2023-05-08 14:18] VITALS: BP 110/67; PULSE 80
[2023-05-08 17:15] VITALS: RESP 22
[2023-05-08] MEDS ORDERED: ATORVASTATIN CA 40 MG TABLET (FP) GT SCH (22:00)
[2023-05-08] MEDS ORDERED: LIDOCAINE PATCH REMOVAL MC SCH (22:00)
== END 2023-05-08 18:02 | DRG 870 ==
LOC: JER 19:15 → JERBED 05-01 03:18 → JICU 05-01 13:48 → J2W 05-02 19:13 → J5S 05-07 20:06
PROVIDERS: ADMIT Family Medicine; ATTEND Family Medicine
PROC: 5A1955Z Respiratory Ventilation, Greater than 96 Consecutive Hours (ICD-10-PCS; principal; 2023-05-01)
PROC: 5A1D70Z Performance of Urinary Filtration, Intermittent, Less than 6 Hours Per Day (ICD-10-PCS; 2023-05-01)
DX: A41.9 Sepsis, unspecified organism (principal); J18.9 Pneumonia, unspecified organism; J96.21 Acute and chronic respiratory failure with hypoxia; R53.2 Functional quadriplegia; N18.6 End stage renal disease; I24.89 Other forms of acute ischemic heart disease; Z99.11 Dependence on respirator [ventilator] status; I12.0 Hypertensive chronic kidney disease with stage 5 chronic kidney disease or end stage renal disease; G40.909 Epilepsy, unspecified, not intractable, without status epilepticus; I25.10 Atherosclerotic heart disease of native coronary artery without angina pectoris; I48.0 Paroxysmal atrial fibrillation; D64.9 Anemia, unspecified; E03.9 Hypothyroidism, unspecified; L89.152 Pressure ulcer of sacral region, stage 2; F03.90 Unspecified dementia, unspecified severity, without behavioral disturbance, psychotic disturbance, mood disturbance, and anxiety; Z93.0 Tracheostomy status; Z86.74 Personal history of sudden cardiac arrest; Z93.1 Gastrostomy status; M25.412 Effusion, left shoulder; Z99.2 Dependence on renal dialysis
CPT/HCPCS: 0241U-QW; 36415; 71045-TC-FY; 73030-TC-LT-FY; 74176-TC; 80048; 80053; 82272; 82803; 83540; 83550; 83605; 83735; 84100; 84484; 85025; 85027; 85610; 85730; 86704; 86803; 86850; 86900; 86901; 87040; 87070; 87186; 87205; 87340; 87517; 87635; 90677; 93005; 93010; 94002; 94640; 99285-25; G0480; J1644; J1756; P9047; Q5106

== ENCOUNTER 2023-05-22 16:52 | Inpatient (IN) | payer OTHER ==
[2023-05-22 21:19] LABS: VENOUS BASE EXCESS 1.2 mmol/L (-2-2); VENOUS O2 SATURATION 51.9 % (70-80); VENOUS PCO2 49.2 mmHg (38-52); VENOUS PH 7.358 (7.310-7.410)
[2023-05-22 21:23] LABS: BASO % 0.2 % (0-2.0); EOS % 0.2 % (0-4.5); HEMATOCRIT 22.8 % (32.4-45.2); HEMOGLOBIN 7.2 GM/dL (10.7-15.3); LYMPH % 2.5 % (8-40); MCH 28.3 pg (25.7-33.7); MCHC 31.6 g/dl (32.0-36.0); MEAN CELL VOLUME 89.8 fl (80-96); MEAN PLT VOLUME 7.7 fl (7.5-11.1); MONO % 6.2 % (3.8-10.2); NEUT % 90.9 % (42.8-82.8); PLATELET COUNT 362 10^3/uL (134-434); RBC 2.54 M/mm3 (3.60-5.2); WHITE BLOOD COUNT 17.6 K/mm3 (4.0-10.0)
[2023-05-22 21:38] LABS: CHLORIDE 93 mmol/L (98-107); SODIUM 131 mmol/L (136-145)
[2023-05-22 21:41] LABS: CALCIUM 9.8 mg/dL (8.5-10.1)
[2023-05-22 21:42] LABS: ALBUMIN 1.9 g/dl (3.4-5.0); BLOOD UREA NITROGEN 73.5 mg/dL (7-18); CO2 28 mmol/L (21-32); GLUCOSE,RANDOM 102 mg/dL (74-106)
[2023-05-22 21:45] LABS: CREATININE 4.2 mg/dL (0.55-1.3); SGOT/AST 27 U/L (15-37); SGPT/ALT 36 U/L (13-61)
[2023-05-22 21:46] LABS: TOT PROT 8.3 g/dl (6.4-8.2)
[2023-05-22 21:47] LABS: BILIRUBIN,TOTAL 0.5 mg/dL (0.2-1)
[2023-05-22 21:48] LABS: ALK PHOS 124 U/L (45-117)
[2023-05-22 21:53] LABS: ANION GAP 11 mmol/L (4-13); POTASSIUM 2.9 mmol/L (3.5-5.1)
[2023-05-22] MEDS ORDERED: VANCOMYCIN 1,000 MG in DEXTROSE 5%-WATER - 250 ML IVPB ONE (22:01)
[2023-05-22] MEDS ORDERED: ACETAMINOPHEN 1000 MG/100 ML BAG IVPB ONE (22:01)
[2023-05-22] MEDS ORDERED: PIPERACILLIN/TAZOB 2.25 GM 2.25 GM in DEXTROSE 5%-WATER - 50 ML IVPB ONE (22:02)
[2023-05-22 22:27] LABS: ANISOCYTOSIS 2+; MACROCYTOSIS 0; OVALOCYTE 1+; TARGET CELLS 2+
[2023-05-22] MEDS ORDERED: ACETAMINOPHEN INJECTION 100 ML IVPB ONE (22:33)
[2023-05-22 22:54] LABS: INR 1.41 (0.83-1.09); PROTHROMBIN TIME (PATIENT) 16.3 SEC (9.7-13.0)
[2023-05-22 22:56] LABS: ACTIVATED PTT 28.7 SECONDS (25.2-36.5)
[2023-05-22] MEDS ORDERED: CEFEPIME HCL/D5W 1 GM/50 ML BAG IVPB ONE (22:58)
[2023-05-22] MEDS ORDERED: KCL 10 MEQ IVPB 10 MEQ/100 ML INFUS.BAG IVPB SCH (23:00)
[2023-05-23] MEDS ORDERED: CEFEPIME 1 GM/100 ML BAG IVPB ONE (00:01)
[2023-05-23 08:34] LABS: PH,URINE 5.5 (5.0-8.0); URINE APPEARANCE Clear; URINE BILIRUBIN 1+ (NEGATIVE); URINE COLOR Yellow; URINE GLUCOSE (UA) Trace (NEGATIVE); URINE KETONE Trace (NEGATIVE); URINE LEUK ESTERASE Trace (NEGATIVE); URINE NITRITE Negative (NEGATIVE); URINE PROTEIN 3+ (NEGATIVE); URINE UROBILINOGEN 0.2 mg/dL (0.2-1.0)
[2023-05-23] MEDS ORDERED: BISACODYL 10 MG SUPP.RECT RC PRN (08:34)
[2023-05-23 08:45] LABS: EPI CELLS FEW /uL (0-25.1); URINE BACTERIA FEW /uL (0-1359); URINE RBC 50-100 /uL (0-23.9)
[2023-05-23] MEDS: levETIRAcetam 500 MG/5 ML ORAL SOLUTION (UNIT-DOSE CUPS) GT SCH ×2 (11:19→21:51)
[2023-05-23] MEDS: FAMOTIDINE 20 MG/2.5 ML ORAL LIQUID PEG SCH (11:19)
[2023-05-23] MEDS: LACTOBACILLUS ACIDOPHILUS 1 TABLET GT SCH (11:20)
[2023-05-23] MEDS: ASPIRIN 81 MG CHEWABLE TABLETS GT SCH (11:20)
[2023-05-23] MEDS: LIDOCAINE 4% PATCH TP SCH (11:20)
[2023-05-23] MEDS: HEPARIN NA (PORCINE) 5,000 UNITS/ML 1ML VIAL SQ SCH ×2 (11:20→21:51)
[2023-05-23] MEDS ORDERED: ASPIRIN 81 MG CHEWABLE TABLETS ONE (11:27)
[2023-05-23] MEDS ORDERED: HEPARIN NA (PORCINE) 5,000 UNITS/ML 1ML VIAL ONE ×2 (11:28→21:45)
[2023-05-23] MEDS ORDERED: LIDOCAINE 4% PATCH TP ONE (11:28)
[2023-05-23 12:15] LABS: BASO % 0.5 % (0-2.0); EOS % 1.1 % (0-4.5); HEMATOCRIT 24.1 % (32.4-45.2); HEMOGLOBIN 7.5 GM/dL (10.7-15.3); MCHC 31.2 g/dl (32.0-36.0); MEAN CELL VOLUME 89.8 fl (80-96); MEAN PLT VOLUME 7.6 fl (7.5-11.1); MONO % 8.1 % (3.8-10.2); NEUT % 88.3 % (42.8-82.8); PLATELET COUNT 381 10^3/uL (134-434); RBC 2.69 M/mm3 (3.60-5.2); RDW 16.5 % (11.6-15.6); WHITE BLOOD COUNT 19.9 K/mm3 (4.0-10.0)
[2023-05-23 12:36] LABS: CHLORIDE 92 mmol/L (98-107); SODIUM 132 mmol/L (136-145)
[2023-05-23 12:40] LABS: CALCIUM 9.7 mg/dL (8.5-10.1); CO2 28 mmol/L (21-32)
[2023-05-23 12:41] LABS: MAGNESIUM 2.6 mg/dL (1.8-2.4)
[2023-05-23 12:42] LABS: BLOOD UREA NITROGEN 84.8 mg/dL (7-18); GLUCOSE,RANDOM 78 mg/dL (74-106)
[2023-05-23 12:44] LABS: PHOSPHOROUS 3.5 mg/dL (2.5-4.9)
[2023-05-23 12:45] LABS: CREATININE 4.6 mg/dL (0.55-1.3)
[2023-05-23 12:54] LABS: ANION GAP 11 mmol/L (4-13); POTASSIUM 2.9 mmol/L (3.5-5.1)
[2023-05-23] MEDS ORDERED: ALBUTEROL SO4 2.5/IPRATROPIUM 0.5 INH SOL 3 ML VIAL.NEB. NEB ONE ×2 (12:57→16:05)
[2023-05-23] MEDS: ALBUTEROL SO4 2.5/IPRATROPIUM 0.5 INH SOL 3 ML VIAL.NEB. NEB SCH ×2 (13:18→16:14)
[2023-05-23] MEDS ORDERED: MIDODRINE HCL 5 MG TABLET ONE ×3 (13:23→18:17)
[2023-05-23] MEDS: MIDODRINE HCL 5 MG TABLET PO SCH ×3 (13:36→18:26)
[2023-05-23] MEDS ORDERED: ALBUTEROL SO4 2.5/IPRATROPIUM 0.5 INH SOL 3 ML VIAL.NEB. NEB PRN (19:06)
[2023-05-23] MEDS ORDERED: ATORVASTATIN CA 40 MG TABLET (FP) ONE (21:42)
[2023-05-23] MEDS: LIDOCAINE PATCH REMOVAL MC SCH (21:51)
[2023-05-23] MEDS: ATORVASTATIN CA 40 MG TABLET (FP) GT SCH (21:51)
[2023-05-23] MEDS ORDERED: CEFEPIME 0.5 GM in DEXTROSE 5%-WATER - 100 ML IVPB SCH (22:00)
[2023-05-23] MEDS ORDERED: PATIENT'S OWN MEDICATION (NON-FORMULARY) (Lidocaine Patch Removal 1 EACH Each) MC SCH (22:00)
[2023-05-24] MEDS ORDERED: CEFEPIME HCL 1 GM VIAL (RESTRICTED TO ID) IVPB SCH (10:00)
[2023-05-24] MEDS: levETIRAcetam 500 MG/5 ML ORAL SOLUTION (UNIT-DOSE CUPS) GT SCH ×2 (11:00→23:30)
[2023-05-24] MEDS: CEFEPIME 1 GM in DEXTROSE 5%-WATER - 50 ML IVPB SCH (11:00)
[2023-05-24] MEDS: ASPIRIN 81 MG CHEWABLE TABLETS GT SCH (11:00)
[2023-05-24] MEDS: HEPARIN NA (PORCINE) 5,000 UNITS/ML 1ML VIAL SQ SCH ×2 (11:05→22:48)
[2023-05-24] MEDS: LACTOBACILLUS ACIDOPHILUS 1 TABLET GT SCH (11:54)
[2023-05-24] MEDS: LIDOCAINE 4% PATCH TP SCH (11:54)
[2023-05-24] MEDS: FAMOTIDINE 20 MG/2.5 ML ORAL LIQUID PEG SCH (11:55)
[2023-05-24] MEDS: MIDODRINE HCL 5 MG TABLET PO SCH ×3 (11:56→18:33)
[2023-05-24] MEDS ORDERED: POTASSIUM CHLORIDE ORAL LIQUID 20 MEQ/15 ML GT ONE (14:45)
[2023-05-24] MEDS ORDERED: VANCOMYCIN 1,000 MG in DEXTROSE 5%-WATER - 250 ML IVPB ONE (15:01)
[2023-05-24] MEDS ORDERED: KCL 10 MEQ IVPB 30 MEQ/300 ML INFUS.BAG IVPB ONE (15:58)
[2023-05-24] MEDS ORDERED: VANCOMYCIN 1 GRAM (PRE-DOCKED) 1,000 MG/250 ML BAG IVPB ONE (15:58)
[2023-05-24] MEDS ORDERED: VANCOMYCIN/WATER FOR INJ (PEG) 1,000 MG/200 ML BAG IVPB ONE (16:11)
[2023-05-24] MEDS: KCL 10 MEQ IVPB 10 MEQ/100 ML INFUS.BAG IVPB SCH ×3 (16:15→18:46)
[2023-05-24] MEDS: ATORVASTATIN CA 40 MG TABLET (FP) GT SCH (23:00)
[2023-05-24] MEDS: LIDOCAINE PATCH REMOVAL MC SCH (23:30)
[2023-05-25 07:23] LABS: BASO % 0.2 % (0-2.0); EOS % 1.1 % (0-4.5); HEMATOCRIT 23.5 % (32.4-45.2); HEMOGLOBIN 7.5 GM/dL (10.7-15.3); LYMPH % 2.8 % (8-40); MCH 27.9 pg (25.7-33.7); MCHC 31.8 g/dl (32.0-36.0); MEAN PLT VOLUME 7.6 fl (7.5-11.1); MONO % 9.9 % (3.8-10.2); PLATELET COUNT 466 10^3/uL (134-434); RBC 2.67 M/mm3 (3.60-5.2); RDW 17.1 % (11.6-15.6); WHITE BLOOD COUNT 17.5 K/mm3 (4.0-10.0)
[2023-05-25] MEDS ORDERED: SODIUM CHLORIDE 250 ML IV PRN (07:43)
[2023-05-25 07:47] LABS: CHLORIDE 94 mmol/L (98-107); SODIUM 129 mmol/L (136-145)
[2023-05-25 07:52] LABS: CALCIUM 9.1 mg/dL (8.5-10.1)
[2023-05-25 07:53] LABS: ALBUMIN 1.7 g/dl (3.4-5.0); ANION GAP 12 mmol/L (4-13); CO2 23 mmol/L (21-32); GLUCOSE,RANDOM 66 mg/dL (74-106)
[2023-05-25 07:56] LABS: ALK PHOS 118 U/L (45-117); CREATININE 5.9 mg/dL (0.55-1.3); SGOT/AST 18 U/L (15-37); SGPT/ALT 21 U/L (13-61)
[2023-05-25 07:57] LABS: BILIRUBIN,TOTAL 0.4 mg/dL (0.2-1)
[2023-05-25 07:58] LABS: TOT PROT 7.6 g/dl (6.4-8.2)
[2023-05-25 08:24] LABS: BLOOD UREA NITROGEN 108.6 mg/dL (7-18)
[2023-05-25] MEDS ORDERED: EPOETIN ALFA-EPBX 4,000 UNIT/ML VIAL SQ ONE (09:00)
[2023-05-25] MEDS: ASPIRIN 81 MG CHEWABLE TABLETS GT SCH (09:39)
[2023-05-25] MEDS: LACTOBACILLUS ACIDOPHILUS 1 TABLET GT SCH (09:39)
[2023-05-25] MEDS: FAMOTIDINE 20 MG/2.5 ML ORAL LIQUID PEG SCH (09:40)
[2023-05-25] MEDS: MIDODRINE HCL 5 MG TABLET PO SCH ×3 (09:41→17:21)
[2023-05-25 10:28] VITALS: BMI 33.7
[2023-05-25] MEDS: HEPARIN NA (PORCINE) 5,000 UNITS/ML 1ML VIAL SQ SCH ×2 (12:16→21:32)
[2023-05-25] MEDS: levETIRAcetam 500 MG/5 ML INJECTION VIAL IVPB SCH ×2 (12:16→21:32)
[2023-05-25] MEDS: CEFEPIME 1 GM in DEXTROSE 5%-WATER - 50 ML IVPB SCH (12:16)
[2023-05-25] MEDS: LIDOCAINE 4% PATCH TP SCH (12:17)
[2023-05-25] MEDS: ATORVASTATIN CA 40 MG TABLET (FP) GT SCH (21:33)
[2023-05-25] MEDS: LIDOCAINE PATCH REMOVAL MC SCH (21:33)
[2023-05-25] MEDS: POTASSIUM CHLORIDE ORAL LIQUID 20 MEQ/15 ML GT SCH (21:33)
[2023-05-26 07:30] LABS: HEMATOCRIT 21.7 % (32.4-45.2); HEMOGLOBIN 7.1 GM/dL (10.7-15.3); MCHC 32.5 g/dl (32.0-36.0); MEAN CELL VOLUME 89.2 fl (80-96); MEAN PLT VOLUME 7.8 fl (7.5-11.1); PLATELET COUNT 417 10^3/uL (134-434); RBC 2.43 M/mm3 (3.60-5.2); RDW 16.9 % (11.6-15.6); WHITE BLOOD COUNT 14.6 K/mm3 (4.0-10.0)
[2023-05-26 08:38] LABS: ALBUMIN 1.8 g/dl (3.4-5.0); ALK PHOS 111 U/L (45-117); ANION GAP 11 mmol/L (4-13); BILIRUBIN,TOTAL 0.5 mg/dL (0.2-1); BLOOD UREA NITROGEN 51.8 mg/dL (7-18); CALCIUM 9.4 mg/dL (8.5-10.1); CHLORIDE 98 mmol/L (98-107); CO2 26 mmol/L (21-32); CREATININE 3.3 mg/dL (0.55-1.3); GLUCOSE,RANDOM 63 mg/dL (74-106); MAGNESIUM 2.3 mg/dL (1.8-2.4); POTASSIUM 2.8 mmol/L (3.5-5.1); SGOT/AST 16 U/L (15-37); SGPT/ALT 19 U/L (13-61); SODIUM 135 mmol/L (136-145); TOT PROT 7.6 g/dl (6.4-8.2)
[2023-05-26] MEDS: CEFEPIME 1 GM in DEXTROSE 5%-WATER - 50 ML IVPB SCH (10:00)
[2023-05-26] MEDS: FAMOTIDINE 20 MG/2.5 ML ORAL LIQUID PEG SCH (10:46)
[2023-05-26] MEDS: HEPARIN NA (PORCINE) 5,000 UNITS/ML 1ML VIAL SQ SCH ×2 (10:46→21:17)
[2023-05-26] MEDS: levETIRAcetam 500 MG/5 ML INJECTION VIAL IVPB SCH ×2 (10:46→21:17)
[2023-05-26] MEDS: LIDOCAINE 4% PATCH TP SCH (13:44)
[2023-05-26] MEDS: ASPIRIN 81 MG CHEWABLE TABLETS GT SCH (13:44)
[2023-05-26] MEDS: POTASSIUM CHLORIDE ORAL LIQUID 20 MEQ/15 ML GT SCH ×2 (13:46→21:22)
[2023-05-26] MEDS: MIDODRINE HCL 5 MG TABLET PO SCH ×3 (13:47→18:28)
[2023-05-26] MEDS: LACTOBACILLUS ACIDOPHILUS 1 TABLET GT SCH (15:42)
[2023-05-26] MEDS: KCL 10 MEQ IVPB 10 MEQ/100 ML INFUS.BAG IVPB SCH ×3 (16:31→18:29)
[2023-05-26] MEDS ORDERED: SODIUM CHLORIDE 250 ML IV PRN (16:37)
[2023-05-26] MEDS ORDERED: AMINO ACID 8 % IN D14W 1,000 ML IV.SOLN IVPB SCH (16:45)
[2023-05-26] MEDS ORDERED: KCL 20 MEQ PREMIX BAG 100 ML IVPB SCH (16:45)
[2023-05-26] MEDS: LIDOCAINE PATCH REMOVAL MC SCH (21:17)
[2023-05-26] MEDS: ATORVASTATIN CA 40 MG TABLET (FP) GT SCH (21:18)
[2023-05-27 07:01] LABS: HEMATOCRIT 22.1 % (32.4-45.2); MCH 27.5 pg (25.7-33.7); MCHC 31.1 g/dl (32.0-36.0); MEAN CELL VOLUME 88.6 fl (80-96); MEAN PLT VOLUME 7.2 fl (7.5-11.1); PLATELET COUNT 415 10^3/uL (134-434); RDW 16.8 % (11.6-15.6); WHITE BLOOD COUNT 11.4 K/mm3 (4.0-10.0)
[2023-05-27 07:26] LABS: CHLORIDE 100 mmol/L (98-107); SODIUM 136 mmol/L (136-145)
[2023-05-27 07:28] LABS: BLOOD UREA NITROGEN 60.5 mg/dL (7-18); CALCIUM 9.6 mg/dL (8.5-10.1)
[2023-05-27 07:29] LABS: ALBUMIN 1.7 g/dl (3.4-5.0); CO2 24 mmol/L (21-32); GLUCOSE,RANDOM 61 mg/dL (74-106); MAGNESIUM 2.4 mg/dL (1.8-2.4)
[2023-05-27 07:31] LABS: BILIRUBIN,DIRECT 0.2 mg/dL (0.0-0.2); CREATININE 4.1 mg/dL (0.55-1.3); SGOT/AST 15 U/L (15-37); SGPT/ALT 16 U/L (13-61)
[2023-05-27 07:32] LABS: PHOSPHOROUS 3.5 mg/dL (2.5-4.9)
[2023-05-27 07:33] LABS: BILIRUBIN,TOTAL 0.3 mg/dL (0.2-1); TOT PROT 7.3 g/dl (6.4-8.2)
[2023-05-27 07:34] LABS: ALK PHOS 101 U/L (45-117)
[2023-05-27 07:37] LABS: HEMOGLOBIN 6.9 GM/dL (10.7-15.3)
[2023-05-27 07:48] LABS: ANION GAP 12 mmol/L (4-13); POTASSIUM 2.8 mmol/L (3.5-5.1)
[2023-05-27 09:24] LABS: ANISOCYTOSIS 1+; MACROCYTOSIS 0
[2023-05-27 09:25] LABS: IRON SERUM 39 ug/dL (50-175)
[2023-05-27 09:26] LABS: TOTAL IRON BINDING CAPACITY 54 ug/dL (250-450)
[2023-05-27] MEDS: ASPIRIN 81 MG CHEWABLE TABLETS GT SCH (10:34)
[2023-05-27] MEDS: MIDODRINE HCL 5 MG TABLET PO SCH ×3 (10:35→17:06)
[2023-05-27] MEDS: levETIRAcetam 500 MG/5 ML ORAL SOLUTION (UNIT-DOSE CUPS) GT SCH ×2 (10:35→22:13)
[2023-05-27] MEDS: LACTOBACILLUS ACIDOPHILUS 1 TABLET GT SCH (10:35)
[2023-05-27] MEDS: FAMOTIDINE 20 MG/2.5 ML ORAL LIQUID PEG SCH (10:35)
[2023-05-27] MEDS: POTASSIUM CHLORIDE ORAL LIQUID 20 MEQ/15 ML GT SCH ×2 (10:35→22:12)
[2023-05-27] MEDS: CEFEPIME 1 GM in DEXTROSE 5%-WATER - 50 ML IVPB SCH (11:19)
[2023-05-27] MEDS: levETIRAcetam 500 MG/5 ML INJECTION VIAL IVPB SCH ×2 (11:20→22:14)
[2023-05-27] MEDS: LIDOCAINE 4% PATCH TP SCH (11:20)
[2023-05-27] MEDS: HEPARIN NA (PORCINE) 5,000 UNITS/ML 1ML VIAL SQ SCH ×2 (12:06→22:14)
[2023-05-27] MEDS: KCL 10 MEQ IVPB 10 MEQ/100 ML INFUS.BAG IVPB SCH ×3 (14:31→17:06)
[2023-05-27] MEDS: LIDOCAINE PATCH REMOVAL MC SCH (22:13)
[2023-05-27] MEDS: ATORVASTATIN CA 40 MG TABLET (FP) GT SCH (22:13)
[2023-05-28] MEDS ORDERED: DEXTROSE 50%-WATER 25 GM/50 ML DISP.SYRIN IVPUSH ONE (00:01)
[2023-05-28] MEDS: CEFEPIME 1 GM in DEXTROSE 5%-WATER - 50 ML IVPB SCH (11:18)
[2023-05-28] MEDS: LACTOBACILLUS ACIDOPHILUS 1 TABLET GT SCH (12:17)
[2023-05-28] MEDS: LIDOCAINE 4% PATCH TP SCH (12:17)
[2023-05-28] MEDS: ASPIRIN 81 MG CHEWABLE TABLETS GT SCH (12:17)
[2023-05-28] MEDS: HEPARIN NA (PORCINE) 5,000 UNITS/ML 1ML VIAL SQ SCH ×2 (12:17→21:50)
[2023-05-28] MEDS: levETIRAcetam 500 MG/5 ML INJECTION VIAL IVPB SCH ×2 (12:18→21:50)
[2023-05-28] MEDS: POTASSIUM CHLORIDE ORAL LIQUID 20 MEQ/15 ML GT SCH ×2 (12:19→21:51)
[2023-05-28] MEDS: FAMOTIDINE 20 MG/2.5 ML ORAL LIQUID PEG SCH (12:19)
[2023-05-28] MEDS ORDERED: SODIUM CHLORIDE 250 ML IV PRN (14:47)
[2023-05-28] MEDS: AMINO ACIDS 4.25%/D5W 1,000 ML IV SCH (15:19)
[2023-05-28] MEDS: MIDODRINE HCL 5 MG TABLET PO SCH ×2 (15:19→18:16)
[2023-05-28] MEDS ORDERED: VANCOMYCIN/WATER FOR INJ (PEG) 1,000 MG/200 ML BAG IVPB ONE (16:07)
[2023-05-28 19:27] LABS: BASO % 0.3 % (0-2.0); HEMATOCRIT 32.3 % (32.4-45.2); MCH 28.4 pg (25.7-33.7); MCHC 31.1 g/dl (32.0-36.0); MEAN CELL VOLUME 91.5 fl (80-96); MONO % 12.6 % (3.8-10.2); NEUT % 78.1 % (42.8-82.8); RBC 3.53 M/mm3 (3.60-5.2); RDW 16.4 % (11.6-15.6); WHITE BLOOD COUNT 12.6 K/mm3 (4.0-10.0)
[2023-05-28 19:29] LABS: MEAN PLT VOLUME 7.5 fl (7.5-11.1); PLATELET COUNT 253 10^3/uL (134-434)
[2023-05-28 20:26] LABS: ALBUMIN 1.7 g/dl (3.4-5.0); BILIRUBIN,TOTAL 0.5 mg/dL (0.2-1); BLOOD UREA NITROGEN 32.7 mg/dL (7-18); CALCIUM 9.5 mg/dL (8.5-10.1); POTASSIUM 4.3 mmol/L (3.5-5.1); TOT PROT 7.7 g/dl (6.4-8.2)
[2023-05-28] MEDS: ATORVASTATIN CA 40 MG TABLET (FP) GT SCH (21:51)
[2023-05-28] MEDS: LIDOCAINE PATCH REMOVAL MC SCH (21:51)
[2023-05-29] MEDS: AMINO ACIDS 4.25%/D5W 1,000 ML IV SCH ×2 (05:03→12:10)
[2023-05-29] MEDS: ASPIRIN 81 MG CHEWABLE TABLETS GT SCH (09:39)
[2023-05-29] MEDS: MIDODRINE HCL 5 MG TABLET PO SCH ×3 (09:40→17:01)
[2023-05-29] MEDS: FAMOTIDINE 20 MG/2.5 ML ORAL LIQUID PEG SCH (09:40)
[2023-05-29] MEDS: POTASSIUM CHLORIDE ORAL LIQUID 20 MEQ/15 ML GT SCH ×2 (09:40→21:24)
[2023-05-29] MEDS: LACTOBACILLUS ACIDOPHILUS 1 TABLET GT SCH (09:40)
[2023-05-29] MEDS ORDERED: EPOETIN ALFA-EPBX 10,000 UNIT/ML VIAL SQ ONE (10:00)
[2023-05-29] MEDS: levETIRAcetam 500 MG/5 ML INJECTION VIAL IVPB SCH ×2 (11:21→21:23)
[2023-05-29] MEDS: LIDOCAINE 4% PATCH TP SCH (11:21)
[2023-05-29] MEDS: CEFEPIME 1 GM in DEXTROSE 5%-WATER - 50 ML IVPB SCH (11:21)
[2023-05-29] MEDS: HEPARIN NA (PORCINE) 5,000 UNITS/ML 1ML VIAL SQ SCH ×2 (11:21→21:23)
[2023-05-29 17:12] LABS: HEMATOCRIT 30.2 % (32.4-45.2); HEMOGLOBIN 9.7 GM/dL (10.7-15.3); MCH 28.8 pg (25.7-33.7); MCHC 32.2 g/dl (32.0-36.0); MEAN CELL VOLUME 89.3 fl (80-96); MEAN PLT VOLUME 6.9 fl (7.5-11.1); PLATELET COUNT 356 10^3/uL (134-434); RBC 3.38 M/mm3 (3.60-5.2); RDW 16.4 % (11.6-15.6); WHITE BLOOD COUNT 13.1 K/mm3 (4.0-10.0)
[2023-05-29 17:31] LABS: CALCIUM 8.9 mg/dL (8.5-10.1); CHLORIDE 100 mmol/L (98-107); SODIUM 136 mmol/L (136-145)
[2023-05-29 17:32] LABS: ALBUMIN 1.7 g/dl (3.4-5.0); BLOOD UREA NITROGEN 16.7 mg/dL (7-18); CO2 29 mmol/L (21-32); GLUCOSE,RANDOM 111 mg/dL (74-106)
[2023-05-29 17:35] LABS: CREATININE 1.6 mg/dL (0.55-1.3); SGPT/ALT 13 U/L (13-61)
[2023-05-29 17:36] LABS: SGOT/AST 17 U/L (15-37)
[2023-05-29 17:37] LABS: BILIRUBIN,TOTAL 0.4 mg/dL (0.2-1); TOT PROT 7.4 g/dl (6.4-8.2)
[2023-05-29 17:38] LABS: ALK PHOS 95 U/L (45-117)
[2023-05-29 17:45] LABS: ANION GAP 7 mmol/L (4-13); POTASSIUM 2.9 mmol/L (3.5-5.1)
[2023-05-29] MEDS: KCL 10 MEQ IVPB 10 MEQ/100 ML INFUS.BAG IVPB SCH ×3 (18:18→22:55)
[2023-05-29 18:30] LABS: ANISOCYTOSIS 1+; MACROCYTOSIS 1+; OVALOCYTE 1+; TARGET CELLS 1+
[2023-05-29 18:37] LABS: PLATELET ESTIMATE ADEQUATE
[2023-05-29] MEDS: LIDOCAINE PATCH REMOVAL MC SCH (21:23)
[2023-05-29] MEDS: ATORVASTATIN CA 40 MG TABLET (FP) GT SCH (21:23)
[2023-05-30] MEDS: AMINO ACIDS 4.25%/D5W 1,000 ML IV SCH ×2 (01:27→14:17)
[2023-05-30] MEDS: KCL 10 MEQ IVPB 10 MEQ/100 ML INFUS.BAG IVPB SCH ×2 (01:28→02:10)
[2023-05-30 07:26] LABS: HEMOGLOBIN 8.8 GM/dL (10.7-15.3); MCH 29.3 pg (25.7-33.7); MCHC 32.5 g/dl (32.0-36.0); MEAN CELL VOLUME 90.1 fl (80-96); MEAN PLT VOLUME 7.2 fl (7.5-11.1); PLATELET COUNT 296 10^3/uL (134-434); RDW 16.5 % (11.6-15.6); WHITE BLOOD COUNT 10.1 K/mm3 (4.0-10.0)
[2023-05-30 07:51] LABS: CHLORIDE 97 mmol/L (98-107); SODIUM 124 mmol/L (136-145)
[2023-05-30 08:23] LABS: ALBUMIN 1.6 g/dl (3.4-5.0)
[2023-05-30 08:26] LABS: BLOOD UREA NITROGEN 23.4 mg/dL (7-18); CO2 26 mmol/L (21-32); GLUCOSE,RANDOM 172 mg/dL (74-106)
[2023-05-30 08:29] LABS: CREATININE 1.8 mg/dL (0.55-1.3); SGOT/AST 14 U/L (15-37); SGPT/ALT 12 U/L (13-61)
[2023-05-30 08:30] LABS: BILIRUBIN,TOTAL 0.3 mg/dL (0.2-1); TOT PROT 6.7 g/dl (6.4-8.2)
[2023-05-30 08:32] LABS: ALK PHOS 84 U/L (45-117)
[2023-05-30 08:37] LABS: ANION GAP 1 mmol/L (4-13)
[2023-05-30] MEDS ORDERED: BUPIVACAINE HCL/PF 0.25% (2.5MG/ML) 10 ML VIAL ONE (09:20)
[2023-05-30] MEDS: CEFEPIME 1 GM in DEXTROSE 5%-WATER - 50 ML IVPB SCH (09:33)
[2023-05-30] MEDS: levETIRAcetam 500 MG/5 ML INJECTION VIAL IVPB SCH ×2 (09:35→21:37)
[2023-05-30] MEDS: POTASSIUM CHLORIDE ORAL LIQUID 20 MEQ/15 ML GT SCH ×2 (09:36→21:27)
[2023-05-30] MEDS: FAMOTIDINE 20 MG/2.5 ML ORAL LIQUID PEG SCH (09:36)
[2023-05-30] MEDS: ASPIRIN 81 MG CHEWABLE TABLETS GT SCH (09:36)
[2023-05-30] MEDS: LACTOBACILLUS ACIDOPHILUS 1 TABLET GT SCH (09:36)
[2023-05-30] MEDS: MIDODRINE HCL 5 MG TABLET PO SCH ×3 (09:36→18:43)
[2023-05-30] MEDS ORDERED: VANCOMYCIN/WATER FOR INJ (PEG) 1,000 MG/200 ML BAG IVPB ONE (10:00)
[2023-05-30 10:07] LABS: POTASSIUM 3.7 mmol/L (3.5-5.1)
[2023-05-30 10:08] LABS: CALCIUM 8.6 mg/dL (8.5-10.1)
[2023-05-30 10:09] LABS: ALBUMIN 1.5 g/dl (3.4-5.0); BLOOD UREA NITROGEN 24.6 mg/dL (7-18)
[2023-05-30 10:12] LABS: CREATININE 1.9 mg/dL (0.55-1.3)
[2023-05-30 10:14] LABS: BILIRUBIN,TOTAL 0.2 mg/dL (0.2-1)
[2023-05-30 10:17] LABS: TOT PROT 6.7 g/dl (6.4-8.2)
[2023-05-30 11:18] LABS: ANISOCYTOSIS 0; HELMET CELLS 0; HOWELL-JOLLY BODIES 0; MACROCYTOSIS 0; OVALOCYTE 0; ROULEAU 0; SICKELED CELLS 0; TARGET CELLS 0; TEAR DROP CELLS 0; TOXIC GRANULATION 0
[2023-05-30] MEDS ORDERED: ONDANSETRON 4 MG/2 ML VIAL ONE (11:31)
[2023-05-30] MEDS: LIDOCAINE 4% PATCH TP SCH (12:39)
[2023-05-30] MEDS: LIDOCAINE PATCH REMOVAL MC SCH (21:27)
[2023-05-30] MEDS: ATORVASTATIN CA 40 MG TABLET (FP) GT SCH (21:27)
[2023-05-30] MEDS: MUPIROCIN 2% TOPICAL OINTMENT FOR DECOLONIZATION NS SCH (21:37)
[2023-05-30] MEDS: CHLORHEXIDINE GLUCONATE 4% CLEANSER FOR DECOLONIZATION TP SCH (21:37)
[2023-05-31 07:20] LABS: HEMATOCRIT 28.7 % (32.4-45.2); MCH 28.8 pg (25.7-33.7); MCHC 31.4 g/dl (32.0-36.0); MEAN CELL VOLUME 91.6 fl (80-96); MEAN PLT VOLUME 7.3 fl (7.5-11.1); PLATELET COUNT 303 10^3/uL (134-434); RBC 3.13 M/mm3 (3.60-5.2); RDW 16.7 % (11.6-15.6); WHITE BLOOD COUNT 16.1 K/mm3 (4.0-10.0)
[2023-05-31 07:43] LABS: POTASSIUM 4.5 mmol/L (3.5-5.1)
[2023-05-31 07:49] LABS: MAGNESIUM 1.6 mg/dL (1.8-2.4)
[2023-05-31 07:50] LABS: BLOOD UREA NITROGEN 37.9 mg/dL (7-18)
[2023-05-31 07:53] LABS: CREATININE 2.7 mg/dL (0.55-1.3)
[2023-05-31] MEDS ORDERED: SODIUM CHLORIDE 250 ML IV PRN (08:28)
[2023-05-31] MEDS ORDERED: ACETAMINOPHEN 1000 MG/100 ML BAG IVPB ONE (08:30)
[2023-05-31] MEDS ORDERED: EPOETIN ALFA-EPBX 10,000 UNIT/ML VIAL SQ ONE (09:00)
[2023-05-31] MEDS: ASPIRIN 81 MG CHEWABLE TABLETS GT SCH (13:20)
[2023-05-31] MEDS: LIDOCAINE 4% PATCH TP SCH (13:20)
[2023-05-31] MEDS: MUPIROCIN 2% TOPICAL OINTMENT FOR DECOLONIZATION NS SCH ×2 (13:20→21:01)
[2023-05-31] MEDS: LACTOBACILLUS ACIDOPHILUS 1 TABLET GT SCH (13:20)
[2023-05-31] MEDS: CEFEPIME 1 GM in DEXTROSE 5%-WATER - 50 ML IVPB SCH (13:21)
[2023-05-31] MEDS: POTASSIUM CHLORIDE ORAL LIQUID 20 MEQ/15 ML GT SCH ×2 (13:21→21:00)
[2023-05-31] MEDS: FAMOTIDINE 20 MG/2.5 ML ORAL LIQUID PEG SCH (13:21)
[2023-05-31] MEDS: levETIRAcetam 500 MG/5 ML INJECTION VIAL IVPB SCH ×2 (13:21→21:00)
[2023-05-31] MEDS: MIDODRINE HCL 5 MG TABLET PO SCH ×3 (14:56→17:27)
[2023-05-31] MEDS: AMINO ACIDS 4.25%/D5W 1,000 ML IV SCH ×2 (15:55→16:02)
[2023-05-31] MEDS: ATORVASTATIN CA 40 MG TABLET (FP) GT SCH (21:00)
[2023-05-31] MEDS: CHLORHEXIDINE GLUCONATE 4% CLEANSER FOR DECOLONIZATION TP SCH (21:01)
[2023-05-31] MEDS: LIDOCAINE PATCH REMOVAL MC SCH (21:01)
[2023-06-01] MEDS: POTASSIUM CHLORIDE ORAL LIQUID 20 MEQ/15 ML GT SCH ×2 (10:29→21:36)
[2023-06-01] MEDS: MIDODRINE HCL 5 MG TABLET PO SCH ×3 (10:29→18:21)
[2023-06-01] MEDS: LACTOBACILLUS ACIDOPHILUS 1 TABLET GT SCH (10:30)
[2023-06-01] MEDS: LIDOCAINE 4% PATCH TP SCH (10:30)
[2023-06-01] MEDS: ASPIRIN 81 MG CHEWABLE TABLETS GT SCH (10:30)
[2023-06-01] MEDS: FAMOTIDINE 20 MG/2.5 ML ORAL LIQUID PEG SCH (10:32)
[2023-06-01] MEDS: levETIRAcetam 500 MG/5 ML INJECTION VIAL IVPB SCH ×2 (10:32→21:37)
[2023-06-01] MEDS: AMINO ACIDS 4.25%/D5W 1,000 ML IV SCH ×2 (13:45→13:46)
[2023-06-01] MEDS: MUPIROCIN 2% TOPICAL OINTMENT FOR DECOLONIZATION NS SCH ×2 (13:46→21:37)
[2023-06-01] MEDS: LIDOCAINE PATCH REMOVAL MC SCH (21:37)
[2023-06-01] MEDS: ATORVASTATIN CA 40 MG TABLET (FP) GT SCH (21:37)
[2023-06-01] MEDS: CHLORHEXIDINE GLUCONATE 4% CLEANSER FOR DECOLONIZATION TP SCH (21:37)
[2023-06-02] MEDS: AMINO ACIDS 4.25%/D5W 1,000 ML IV SCH ×2 (01:00→17:02)
[2023-06-02] MEDS: POTASSIUM CHLORIDE ORAL LIQUID 20 MEQ/15 ML GT SCH ×2 (10:08→21:30)
[2023-06-02] MEDS: LACTOBACILLUS ACIDOPHILUS 1 TABLET GT SCH (10:08)
[2023-06-02] MEDS: LIDOCAINE 4% PATCH TP SCH (10:08)
[2023-06-02] MEDS: levETIRAcetam 500 MG/5 ML INJECTION VIAL IVPB SCH ×2 (10:08→21:33)
[2023-06-02] MEDS: MIDODRINE HCL 5 MG TABLET PO SCH ×3 (10:08→17:03)
[2023-06-02] MEDS: ASPIRIN 81 MG CHEWABLE TABLETS GT SCH (10:08)
[2023-06-02] MEDS: MUPIROCIN 2% TOPICAL OINTMENT FOR DECOLONIZATION NS SCH ×2 (10:09→21:33)
[2023-06-02] MEDS: FAMOTIDINE 20 MG/2.5 ML ORAL LIQUID PEG SCH (10:09)
[2023-06-02] MEDS: levETIRAcetam 500 MG/5 ML ORAL SOLUTION (UNIT-DOSE CUPS) GT SCH ×2 (10:10→23:06)
[2023-06-02] MEDS ORDERED: SODIUM CHLORIDE 250 ML IV PRN (13:53)
[2023-06-02] MEDS: LIDOCAINE PATCH REMOVAL MC SCH (21:33)
[2023-06-02] MEDS: ATORVASTATIN CA 40 MG TABLET (FP) GT SCH (21:33)
[2023-06-02] MEDS: CHLORHEXIDINE GLUCONATE 4% CLEANSER FOR DECOLONIZATION TP SCH (21:33)
[2023-06-03] MEDS: LIDOCAINE 4% PATCH TP SCH (10:23)
[2023-06-03] MEDS: MUPIROCIN 2% TOPICAL OINTMENT FOR DECOLONIZATION NS SCH ×2 (10:23→21:21)
[2023-06-03] MEDS: AMINO ACIDS 4.25%/D5W 1,000 ML IV SCH ×3 (10:24→21:21)
[2023-06-03] MEDS: levETIRAcetam 500 MG/5 ML INJECTION VIAL IVPB SCH ×2 (10:24→21:20)
[2023-06-03] MEDS: ALBUMIN HUMAN 25% 12.5 GM/50 ML VIAL IV SCH ×4 (14:00→15:30)
[2023-06-03 14:26] LABS: BASO % 0.2 % (0-2.0); EOS % 0.4 % (0-4.5); HEMATOCRIT 25.5 % (32.4-45.2); HEMOGLOBIN 8.2 GM/dL (10.7-15.3); LYMPH % 3.7 % (8-40); MCH 29.2 pg (25.7-33.7); MCHC 32.3 g/dl (32.0-36.0); MEAN CELL VOLUME 90.2 fl (80-96); MEAN PLT VOLUME 7.8 fl (7.5-11.1); MONO % 18.6 % (3.8-10.2); NEUT % 77.1 % (42.8-82.8); PLATELET COUNT 251 10^3/uL (134-434); RBC 2.83 M/mm3 (3.60-5.2); RDW 16.8 % (11.6-15.6); WHITE BLOOD COUNT 15.8 K/mm3 (4.0-10.0)
[2023-06-03] MEDS ORDERED: EPOETIN ALFA-EPBX 10,000 UNIT/ML VIAL SQ ONE (14:30)
[2023-06-03 14:44] LABS: POTASSIUM 5.2 mmol/L (3.5-5.1)
[2023-06-03 14:46] LABS: CALCIUM 9.4 mg/dL (8.5-10.1)
[2023-06-03 14:47] LABS: ALBUMIN 1.6 g/dl (3.4-5.0)
[2023-06-03 14:50] LABS: CREATININE 3.3 mg/dL (0.55-1.3)
[2023-06-03 14:51] LABS: BILIRUBIN,TOTAL 0.3 mg/dL (0.2-1)
[2023-06-03 14:53] LABS: BLOOD UREA NITROGEN 81.6 mg/dL (7-18)
[2023-06-03] MEDS ORDERED: VANCOMYCIN/WATER FOR INJ (PEG) 1,000 MG/200 ML BAG IVPB ONE (15:21)
[2023-06-03] MEDS: POTASSIUM CHLORIDE ORAL LIQUID 20 MEQ/15 ML GT SCH ×2 (17:04→21:20)
[2023-06-03] MEDS: FAMOTIDINE 20 MG/2.5 ML ORAL LIQUID PEG SCH (17:04)
[2023-06-03] MEDS: ASPIRIN 81 MG CHEWABLE TABLETS GT SCH (17:04)
[2023-06-03] MEDS: LACTOBACILLUS ACIDOPHILUS 1 TABLET GT SCH (17:04)
[2023-06-03] MEDS: MIDODRINE HCL 5 MG TABLET PO SCH ×2 (17:05→18:18)
[2023-06-03] MEDS: PIPERACILLIN/TAZOB 2.25 GM 2.25 GM in DEXTROSE 5%-WATER - 50 ML IVPB SCH (18:17)
[2023-06-03] MEDS: LIDOCAINE PATCH REMOVAL MC SCH (21:20)
[2023-06-03] MEDS: ATORVASTATIN CA 40 MG TABLET (FP) GT SCH (21:20)
[2023-06-03] MEDS: CHLORHEXIDINE GLUCONATE 4% CLEANSER FOR DECOLONIZATION TP SCH (21:21)
[2023-06-04] MEDS: PIPERACILLIN/TAZOB 2.25 GM 2.25 GM in DEXTROSE 5%-WATER - 50 ML IVPB SCH ×3 (02:27→17:45)
[2023-06-04] MEDS: AMINO ACIDS 4.25%/D5W 1,000 ML IV SCH (02:28)
[2023-06-04] MEDS: FAMOTIDINE 20 MG/2.5 ML ORAL LIQUID PEG SCH (09:01)
[2023-06-04] MEDS: levETIRAcetam 500 MG/5 ML INJECTION VIAL IVPB SCH ×2 (09:01→21:58)
[2023-06-04] MEDS: LIDOCAINE 4% PATCH TP SCH (09:01)
[2023-06-04] MEDS: MUPIROCIN 2% TOPICAL OINTMENT FOR DECOLONIZATION NS SCH (09:02)
[2023-06-04] MEDS: LACTOBACILLUS ACIDOPHILUS 1 TABLET GT SCH (09:02)
[2023-06-04] MEDS: POTASSIUM CHLORIDE ORAL LIQUID 20 MEQ/15 ML GT SCH ×2 (09:02→21:59)
[2023-06-04] MEDS: ASPIRIN 81 MG CHEWABLE TABLETS GT SCH (09:02)
[2023-06-04] MEDS: MIDODRINE HCL 5 MG TABLET PO SCH ×3 (09:03→17:45)
[2023-06-04] MEDS ORDERED: SODIUM CHLORIDE 250 ML IV PRN (19:56)
[2023-06-04] MEDS: LIDOCAINE PATCH REMOVAL MC SCH (21:58)
[2023-06-04] MEDS: CHLORHEXIDINE GLUCONATE 4% CLEANSER FOR DECOLONIZATION TP SCH (21:58)
[2023-06-04] MEDS: ATORVASTATIN CA 40 MG TABLET (FP) GT SCH (21:59)
[2023-06-05] MEDS: PIPERACILLIN/TAZOB 2.25 GM 2.25 GM in DEXTROSE 5%-WATER - 50 ML IVPB SCH ×3 (01:40→17:21)
[2023-06-05 06:27] LABS: HEMOGLOBIN 7.4 GM/dL (10.7-15.3); MCH 29.4 pg (25.7-33.7); MCHC 32.2 g/dl (32.0-36.0); MEAN CELL VOLUME 91.2 fl (80-96); MEAN PLT VOLUME 8.1 fl (7.5-11.1); PLATELET COUNT 257 10^3/uL (134-434); RBC 2.52 M/mm3 (3.60-5.2); RDW 17.2 % (11.6-15.6); WHITE BLOOD COUNT 12.7 K/mm3 (4.0-10.0)
[2023-06-05 08:32] LABS: ANISOCYTOSIS 1+; MACROCYTOSIS 0
[2023-06-05] MEDS: LACTOBACILLUS ACIDOPHILUS 1 TABLET GT SCH (09:46)
[2023-06-05] MEDS: ASPIRIN 81 MG CHEWABLE TABLETS GT SCH (09:46)
[2023-06-05] MEDS: levETIRAcetam 500 MG/5 ML INJECTION VIAL IVPB SCH ×2 (09:46→21:32)
[2023-06-05] MEDS: POTASSIUM CHLORIDE ORAL LIQUID 20 MEQ/15 ML GT SCH ×2 (09:46→21:32)
[2023-06-05] MEDS: MIDODRINE HCL 5 MG TABLET PO SCH ×3 (09:47→17:16)
[2023-06-05] MEDS: LIDOCAINE 4% PATCH TP SCH (09:47)
[2023-06-05] MEDS: FAMOTIDINE 20 MG/2.5 ML ORAL LIQUID PEG SCH (11:45)
[2023-06-05 13:54] LABS: HEMATOCRIT 22.6 % (32.4-45.2); HEMOGLOBIN 7.2 GM/dL (10.7-15.3); MCH 28.9 pg (25.7-33.7); MCHC 31.8 g/dl (32.0-36.0); MEAN CELL VOLUME 90.9 fl (80-96); MEAN PLT VOLUME 8.1 fl (7.5-11.1); PLATELET COUNT 271 10^3/uL (134-434); RBC 2.48 M/mm3 (3.60-5.2); RDW 17.4 % (11.6-15.6); WHITE BLOOD COUNT 12.7 K/mm3 (4.0-10.0)
[2023-06-05] MEDS ORDERED: EPOETIN ALFA-EPBX 10,000 UNIT/ML VIAL IVPUSH ONE (14:00)
[2023-06-05] MEDS: LIDOCAINE PATCH REMOVAL MC SCH (21:33)
[2023-06-05] MEDS: ATORVASTATIN CA 40 MG TABLET (FP) GT SCH (21:33)
[2023-06-05] MEDS: CHLORHEXIDINE GLUCONATE 4% CLEANSER FOR DECOLONIZATION TP SCH (21:33)
[2023-06-06] MEDS: PIPERACILLIN/TAZOB 2.25 GM 2.25 GM in DEXTROSE 5%-WATER - 50 ML IVPB SCH ×3 (02:30→17:25)
[2023-06-06] MEDS: levETIRAcetam 500 MG/5 ML INJECTION VIAL IVPB SCH ×2 (10:23→22:20)
[2023-06-06] MEDS: MIDODRINE HCL 5 MG TABLET PO SCH ×4 (10:24→17:22)
[2023-06-06] MEDS: POTASSIUM CHLORIDE ORAL LIQUID 20 MEQ/15 ML GT SCH ×2 (10:24→22:20)
[2023-06-06] MEDS: FAMOTIDINE 20 MG/2.5 ML ORAL LIQUID PEG SCH (10:24)
[2023-06-06] MEDS: ASPIRIN 81 MG CHEWABLE TABLETS GT SCH (10:24)
[2023-06-06] MEDS: LIDOCAINE 4% PATCH TP SCH (10:24)
[2023-06-06] MEDS: LACTOBACILLUS ACIDOPHILUS 1 TABLET GT SCH (10:24)
[2023-06-06] MEDS ORDERED: LOPERAMIDE HCL 1 MG/5 ML UNIT DOSE CUP PO ONE (18:18)
[2023-06-06] MEDS: CHLORHEXIDINE GLUCONATE 4% CLEANSER FOR DECOLONIZATION TP SCH (22:17)
[2023-06-06] MEDS: LIDOCAINE PATCH REMOVAL MC SCH (22:17)
[2023-06-06] MEDS: ATORVASTATIN CA 40 MG TABLET (FP) GT SCH (22:20)
[2023-06-07] MEDS: PIPERACILLIN/TAZOB 2.25 GM 2.25 GM in DEXTROSE 5%-WATER - 50 ML IVPB SCH ×3 (02:20→17:07)
[2023-06-07] MEDS: POTASSIUM CHLORIDE ORAL LIQUID 20 MEQ/15 ML GT SCH ×2 (09:28→22:58)
[2023-06-07] MEDS: levETIRAcetam 500 MG/5 ML INJECTION VIAL IVPB SCH ×2 (09:28→22:58)
[2023-06-07] MEDS: MIDODRINE HCL 5 MG TABLET PO SCH ×3 (09:28→17:07)
[2023-06-07] MEDS: LIDOCAINE 4% PATCH TP SCH (09:28)
[2023-06-07] MEDS: ASPIRIN 81 MG CHEWABLE TABLETS GT SCH (09:28)
[2023-06-07] MEDS: FAMOTIDINE 20 MG/2.5 ML ORAL LIQUID PEG SCH (09:28)
[2023-06-07] MEDS: LACTOBACILLUS ACIDOPHILUS 1 TABLET GT SCH (09:28)
[2023-06-07] MEDS ORDERED: SODIUM CHLORIDE 250 ML IV PRN (10:00)
[2023-06-07] MEDS ORDERED: EPOETIN ALFA-EPBX 10,000 UNIT/ML VIAL IVPUSH ONE (11:00)
[2023-06-07] MEDS ORDERED: FLUCONAZOLE 40 MG/ML SUSPENSION PO SCH (18:00)
[2023-06-07] MEDS: LIDOCAINE PATCH REMOVAL MC SCH (22:58)
[2023-06-07] MEDS: CHLORHEXIDINE GLUCONATE 4% CLEANSER FOR DECOLONIZATION TP SCH (22:58)
[2023-06-07] MEDS: ATORVASTATIN CA 40 MG TABLET (FP) GT SCH (22:58)
[2023-06-08] MEDS: PIPERACILLIN/TAZOB 2.25 GM 2.25 GM in DEXTROSE 5%-WATER - 50 ML IVPB SCH ×3 (02:54→17:48)
[2023-06-08 06:59] LABS: HEMATOCRIT 24.1 % (32.4-45.2); HEMOGLOBIN 8.1 GM/dL (10.7-15.3); MCH 30.5 pg (25.7-33.7); MCHC 33.7 g/dl (32.0-36.0); MEAN CELL VOLUME 90.5 fl (80-96); MEAN PLT VOLUME 7.7 fl (7.5-11.1); PLATELET COUNT 329 10^3/uL (134-434); RBC 2.66 M/mm3 (3.60-5.2); RDW 17.6 % (11.6-15.6); WHITE BLOOD COUNT 8.8 K/mm3 (4.0-10.0)
[2023-06-08 07:24] LABS: POTASSIUM 4.8 mmol/L (3.5-5.1)
[2023-06-08 07:32] LABS: ALBUMIN 1.8 g/dl (3.4-5.0); CALCIUM 9.4 mg/dL (8.5-10.1)
[2023-06-08 07:36] LABS: CREATININE 1.8 mg/dL (0.55-1.3)
[2023-06-08 07:37] LABS: BILIRUBIN,TOTAL 0.2 mg/dL (0.2-1)
[2023-06-08 07:39] LABS: TOT PROT 7.4 g/dl (6.4-8.2)
[2023-06-08 07:52] LABS: BLOOD UREA NITROGEN 21.3 mg/dL (7-18)
[2023-06-08] MEDS: MIDODRINE HCL 5 MG TABLET PO SCH ×3 (09:29→17:33)
[2023-06-08] MEDS: levETIRAcetam 500 MG/5 ML INJECTION VIAL IVPB SCH ×2 (09:29→21:50)
[2023-06-08] MEDS: LIDOCAINE 4% PATCH TP SCH (09:30)
[2023-06-08] MEDS: POTASSIUM CHLORIDE ORAL LIQUID 20 MEQ/15 ML GT SCH ×2 (09:30→21:50)
[2023-06-08] MEDS: ASPIRIN 81 MG CHEWABLE TABLETS GT SCH (09:30)
[2023-06-08] MEDS: LACTOBACILLUS ACIDOPHILUS 1 TABLET GT SCH (09:30)
[2023-06-08] MEDS: FAMOTIDINE 20 MG/2.5 ML ORAL LIQUID PEG SCH (09:30)
[2023-06-08] MEDS: ATORVASTATIN CA 40 MG TABLET (FP) GT SCH (21:50)
[2023-06-08] MEDS: LIDOCAINE PATCH REMOVAL MC SCH (21:50)
[2023-06-08] MEDS: CHLORHEXIDINE GLUCONATE 4% CLEANSER FOR DECOLONIZATION TP SCH (21:51)
[2023-06-09] MEDS: PIPERACILLIN/TAZOB 2.25 GM 2.25 GM in DEXTROSE 5%-WATER - 50 ML IVPB SCH ×3 (03:02→17:55)
[2023-06-09] MEDS: levETIRAcetam 500 MG/5 ML INJECTION VIAL IVPB SCH ×2 (09:10→21:50)
[2023-06-09] MEDS: ASPIRIN 81 MG CHEWABLE TABLETS GT SCH (09:10)
[2023-06-09] MEDS: guaiFENesin 200 MG/10 ML 10 ML UNIT-DOSE CUPS GT PRN ×2 (09:10→21:49)
[2023-06-09] MEDS: LACTOBACILLUS ACIDOPHILUS 1 TABLET GT SCH (09:10)
[2023-06-09] MEDS: POTASSIUM CHLORIDE ORAL LIQUID 20 MEQ/15 ML GT SCH (09:10)
[2023-06-09] MEDS: LIDOCAINE 4% PATCH TP SCH (09:11)
[2023-06-09] MEDS ORDERED: SODIUM CHLORIDE 250 ML IV PRN (09:53)
[2023-06-09] MEDS ORDERED: EPOETIN ALFA-EPBX 4,000 UNIT/ML VIAL SQ ONE (09:53)
[2023-06-09] MEDS ORDERED: ACETAMINOPHEN 1000 MG/100 ML BAG IVPB ONE ×2 (10:00→17:41)
[2023-06-09] MEDS: FAMOTIDINE 20 MG/2.5 ML ORAL LIQUID PEG SCH (12:00)
[2023-06-09 12:05] LABS: BASO % 1.2 % (0-2.0); EOS % 0.1 % (0-4.5); HEMATOCRIT 24.5 % (32.4-45.2); LYMPH % 3.1 % (8-40); MCH 29.8 pg (25.7-33.7); MCHC 32.7 g/dl (32.0-36.0); MEAN CELL VOLUME 91.1 fl (80-96); MEAN PLT VOLUME 7.8 fl (7.5-11.1); MONO % 5.8 % (3.8-10.2); NEUT % 89.8 % (42.8-82.8); PLATELET COUNT 320 10^3/uL (134-434); RBC 2.69 M/mm3 (3.60-5.2); RDW 17.5 % (11.6-15.6); WHITE BLOOD COUNT 8.7 K/mm3 (4.0-10.0)
[2023-06-09 12:27] LABS: CHLORIDE 107 mmol/L (98-107); SODIUM 139 mmol/L (136-145)
[2023-06-09 12:34] LABS: CALCIUM 9.5 mg/dL (8.5-10.1); GLUCOSE,RANDOM 134 mg/dL (74-106)
[2023-06-09 12:35] LABS: ALBUMIN 1.7 g/dl (3.4-5.0); BLOOD UREA NITROGEN 43.1 mg/dL (7-18); CO2 29 mmol/L (21-32); MAGNESIUM 1.5 mg/dL (1.8-2.4)
[2023-06-09 12:38] LABS: CREATININE 2.9 mg/dL (0.55-1.3); PHOSPHOROUS 1.7 mg/dL (2.5-4.9); SGOT/AST 70 U/L (15-37); SGPT/ALT 47 U/L (13-61)
[2023-06-09 12:39] LABS: BILIRUBIN,TOTAL 0.2 mg/dL (0.2-1); TOT PROT 7.6 g/dl (6.4-8.2)
[2023-06-09 12:46] LABS: ALK PHOS 182 U/L (45-117); ANION GAP 3 mmol/L (4-13); POTASSIUM 7.8 mmol/L (3.5-5.1)
[2023-06-09] MEDS ORDERED: SODIUM POLYSTYRENE SULFONATE 15 GM/60 ML BOTTLE PO ONE (16:15)
[2023-06-09] MEDS ORDERED: SODIUM CHLORIDE 500 ML IV STA (17:09)
[2023-06-09] MEDS ORDERED: ALBUTEROL SO4 0.083% IH SOL 2.5 MG/3 ML VIAL.NEB. NEB PRN (17:23)
[2023-06-09] MEDS ORDERED: METOPROLOL TARTRATE 5 MG/5 ML VIAL IVPUSH ONE (17:32)
[2023-06-09] MEDS ORDERED: ALBUTEROL SULFATE 0.021% (0.63 MG/3 ML) VIAL.NEB NEB SCH (20:00)
[2023-06-09] MEDS: ATORVASTATIN CA 40 MG TABLET (FP) GT SCH (21:50)
[2023-06-09] MEDS: LIDOCAINE PATCH REMOVAL MC SCH (21:50)
[2023-06-09] MEDS: CHLORHEXIDINE GLUCONATE 4% CLEANSER FOR DECOLONIZATION TP SCH (21:50)
[2023-06-10] MEDS: PIPERACILLIN/TAZOB 2.25 GM 2.25 GM in DEXTROSE 5%-WATER - 50 ML IVPB SCH ×3 (01:34→17:36)
[2023-06-10] MEDS ORDERED: ACETAMINOPHEN 1000 MG/100 ML BAG IVPB ONE (06:45)
[2023-06-10] MEDS ORDERED: guaiFENesin 200 MG/10 ML 10 ML UNIT-DOSE CUPS GT PRN (07:34)
[2023-06-10] MEDS ORDERED: BISACODYL 10 MG SUPP.RECT RC PRN (07:34)
[2023-06-10] MEDS ORDERED: ALBUTEROL SO4 0.083% IH SOL 2.5 MG/3 ML VIAL.NEB. NEB PRN (07:34)
[2023-06-10] MEDS ORDERED: LIDOCAINE PATCH REMOVAL MC SCH (07:34)
[2023-06-10] MEDS ORDERED: SODIUM CHLORIDE 250 ML IV PRN (09:06)
[2023-06-10] MEDS ORDERED: EPOETIN ALFA-EPBX 4,000 UNIT/ML VIAL SQ ONE (09:15)
[2023-06-10 09:31] LABS: HEMATOCRIT 28.7 % (32.4-45.2); MCH 28.7 pg (25.7-33.7); MCHC 31.5 g/dl (32.0-36.0); MEAN CELL VOLUME 91.3 fl (80-96); MEAN PLT VOLUME 7.7 fl (7.5-11.1); PLATELET COUNT 256 10^3/uL (134-434); RBC 3.14 M/mm3 (3.60-5.2); RDW 17.8 % (11.6-15.6); WHITE BLOOD COUNT 12.7 K/mm3 (4.0-10.0)
[2023-06-10] MEDS: MIDODRINE HCL 5 MG TABLET PO SCH ×3 (09:32→17:36)
[2023-06-10] MEDS: ASPIRIN 81 MG CHEWABLE TABLETS GT SCH (09:35)
[2023-06-10] MEDS: FAMOTIDINE 20 MG/2.5 ML ORAL LIQUID PEG SCH (09:35)
[2023-06-10] MEDS: LACTOBACILLUS ACIDOPHILUS 1 TABLET GT SCH (09:35)
[2023-06-10 09:56] LABS: POTASSIUM 5.8 mmol/L (3.5-5.1)
[2023-06-10 09:58] LABS: ALBUMIN 1.7 g/dl (3.4-5.0); BLOOD UREA NITROGEN 39.6 mg/dL (7-18); CALCIUM 9.7 mg/dL (8.5-10.1)
[2023-06-10] MEDS ORDERED: levETIRAcetam 500 MG/5 ML INJECTION VIAL IVPB SCH (10:00)
[2023-06-10 10:01] LABS: CREATININE 2.5 mg/dL (0.55-1.3)
[2023-06-10 10:02] LABS: BILIRUBIN,TOTAL 0.3 mg/dL (0.2-1); TOT PROT 7.6 g/dl (6.4-8.2)
[2023-06-10 10:04] LABS: ANISOCYTOSIS 0; HELMET CELLS 0; HOWELL-JOLLY BODIES 0; MACROCYTOSIS 0; OVALOCYTE 0; ROULEAU 0; SICKELED CELLS 0; TARGET CELLS 0; TEAR DROP CELLS 0; TOXIC GRANULATION 0
[2023-06-10] MEDS: LIDOCAINE 4% PATCH TP SCH (10:43)
[2023-06-10] MEDS: MUPIROCIN 2% TOPICAL OINTMENT FOR DECOLONIZATION NS SCH ×2 (10:44→21:10)
[2023-06-10] MEDS: ALBUTEROL SO4 2.5/IPRATROPIUM 0.5 INH SOL 3 ML VIAL.NEB. NEB SCH ×3 (12:03→21:01)
[2023-06-10] MEDS ORDERED: FLUCONAZOLE 40 MG/ML SUSPENSION GT SCH (18:00)
[2023-06-10] MEDS: ATORVASTATIN CA 40 MG TABLET (FP) GT SCH (21:09)
[2023-06-10] MEDS: LIDOCAINE PATCH REMOVAL MC SCH (21:09)
[2023-06-10] MEDS: levETIRAcetam 500 MG/5 ML ORAL SOLUTION (UNIT-DOSE CUPS) GT SCH (21:09)
[2023-06-10] MEDS: CHLORHEXIDINE GLUCONATE 4% CLEANSER FOR DECOLONIZATION TP SCH (21:09)
[2023-06-11] MEDS: PIPERACILLIN/TAZOB 2.25 GM 2.25 GM in DEXTROSE 5%-WATER - 50 ML IVPB SCH ×2 (01:04→09:46)
[2023-06-11] MEDS: ALBUTEROL SO4 2.5/IPRATROPIUM 0.5 INH SOL 3 ML VIAL.NEB. NEB SCH ×4 (07:55→20:35)
[2023-06-11] MEDS: ASPIRIN 81 MG CHEWABLE TABLETS GT SCH (09:46)
[2023-06-11] MEDS: LACTOBACILLUS ACIDOPHILUS 1 TABLET GT SCH (09:46)
[2023-06-11] MEDS: LIDOCAINE 4% PATCH TP SCH (09:46)
[2023-06-11] MEDS: levETIRAcetam 500 MG/5 ML ORAL SOLUTION (UNIT-DOSE CUPS) GT SCH ×2 (09:46→21:13)
[2023-06-11] MEDS: MIDODRINE HCL 5 MG TABLET PO SCH ×3 (09:46→17:10)
[2023-06-11] MEDS: FAMOTIDINE 20 MG/2.5 ML ORAL LIQUID PEG SCH (09:47)
[2023-06-11] MEDS: MUPIROCIN 2% TOPICAL OINTMENT FOR DECOLONIZATION NS SCH ×2 (09:50→21:14)
[2023-06-11 10:57] LABS: ARTERIAL BLOOD GAS BASE EXCESS -0.1 mmol/L (-2-2); ARTERIAL BLOOD GAS PO2 176.2 mmHg (80-100); ARTERIAL BLOOD GAS pH 7.296 (7.350-7.450)
[2023-06-11 11:11] LABS: HEMATOCRIT 27.7 % (32.4-45.2); HEMOGLOBIN 8.6 GM/dL (10.7-15.3); MCH 28.4 pg (25.7-33.7); MEAN CELL VOLUME 91.9 fl (80-96); MEAN PLT VOLUME 8.1 fl (7.5-11.1); PLATELET COUNT 240 10^3/uL (134-434); RBC 3.02 M/mm3 (3.60-5.2); RDW 18.4 % (11.6-15.6); WHITE BLOOD COUNT 11.9 K/mm3 (4.0-10.0)
[2023-06-11 11:14] LABS: ALLENS TEST POSITIVE
[2023-06-11 11:15] LABS: VENT MODE A/C; VENT RATE 20
[2023-06-11 11:36] LABS: POTASSIUM 4.9 mmol/L (3.5-5.1)
[2023-06-11 11:38] LABS: CALCIUM 9.1 mg/dL (8.5-10.1)
[2023-06-11 11:39] LABS: ALBUMIN 1.6 g/dl (3.4-5.0); BLOOD UREA NITROGEN 32.1 mg/dL (7-18)
[2023-06-11 11:42] LABS: CREATININE 2.5 mg/dL (0.55-1.3)
[2023-06-11 11:43] LABS: BILIRUBIN,TOTAL 0.3 mg/dL (0.2-1)
[2023-06-11 11:45] LABS: TOT PROT 7.3 g/dl (6.4-8.2)
[2023-06-11] MEDS ORDERED: morphine SULFATE 4 MG/ML VIAL ONE (12:29)
[2023-06-11] MEDS: METOPROLOL TARTRATE 5 MG/5 ML VIAL IVPUSH PRN ×2 (12:37→21:13)
[2023-06-11] MEDS ORDERED: morphine SULFATE 4 MG/ML VIAL IVPUSH ONE (12:45)
[2023-06-11] MEDS ORDERED: CASPOFUNGIN ACETATE 70 MG in SODIUM CHLORIDE 250 ML IVPB ONE (14:00)
[2023-06-11] MEDS ORDERED: SODIUM CHLORIDE 250 ML IV PRN (14:07)
[2023-06-11] MEDS ORDERED: DAPTOMYCIN 600 MG in SODIUM CHLORIDE 50 ML IVPB ONE (14:30)
[2023-06-11] MEDS: MEROPENEM 1 GM in DEXTROSE 5%-WATER 100 ML IVPB SCH (14:31)
[2023-06-11] MEDS: CHLORHEXIDINE GLUCONATE 4% CLEANSER FOR DECOLONIZATION TP SCH (21:12)
[2023-06-11] MEDS: ATORVASTATIN CA 40 MG TABLET (FP) GT SCH (21:13)
[2023-06-11] MEDS: LIDOCAINE PATCH REMOVAL MC SCH (21:13)
[2023-06-12 00:44] LABS: ARTERIAL BLD GAS O2 SATURATION 86.7 % (95-98); ARTERIAL BLOOD GAS BASE EXCESS 2.6 mmol/L (-2-2); ARTERIAL BLOOD GAS PO2 56.3 mmHg (80-100); ARTERIAL BLOOD GAS pH 7.332 (7.350-7.450)
[2023-06-12 00:46] LABS: ALLENS TEST POSITIVE
[2023-06-12 00:47] LABS: VENT MODE A/C; VENT RATE 20
[2023-06-12] MEDS: PROPOFOL 1,000,000 MCG/100 ML VIAL IVPB SCH ×3 (01:25→17:29)
[2023-06-12] MEDS: METOPROLOL TARTRATE 5 MG/5 ML VIAL IVPUSH PRN (01:28)
[2023-06-12] MEDS: ALBUTEROL SO4 2.5/IPRATROPIUM 0.5 INH SOL 3 ML VIAL.NEB. NEB SCH ×4 (08:10→20:48)
[2023-06-12 08:29] LABS: HEMATOCRIT 26.7 % (32.4-45.2); HEMOGLOBIN 8.2 GM/dL (10.7-15.3); MCH 27.9 pg (25.7-33.7); MCHC 30.7 g/dl (32.0-36.0); MEAN PLT VOLUME 8.7 fl (7.5-11.1); PLATELET COUNT 216 10^3/uL (134-434); RBC 2.94 M/mm3 (3.60-5.2); RDW 18.3 % (11.6-15.6); WHITE BLOOD COUNT 12.9 K/mm3 (4.0-10.0)
[2023-06-12 08:30] LABS: POTASSIUM 4.7 mmol/L (3.5-5.1)
[2023-06-12 08:37] LABS: ALBUMIN 1.5 g/dl (3.4-5.0); BLOOD UREA NITROGEN 45.3 mg/dL (7-18); PHOSPHOROUS 3.3 mg/dL (2.5-4.9)
[2023-06-12 08:39] LABS: BILIRUBIN,TOTAL 0.4 mg/dL (0.2-1); TOT PROT 6.8 g/dl (6.4-8.2)
[2023-06-12 08:40] LABS: CALCIUM 9.3 mg/dL (8.5-10.1); CREATININE 3.2 mg/dL (0.55-1.3); MAGNESIUM 1.7 mg/dL (1.8-2.4)
[2023-06-12 09:25] LABS: ANISOCYTOSIS 0; MACROCYTOSIS 0
[2023-06-12] MEDS: FAMOTIDINE 20 MG/2.5 ML ORAL LIQUID PEG SCH (09:49)
[2023-06-12] MEDS: MUPIROCIN 2% TOPICAL OINTMENT FOR DECOLONIZATION NS SCH ×2 (09:50→21:21)
[2023-06-12] MEDS: MEROPENEM 1 GM in DEXTROSE 5%-WATER 100 ML IVPB SCH (09:50)
[2023-06-12] MEDS: ASPIRIN 81 MG CHEWABLE TABLETS GT SCH (09:50)
[2023-06-12] MEDS: LIDOCAINE 4% PATCH TP SCH (09:50)
[2023-06-12] MEDS: LACTOBACILLUS ACIDOPHILUS 1 TABLET GT SCH (09:50)
[2023-06-12] MEDS: levETIRAcetam 500 MG/5 ML ORAL SOLUTION (UNIT-DOSE CUPS) GT SCH ×2 (09:50→21:20)
[2023-06-12] MEDS: MIDODRINE HCL 5 MG TABLET PO SCH ×3 (09:51→17:28)
[2023-06-12] MEDS ORDERED: MAGNESIUM SULF 50% (8.12 MEQ/2 ML-1 GM VIAL) IVPB ONE (11:45)
[2023-06-12] MEDS: CASPOFUNGIN ACETATE 50 MG in SODIUM CHLORIDE 250 ML IVPB SCH (14:35)
[2023-06-12] MEDS ORDERED: morphine CARPU-JECT 4 MG/1 ML DISP.SYRIN IVPUSH ONE (14:43)
[2023-06-12] MEDS ORDERED: morphine SULFATE 4 MG/ML VIAL ONE (14:45)
[2023-06-12] MEDS: ATORVASTATIN CA 40 MG TABLET (FP) GT SCH (21:20)
[2023-06-12] MEDS: LIDOCAINE PATCH REMOVAL MC SCH (21:20)
[2023-06-12] MEDS: CHLORHEXIDINE GLUCONATE 4% CLEANSER FOR DECOLONIZATION TP SCH (21:20)
[2023-06-12 23:29] LABS: ARTERIAL BLD GAS O2 SATURATION 99.6 % (95-98); ARTERIAL BLOOD GAS BASE EXCESS 7.5 mmol/L (-2-2); ARTERIAL BLOOD GAS PO2 245.9 mmHg (80-100); ARTERIAL BLOOD GAS pH 7.419 (7.350-7.450)
[2023-06-12 23:33] LABS: VENT MODE AC; VENT RATE 30
[2023-06-13] MEDS: PROPOFOL 1,000,000 MCG/100 ML VIAL IVPB SCH (06:23)
[2023-06-13 06:30] LABS: ARTERIAL BLD GAS O2 SATURATION 99.5 % (95-98); ARTERIAL BLOOD GAS BASE EXCESS 6.1 mmol/L (-2-2); ARTERIAL BLOOD GAS PO2 223.4 mmHg (80-100); ARTERIAL BLOOD GAS pH 7.417 (7.350-7.450)
[2023-06-13 07:00] LABS: VENT MODE AC; VENT RATE 30
[2023-06-13 07:24] LABS: HEMATOCRIT 24.2 % (32.4-45.2); HEMOGLOBIN 7.5 GM/dL (10.7-15.3); MCH 28.1 pg (25.7-33.7); MCHC 30.9 g/dl (32.0-36.0); MEAN PLT VOLUME 8.9 fl (7.5-11.1); PLATELET COUNT 169 10^3/uL (134-434); RBC 2.66 M/mm3 (3.60-5.2); RDW 18.4 % (11.6-15.6); WHITE BLOOD COUNT 14.7 K/mm3 (4.0-10.0)
[2023-06-13 07:46] LABS: POTASSIUM 3.7 mmol/L (3.5-5.1)
[2023-06-13 07:52] LABS: ALBUMIN 1.3 g/dl (3.4-5.0); BLOOD UREA NITROGEN 29.5 mg/dL (7-18); PHOSPHOROUS 2.5 mg/dL (2.5-4.9)
[2023-06-13 07:53] LABS: TOT PROT 6.4 g/dl (6.4-8.2)
[2023-06-13 07:54] LABS: BILIRUBIN,TOTAL 0.3 mg/dL (0.2-1)
[2023-06-13 07:55] LABS: CALCIUM 8.2 mg/dL (8.5-10.1); CREATININE 2.2 mg/dL (0.55-1.3); MAGNESIUM 1.9 mg/dL (1.8-2.4)
[2023-06-13] MEDS: ALBUTEROL SO4 2.5/IPRATROPIUM 0.5 INH SOL 3 ML VIAL.NEB. NEB SCH ×4 (08:10→21:00)
[2023-06-13] MEDS: ASPIRIN 81 MG CHEWABLE TABLETS GT SCH (09:44)
[2023-06-13] MEDS: levETIRAcetam 500 MG/5 ML ORAL SOLUTION (UNIT-DOSE CUPS) GT SCH ×2 (09:44→21:15)
[2023-06-13] MEDS: MEROPENEM 1 GM in DEXTROSE 5%-WATER 100 ML IVPB SCH (09:44)
[2023-06-13] MEDS: FAMOTIDINE 20 MG/2.5 ML ORAL LIQUID PEG SCH (09:44)
[2023-06-13] MEDS: LACTOBACILLUS ACIDOPHILUS 1 TABLET GT SCH (09:44)
[2023-06-13] MEDS: MIDODRINE HCL 5 MG TABLET PO SCH ×3 (09:45→17:37)
[2023-06-13] MEDS: MUPIROCIN 2% TOPICAL OINTMENT FOR DECOLONIZATION NS SCH ×2 (09:46→21:16)
[2023-06-13] MEDS: LIDOCAINE 4% PATCH TP SCH (09:46)
[2023-06-13] MEDS ORDERED: EPOETIN ALFA-EPBX 10,000 UNIT/ML VIAL SQ ONE (12:04)
[2023-06-13] MEDS ORDERED: SODIUM CHLORIDE 250 ML IV PRN (12:04)
[2023-06-13] MEDS: CASPOFUNGIN ACETATE 50 MG in SODIUM CHLORIDE 250 ML IVPB SCH (15:27)
[2023-06-13] MEDS: METOPROLOL TARTRATE 5 MG/5 ML VIAL IVPUSH PRN (16:05)
[2023-06-13] MEDS ORDERED: ALBUTEROL SO4 0.083% IH SOL 2.5 MG/3 ML VIAL.NEB. NEB PRN (19:30)
[2023-06-13] MEDS ORDERED: BISACODYL 10 MG SUPP.RECT RC PRN (19:30)
[2023-06-13] MEDS ORDERED: guaiFENesin 200 MG/10 ML 10 ML UNIT-DOSE CUPS GT PRN (19:30)
[2023-06-13] MEDS: ATORVASTATIN CA 40 MG TABLET (FP) GT SCH (21:15)
[2023-06-13] MEDS: CHLORHEXIDINE GLUCONATE 4% CLEANSER FOR DECOLONIZATION TP SCH (21:16)
[2023-06-13] MEDS: LIDOCAINE PATCH REMOVAL MC SCH (21:16)
[2023-06-14 06:20] LABS: ARTERIAL BLD GAS O2 SATURATION 98.6 % (95-98); ARTERIAL BLOOD GAS BASE EXCESS 2.9 mmol/L (-2-2); ARTERIAL BLOOD GAS PO2 139.1 mmHg (80-100); ARTERIAL BLOOD GAS pH 7.342 (7.350-7.450)
[2023-06-14 06:22] LABS: VENT MODE A/C; VENT RATE 14
[2023-06-14 07:17] LABS: HEMATOCRIT 25.7 % (32.4-45.2); MCH 28.5 pg (25.7-33.7); MCHC 31.4 g/dl (32.0-36.0); MEAN CELL VOLUME 90.8 fl (80-96); MEAN PLT VOLUME 8.7 fl (7.5-11.1); PLATELET COUNT 210 10^3/uL (134-434); RBC 2.82 M/mm3 (3.60-5.2); RDW 18.5 % (11.6-15.6); WHITE BLOOD COUNT 21.5 K/mm3 (4.0-10.0)
[2023-06-14 07:31] LABS: POTASSIUM 3.7 mmol/L (3.5-5.1)
[2023-06-14 07:36] LABS: CALCIUM 9.3 mg/dL (8.5-10.1)
[2023-06-14 07:37] LABS: ALBUMIN 1.5 g/dl (3.4-5.0); BLOOD UREA NITROGEN 44.1 mg/dL (7-18); MAGNESIUM 1.6 mg/dL (1.8-2.4)
[2023-06-14 07:39] LABS: CREATININE 2.9 mg/dL (0.55-1.3); PHOSPHOROUS 3.3 mg/dL (2.5-4.9)
[2023-06-14 07:41] LABS: BILIRUBIN,TOTAL 0.4 mg/dL (0.2-1); TOT PROT 6.9 g/dl (6.4-8.2)
[2023-06-14] MEDS: ALBUTEROL SO4 2.5/IPRATROPIUM 0.5 INH SOL 3 ML VIAL.NEB. NEB SCH ×4 (07:50→21:15)
[2023-06-14] MEDS ORDERED: SODIUM CHLORIDE 250 ML IV PRN (08:09)
[2023-06-14 08:40] LABS: ANISOCYTOSIS 0; MACROCYTOSIS 0
[2023-06-14] MEDS ORDERED: EPOETIN ALFA-EPBX 10,000 UNIT/ML VIAL SQ ONE (08:45)
[2023-06-14] MEDS: METOPROLOL TARTRATE 5 MG/5 ML VIAL IVPUSH PRN (09:21)
[2023-06-14] MEDS: levETIRAcetam 500 MG/5 ML ORAL SOLUTION (UNIT-DOSE CUPS) GT SCH ×2 (11:22→21:08)
[2023-06-14] MEDS: LACTOBACILLUS ACIDOPHILUS 1 TABLET GT SCH (11:23)
[2023-06-14] MEDS: ASPIRIN 81 MG CHEWABLE TABLETS GT SCH (11:23)
[2023-06-14] MEDS: LIDOCAINE 4% PATCH TP SCH (11:24)
[2023-06-14] MEDS: MUPIROCIN 2% TOPICAL OINTMENT FOR DECOLONIZATION NS SCH ×2 (11:24→21:08)
[2023-06-14] MEDS: MEROPENEM 1 GM in DEXTROSE 5%-WATER 100 ML IVPB SCH (11:25)
[2023-06-14] MEDS: FAMOTIDINE 20 MG/2.5 ML ORAL LIQUID PEG SCH (12:28)
[2023-06-14] MEDS: MIDODRINE HCL 5 MG TABLET PO SCH ×3 (12:29→18:08)
[2023-06-14] MEDS: CASPOFUNGIN ACETATE 50 MG in SODIUM CHLORIDE 250 ML IVPB SCH (15:49)
[2023-06-14] MEDS ORDERED: SODIUM CHLORIDE 0.9% 500 ML INFUS.BAG IV ONE (17:53)
[2023-06-14] MEDS: ATORVASTATIN CA 40 MG TABLET (FP) GT SCH (21:08)
[2023-06-14] MEDS: LIDOCAINE PATCH REMOVAL MC SCH ×2 (21:08→21:30)
[2023-06-14] MEDS: CHLORHEXIDINE GLUCONATE 4% CLEANSER FOR DECOLONIZATION TP SCH (21:08)
[2023-06-15] MEDS: METOPROLOL TARTRATE 5 MG/5 ML VIAL IVPUSH PRN (04:56)
[2023-06-15] MEDS: ALBUTEROL SO4 2.5/IPRATROPIUM 0.5 INH SOL 3 ML VIAL.NEB. NEB SCH ×4 (08:37→20:35)
[2023-06-15] MEDS: FAMOTIDINE 20 MG/2.5 ML ORAL LIQUID PEG SCH (10:26)
[2023-06-15] MEDS: levETIRAcetam 500 MG/5 ML ORAL SOLUTION (UNIT-DOSE CUPS) GT SCH ×2 (10:26→21:37)
[2023-06-15] MEDS: MEROPENEM 1 GM in DEXTROSE 5%-WATER 100 ML IVPB SCH (10:27)
[2023-06-15] MEDS: LACTOBACILLUS ACIDOPHILUS 1 TABLET GT SCH (10:27)
[2023-06-15] MEDS: LIDOCAINE 4% PATCH TP SCH (10:27)
[2023-06-15] MEDS: MIDODRINE HCL 5 MG TABLET PO SCH ×3 (10:27→17:28)
[2023-06-15] MEDS: ASPIRIN 81 MG CHEWABLE TABLETS GT SCH (10:27)
[2023-06-15] MEDS: CASPOFUNGIN ACETATE 50 MG in SODIUM CHLORIDE 250 ML IVPB SCH (14:07)
[2023-06-15] MEDS: CHLORHEXIDINE GLUCONATE 4% CLEANSER FOR DECOLONIZATION TP SCH (21:37)
[2023-06-15] MEDS: ATORVASTATIN CA 40 MG TABLET (FP) GT SCH (21:37)
[2023-06-15] MEDS: LIDOCAINE PATCH REMOVAL MC SCH (21:37)
[2023-06-16] MEDS ORDERED: DEXTROSE 50%-WATER 25 GM/50 ML DISP.SYRIN ONE (00:58)
[2023-06-16] MEDS: PIPERACILLIN/TAZOB 2.25 GM 2.25 GM in DEXTROSE 5%-WATER - 50 ML IVPB SCH ×3 (01:02→17:25)
[2023-06-16] MEDS: METOPROLOL TARTRATE 5 MG/5 ML VIAL IVPUSH PRN (06:13)
[2023-06-16 06:51] LABS: HEMATOCRIT 23.7 % (32.4-45.2); HEMOGLOBIN 7.3 GM/dL (10.7-15.3); MCH 28.1 pg (25.7-33.7); MEAN CELL VOLUME 90.6 fl (80-96); MEAN PLT VOLUME 8.2 fl (7.5-11.1); PLATELET COUNT 339 10^3/uL (134-434); RBC 2.61 M/mm3 (3.60-5.2); RDW 18.4 % (11.6-15.6); WHITE BLOOD COUNT 15.8 K/mm3 (4.0-10.0)
[2023-06-16 06:54] LABS: INR 1.4 (0.83-1.09); PROTHROMBIN TIME (PATIENT) 16.2 SEC (9.7-13.0)
[2023-06-16 06:56] LABS: ACTIVATED PTT 35.8 SECONDS (25.2-36.5)
[2023-06-16 07:14] LABS: POTASSIUM 3.7 mmol/L (3.5-5.1)
[2023-06-16 07:27] LABS: ALBUMIN 1.4 g/dl (3.4-5.0); CALCIUM 9.5 mg/dL (8.5-10.1)
[2023-06-16 07:28] LABS: BLOOD UREA NITROGEN 36.2 mg/dL (7-18)
[2023-06-16 07:30] LABS: CREATININE 2.6 mg/dL (0.55-1.3)
[2023-06-16 07:32] LABS: BILIRUBIN,TOTAL 0.4 mg/dL (0.2-1); TOT PROT 6.8 g/dl (6.4-8.2)
[2023-06-16] MEDS: ALBUTEROL SO4 2.5/IPRATROPIUM 0.5 INH SOL 3 ML VIAL.NEB. NEB SCH ×4 (07:45→20:23)
[2023-06-16 08:23] LABS: ANISOCYTOSIS 0; HELMET CELLS 0; HOWELL-JOLLY BODIES 0; MACROCYTOSIS 0; OVALOCYTE 0; ROULEAU 0; SICKELED CELLS 0; TARGET CELLS 0; TEAR DROP CELLS 0; TOXIC GRANULATION 0
[2023-06-16] MEDS: ASPIRIN 81 MG CHEWABLE TABLETS GT SCH (09:11)
[2023-06-16] MEDS: LIDOCAINE 4% PATCH TP SCH (09:12)
[2023-06-16] MEDS: FAMOTIDINE 20 MG/2.5 ML ORAL LIQUID PEG SCH (09:13)
[2023-06-16] MEDS: LACTOBACILLUS ACIDOPHILUS 1 TABLET GT SCH (09:13)
[2023-06-16] MEDS: levETIRAcetam 500 MG/5 ML ORAL SOLUTION (UNIT-DOSE CUPS) GT SCH ×2 (09:13→21:54)
[2023-06-16] MEDS: MIDODRINE HCL 5 MG TABLET PO SCH ×3 (09:14→17:27)
[2023-06-16] MEDS: CASPOFUNGIN ACETATE 50 MG in SODIUM CHLORIDE 250 ML IVPB SCH (15:30)
[2023-06-16] MEDS: CHLORHEXIDINE GLUCONATE 4% CLEANSER FOR DECOLONIZATION TP SCH (21:54)
[2023-06-16] MEDS: ATORVASTATIN CA 40 MG TABLET (FP) GT SCH (21:54)
[2023-06-16] MEDS: LIDOCAINE PATCH REMOVAL MC SCH (21:54)
[2023-06-17] MEDS: PIPERACILLIN/TAZOB 2.25 GM 2.25 GM in DEXTROSE 5%-WATER - 50 ML IVPB SCH ×3 (02:27→17:15)
[2023-06-17 07:32] LABS: HEMATOCRIT 25.8 % (32.4-45.2); HEMOGLOBIN 8.3 GM/dL (10.7-15.3); MCH 28.8 pg (25.7-33.7); MCHC 32.1 g/dl (32.0-36.0); MEAN CELL VOLUME 89.8 fl (80-96); MEAN PLT VOLUME 8.1 fl (7.5-11.1); PLATELET COUNT 335 10^3/uL (134-434); RBC 2.87 M/mm3 (3.60-5.2); RDW 17.5 % (11.6-15.6); WHITE BLOOD COUNT 13.3 K/mm3 (4.0-10.0)
[2023-06-17] MEDS: ALBUTEROL SO4 2.5/IPRATROPIUM 0.5 INH SOL 3 ML VIAL.NEB. NEB SCH ×4 (07:40→20:09)
[2023-06-17 07:49] LABS: CALCIUM 8.8 mg/dL (8.5-10.1)
[2023-06-17 07:50] LABS: ALBUMIN 1.3 g/dl (3.4-5.0); BLOOD UREA NITROGEN 42.6 mg/dL (7-18)
[2023-06-17 07:53] LABS: CREATININE 3.3 mg/dL (0.55-1.3)
[2023-06-17 07:55] LABS: BILIRUBIN,TOTAL 0.5 mg/dL (0.2-1); TOT PROT 6.7 g/dl (6.4-8.2)
[2023-06-17] MEDS ORDERED: SODIUM CHLORIDE 250 ML IV PRN (08:19)
[2023-06-17] MEDS ORDERED: EPOETIN ALFA-EPBX 10,000 UNIT/ML VIAL SQ ONE (08:30)
[2023-06-17 09:29] LABS: ANISOCYTOSIS 0; MACROCYTOSIS 0
[2023-06-17] MEDS: MIDODRINE HCL 5 MG TABLET PO SCH ×3 (11:13→17:14)
[2023-06-17] MEDS: FAMOTIDINE 20 MG/2.5 ML ORAL LIQUID PEG SCH (11:13)
[2023-06-17] MEDS: ASPIRIN 81 MG CHEWABLE TABLETS GT SCH (11:13)
[2023-06-17] MEDS: LACTOBACILLUS ACIDOPHILUS 1 TABLET GT SCH (11:13)
[2023-06-17] MEDS: LIDOCAINE 4% PATCH TP SCH (13:26)
[2023-06-17] MEDS: levETIRAcetam 500 MG/5 ML ORAL SOLUTION (UNIT-DOSE CUPS) GT SCH ×2 (13:27→21:44)
[2023-06-17] MEDS: CASPOFUNGIN ACETATE 50 MG in SODIUM CHLORIDE 250 ML IVPB SCH (14:43)
[2023-06-17] MEDS ORDERED: BUPIVACAINE HCL/PF 0.25% (2.5MG/ML) 10 ML VIAL ONE (15:35)
[2023-06-17] MEDS ORDERED: BUPIVACAINE HCL/PF 0.5% (5MG/ML) 10 ML VIAL ONE (15:36)
[2023-06-17] MEDS ORDERED: PROPOFOL 20 ML ONE (16:07)
[2023-06-17] MEDS ORDERED: MIDAZOLAM HCL 2 MG/2 ML SINGLE DOSE VIAL ONE (16:08)
[2023-06-17] MEDS ORDERED: SEVOFLURANE 250 ML BTL ONE (16:08)
[2023-06-17] MEDS ORDERED: ROCURONIUM BROMIDE 50 MG/5 ML SYRINGE ONE (16:11)
[2023-06-17] MEDS: CHLORHEXIDINE GLUCONATE 4% CLEANSER FOR DECOLONIZATION TP SCH (21:44)
[2023-06-17] MEDS: LIDOCAINE PATCH REMOVAL MC SCH (21:44)
[2023-06-17] MEDS: ATORVASTATIN CA 40 MG TABLET (FP) GT SCH (21:44)
[2023-06-18] MEDS: PIPERACILLIN/TAZOB 2.25 GM 2.25 GM in DEXTROSE 5%-WATER - 50 ML IVPB SCH ×3 (01:01→17:02)
[2023-06-18 07:25] LABS: HEMATOCRIT 25.3 % (32.4-45.2); HEMOGLOBIN 7.9 GM/dL (10.7-15.3); MCH 28.5 pg (25.7-33.7); MCHC 31.4 g/dl (32.0-36.0); MEAN CELL VOLUME 90.6 fl (80-96); MEAN PLT VOLUME 8.2 fl (7.5-11.1); PLATELET COUNT 312 10^3/uL (134-434); RBC 2.79 M/mm3 (3.60-5.2); RDW 18.3 % (11.6-15.6); WHITE BLOOD COUNT 11.1 K/mm3 (4.0-10.0)
[2023-06-18 07:46] LABS: POTASSIUM 3.7 mmol/L (3.5-5.1)
[2023-06-18 08:02] LABS: ALBUMIN 1.4 g/dl (3.4-5.0); BLOOD UREA NITROGEN 21.5 mg/dL (7-18); CALCIUM 8.7 mg/dL (8.5-10.1)
[2023-06-18 08:05] LABS: CREATININE 2.2 mg/dL (0.55-1.3)
[2023-06-18 08:07] LABS: BILIRUBIN,TOTAL 0.5 mg/dL (0.2-1); TOT PROT 6.9 g/dl (6.4-8.2)
[2023-06-18] MEDS: ALBUTEROL SO4 2.5/IPRATROPIUM 0.5 INH SOL 3 ML VIAL.NEB. NEB SCH ×4 (08:30→20:19)
[2023-06-18] MEDS: ASPIRIN 81 MG CHEWABLE TABLETS GT SCH (09:03)
[2023-06-18] MEDS: levETIRAcetam 500 MG/5 ML ORAL SOLUTION (UNIT-DOSE CUPS) GT SCH ×2 (09:03→21:50)
[2023-06-18] MEDS: MIDODRINE HCL 5 MG TABLET PO SCH ×3 (09:03→17:01)
[2023-06-18] MEDS: LIDOCAINE 4% PATCH TP SCH (09:04)
[2023-06-18] MEDS: FAMOTIDINE 20 MG/2.5 ML ORAL LIQUID PEG SCH (09:04)
[2023-06-18] MEDS: LACTOBACILLUS ACIDOPHILUS 1 TABLET GT SCH (09:04)
[2023-06-18] MEDS: CASPOFUNGIN ACETATE 50 MG in SODIUM CHLORIDE 250 ML IVPB SCH (14:33)
[2023-06-18] MEDS: ATORVASTATIN CA 40 MG TABLET (FP) GT SCH (21:50)
[2023-06-18] MEDS: LIDOCAINE PATCH REMOVAL MC SCH (21:50)
[2023-06-18] MEDS: CHLORHEXIDINE GLUCONATE 4% CLEANSER FOR DECOLONIZATION TP SCH (21:50)
[2023-06-19] MEDS: PIPERACILLIN/TAZOB 2.25 GM 2.25 GM in DEXTROSE 5%-WATER - 50 ML IVPB SCH ×3 (02:37→17:03)
[2023-06-19 06:26] LABS: HEMATOCRIT 24.5 % (32.4-45.2); MCH 29.2 pg (25.7-33.7); MCHC 32.5 g/dl (32.0-36.0); MEAN PLT VOLUME 7.7 fl (7.5-11.1); PLATELET COUNT 339 10^3/uL (134-434); RBC 2.73 M/mm3 (3.60-5.2); RDW 18.7 % (11.6-15.6); WHITE BLOOD COUNT 9.9 K/mm3 (4.0-10.0)
[2023-06-19 06:46] LABS: POTASSIUM 3.8 mmol/L (3.5-5.1)
[2023-06-19 06:51] LABS: CALCIUM 8.5 mg/dL (8.5-10.1)
[2023-06-19 06:52] LABS: ALBUMIN 1.3 g/dl (3.4-5.0); BLOOD UREA NITROGEN 26.9 mg/dL (7-18); MAGNESIUM 1.5 mg/dL (1.8-2.4)
[2023-06-19 06:54] LABS: CREATININE 3.1 mg/dL (0.55-1.3); PHOSPHOROUS 3.2 mg/dL (2.5-4.9)
[2023-06-19 06:56] LABS: BILIRUBIN,TOTAL 0.6 mg/dL (0.2-1)
[2023-06-19] MEDS ORDERED: SODIUM CHLORIDE 250 ML IV PRN (07:33)
[2023-06-19] MEDS: ALBUTEROL SO4 2.5/IPRATROPIUM 0.5 INH SOL 3 ML VIAL.NEB. NEB SCH ×4 (07:40→20:05)
[2023-06-19 09:59] LABS: ANISOCYTOSIS 0; MACROCYTOSIS 0
[2023-06-19] MEDS: LACTOBACILLUS ACIDOPHILUS 1 TABLET GT SCH (10:29)
[2023-06-19] MEDS: levETIRAcetam 500 MG/5 ML ORAL SOLUTION (UNIT-DOSE CUPS) GT SCH ×2 (10:29→21:12)
[2023-06-19] MEDS: LIDOCAINE 4% PATCH TP SCH (10:29)
[2023-06-19] MEDS: FAMOTIDINE 20 MG/2.5 ML ORAL LIQUID PEG SCH (10:29)
[2023-06-19] MEDS: ASPIRIN 81 MG CHEWABLE TABLETS GT SCH (10:29)
[2023-06-19] MEDS: MIDODRINE HCL 5 MG TABLET PO SCH ×3 (10:31→17:11)
[2023-06-19] MEDS ORDERED: EPOETIN ALFA-EPBX 10,000 UNIT/ML VIAL IVPUSH ONE (13:30)
[2023-06-19] MEDS: amLODIPine BESYLATE 2.5 MG TABLET (FP) PEG SCH (14:12)
[2023-06-19] MEDS: CASPOFUNGIN ACETATE 50 MG in SODIUM CHLORIDE 250 ML IVPB SCH (15:17)
[2023-06-19] MEDS: LIDOCAINE PATCH REMOVAL MC SCH (21:12)
[2023-06-19] MEDS: CHLORHEXIDINE GLUCONATE 4% CLEANSER FOR DECOLONIZATION TP SCH (21:12)
[2023-06-19] MEDS: ATORVASTATIN CA 40 MG TABLET (FP) GT SCH (21:12)
[2023-06-20] MEDS: PIPERACILLIN/TAZOB 2.25 GM 2.25 GM in DEXTROSE 5%-WATER - 50 ML IVPB SCH ×3 (01:37→17:06)
[2023-06-20] MEDS: ALBUTEROL SO4 2.5/IPRATROPIUM 0.5 INH SOL 3 ML VIAL.NEB. NEB SCH ×4 (07:30→20:05)
[2023-06-20 07:33] LABS: BASO % 0.6 % (0-2.0); EOS % 0.5 % (0-4.5); HEMATOCRIT 25.9 % (32.4-45.2); HEMOGLOBIN 8.4 GM/dL (10.7-15.3); LYMPH % 7.1 % (8-40); MCH 29.5 pg (25.7-33.7); MCHC 32.5 g/dl (32.0-36.0); MEAN CELL VOLUME 90.9 fl (80-96); MEAN PLT VOLUME 7.7 fl (7.5-11.1); MONO % 14.1 % (3.8-10.2); NEUT % 77.7 % (42.8-82.8); PLATELET COUNT 367 10^3/uL (134-434); RBC 2.85 M/mm3 (3.60-5.2); RDW 19.3 % (11.6-15.6); WHITE BLOOD COUNT 11.9 K/mm3 (4.0-10.0)
[2023-06-20 07:47] LABS: POTASSIUM 3.8 mmol/L (3.5-5.1)
[2023-06-20 07:55] LABS: CALCIUM 9.2 mg/dL (8.5-10.1); MAGNESIUM 1.8 mg/dL (1.8-2.4)
[2023-06-20 07:59] LABS: CREATININE 1.8 mg/dL (0.55-1.3)
[2023-06-20] MEDS: FAMOTIDINE 20 MG/2.5 ML ORAL LIQUID PEG SCH (09:24)
[2023-06-20] MEDS: amLODIPine BESYLATE 2.5 MG TABLET (FP) PEG SCH (09:24)
[2023-06-20] MEDS: ASPIRIN 81 MG CHEWABLE TABLETS GT SCH (09:25)
[2023-06-20] MEDS: LIDOCAINE 4% PATCH TP SCH (09:25)
[2023-06-20] MEDS: MIDODRINE HCL 5 MG TABLET PO SCH ×4 (09:25→17:06)
[2023-06-20] MEDS: levETIRAcetam 500 MG/5 ML ORAL SOLUTION (UNIT-DOSE CUPS) GT SCH ×2 (09:25→21:31)
[2023-06-20] MEDS: LACTOBACILLUS ACIDOPHILUS 1 TABLET GT SCH (09:25)
[2023-06-20] MEDS: CASPOFUNGIN ACETATE 50 MG in SODIUM CHLORIDE 250 ML IVPB SCH (14:59)
[2023-06-20] MEDS ORDERED: SODIUM CHLORIDE 250 ML IV PRN (19:17)
[2023-06-20] MEDS ORDERED: EPOETIN ALFA-EPBX 10,000 UNIT/ML VIAL SQ ONE (19:17)
[2023-06-20] MEDS: LIDOCAINE PATCH REMOVAL MC SCH (21:31)
[2023-06-20] MEDS: ATORVASTATIN CA 40 MG TABLET (FP) GT SCH (21:31)
[2023-06-20] MEDS: CHLORHEXIDINE GLUCONATE 4% CLEANSER FOR DECOLONIZATION TP SCH (21:39)
[2023-06-21] MEDS: PIPERACILLIN/TAZOB 2.25 GM 2.25 GM in DEXTROSE 5%-WATER - 50 ML IVPB SCH ×3 (01:39→17:36)
[2023-06-21] MEDS ORDERED: ALBUTEROL SO4 2.5/IPRATROPIUM 0.5 INH SOL 3 ML VIAL.NEB. NEB ONE (04:59)
[2023-06-21] MEDS: METOPROLOL TARTRATE 5 MG/5 ML VIAL IVPUSH PRN (05:39)
[2023-06-21] MEDS ORDERED: METOPROLOL TARTRATE 5 MG/5 ML VIAL IVPUSH ONE (07:30)
[2023-06-21] MEDS: ALBUTEROL SO4 2.5/IPRATROPIUM 0.5 INH SOL 3 ML VIAL.NEB. NEB SCH ×4 (07:40→20:05)
[2023-06-21] MEDS ORDERED: MIDAZOLAM HCL 2 MG/2 ML SINGLE DOSE VIAL ONE (07:44)
[2023-06-21] MEDS ORDERED: SUCCINYLCHOLINE CHLORIDE 200 MG/10 ML SYRINGE ONE (07:44)
[2023-06-21] MEDS ORDERED: ROCURONIUM BROMIDE 50 MG/5 ML SYRINGE ONE ×2 (07:44→09:27)
[2023-06-21] MEDS ORDERED: BUPIVACAINE HCL/PF 0.5% (5MG/ML) 10 ML VIAL ONE (07:47)
[2023-06-21] MEDS ORDERED: NOREPINEPHRINE BITARTRATE 4 MG/4 ML ML IV ONE (07:53)
[2023-06-21] MEDS ORDERED: METOPROLOL TARTRATE 5 MG/5 ML VIAL ONE (08:36)
[2023-06-21] MEDS ORDERED: BUPIVACAINE HCL/PF 0.5% (5 MG/ML) 30 ML VIAL IJ ONE (09:20)
[2023-06-21] MEDS ORDERED: SODIUM CHLORIDE 1,000 ML IV SCH (10:00)
[2023-06-21] MEDS ORDERED: BISACODYL 10 MG SUPP.RECT RC PRN (10:05)
[2023-06-21] MEDS ORDERED: ALBUTEROL SO4 0.083% IH SOL 2.5 MG/3 ML VIAL.NEB. NEB PRN (10:05)
[2023-06-21] MEDS ORDERED: SODIUM CHLORIDE 250 ML IV PRN (10:05)
[2023-06-21] MEDS ORDERED: METOPROLOL TARTRATE 5 MG/5 ML VIAL IVPUSH PRN (10:05)
[2023-06-21] MEDS: LIDOCAINE 4% PATCH TP SCH (11:50)
[2023-06-21] MEDS: levETIRAcetam 500 MG/5 ML ORAL SOLUTION (UNIT-DOSE CUPS) GT SCH ×2 (13:20→21:02)
[2023-06-21] MEDS: LACTOBACILLUS ACIDOPHILUS 1 TABLET GT SCH (13:20)
[2023-06-21] MEDS: FAMOTIDINE 20 MG/2.5 ML ORAL LIQUID PEG SCH (13:20)
[2023-06-21] MEDS: ASPIRIN 81 MG CHEWABLE TABLETS GT SCH (13:20)
[2023-06-21] MEDS: MUPIROCIN 2% TOPICAL OINTMENT FOR DECOLONIZATION NS SCH ×2 (13:20→22:00)
[2023-06-21] MEDS: CASPOFUNGIN ACETATE 50 MG in SODIUM CHLORIDE 250 ML IVPB SCH (14:17)
[2023-06-21] MEDS: MIDODRINE HCL 5 MG TABLET GT SCH ×2 (14:17→18:05)
[2023-06-21] MEDS: amLODIPine BESYLATE 2.5 MG TABLET (FP) PEG SCH ×2 (14:19→18:31)
[2023-06-21] MEDS ORDERED: EPOETIN ALFA-EPBX 10,000 UNIT/ML VIAL SQ ONE (15:30)
[2023-06-21] MEDS ORDERED: PIPERACILLIN/TAZOB 2.25 GM 2.25 GM in DEXTROSE 5%-WATER - 50 ML IVPB SCH (18:00)
[2023-06-21] MEDS: LIDOCAINE PATCH REMOVAL MC SCH (21:02)
[2023-06-21] MEDS: ATORVASTATIN CA 40 MG TABLET (FP) GT SCH (21:02)
[2023-06-21] MEDS: CHLORHEXIDINE GLUCONATE 4% CLEANSER FOR DECOLONIZATION TP SCH (21:02)
[2023-06-21] MEDS ORDERED: levETIRAcetam 500 MG/5 ML ORAL SOLUTION (UNIT-DOSE CUPS) GT SCH (22:00)
[2023-06-21] MEDS ORDERED: LIDOCAINE PATCH REMOVAL MC SCH (22:00)
[2023-06-22] MEDS: PIPERACILLIN/TAZOB 2.25 GM 2.25 GM in DEXTROSE 5%-WATER - 50 ML IVPB SCH ×3 (02:08→17:27)
[2023-06-22] MEDS: ALBUTEROL SO4 2.5/IPRATROPIUM 0.5 INH SOL 3 ML VIAL.NEB. NEB SCH ×4 (07:40→20:09)
[2023-06-22] MEDS: LIDOCAINE 4% PATCH TP SCH (09:18)
[2023-06-22] MEDS: FAMOTIDINE 20 MG/2.5 ML ORAL LIQUID PEG SCH (09:19)
[2023-06-22] MEDS: levETIRAcetam 500 MG/5 ML ORAL SOLUTION (UNIT-DOSE CUPS) GT SCH ×2 (09:19→21:29)
[2023-06-22] MEDS: ASPIRIN 81 MG CHEWABLE TABLETS GT SCH (09:19)
[2023-06-22] MEDS: MIDODRINE HCL 5 MG TABLET GT SCH ×3 (09:20→17:27)
[2023-06-22] MEDS: LACTOBACILLUS ACIDOPHILUS 1 TABLET GT SCH (09:20)
[2023-06-22] MEDS: amLODIPine BESYLATE 2.5 MG TABLET (FP) PEG SCH (09:20)
[2023-06-22] MEDS ORDERED: LACTOBACILLUS ACIDOPHILUS 1 TABLET GT SCH (10:00)
[2023-06-22] MEDS ORDERED: ASPIRIN 81 MG CHEWABLE TABLETS GT SCH (10:00)
[2023-06-22] MEDS ORDERED: MIDODRINE HCL 5 MG TABLET GT SCH (10:00)
[2023-06-22] MEDS ORDERED: LIDOCAINE 4% PATCH TP SCH (10:00)
[2023-06-22] MEDS ORDERED: amLODIPine BESYLATE 2.5 MG TABLET (FP) PEG SCH (10:00)
[2023-06-22] MEDS ORDERED: FAMOTIDINE 20 MG/2.5 ML ORAL LIQUID PEG SCH (10:00)
[2023-06-22] MEDS: CASPOFUNGIN ACETATE 50 MG in SODIUM CHLORIDE 250 ML IVPB SCH (14:34)
[2023-06-22] MEDS: CHLORHEXIDINE GLUCONATE 4% CLEANSER FOR DECOLONIZATION TP SCH (21:28)
[2023-06-22] MEDS: LIDOCAINE PATCH REMOVAL MC SCH (21:29)
[2023-06-22] MEDS: ATORVASTATIN CA 40 MG TABLET (FP) GT SCH (21:30)
[2023-06-23] MEDS: PIPERACILLIN/TAZOB 2.25 GM 2.25 GM in DEXTROSE 5%-WATER - 50 ML IVPB SCH ×3 (02:20→18:25)
[2023-06-23] MEDS: amLODIPine BESYLATE 2.5 MG TABLET (FP) PEG SCH (09:06)
[2023-06-23] MEDS: levETIRAcetam 500 MG/5 ML ORAL SOLUTION (UNIT-DOSE CUPS) GT SCH ×2 (09:06→21:24)
[2023-06-23] MEDS: LACTOBACILLUS ACIDOPHILUS 1 TABLET GT SCH (09:06)
[2023-06-23] MEDS: ASPIRIN 81 MG CHEWABLE TABLETS GT SCH (09:06)
[2023-06-23] MEDS: LIDOCAINE 4% PATCH TP SCH (09:07)
[2023-06-23] MEDS: MIDODRINE HCL 5 MG TABLET GT SCH ×3 (09:07→18:25)
[2023-06-23] MEDS: FAMOTIDINE 20 MG/2.5 ML ORAL LIQUID PEG SCH (09:12)
[2023-06-23] MEDS: ALBUTEROL SO4 2.5/IPRATROPIUM 0.5 INH SOL 3 ML VIAL.NEB. NEB SCH ×4 (10:52→20:35)
[2023-06-23] MEDS: CASPOFUNGIN ACETATE 50 MG in SODIUM CHLORIDE 250 ML IVPB SCH (14:15)
[2023-06-23] MEDS ORDERED: SODIUM CHLORIDE 250 ML IV PRN (19:43)
[2023-06-23] MEDS: ATORVASTATIN CA 40 MG TABLET (FP) GT SCH (21:23)
[2023-06-23] MEDS: LIDOCAINE PATCH REMOVAL MC SCH (21:24)
[2023-06-23] MEDS: CHLORHEXIDINE GLUCONATE 4% CLEANSER FOR DECOLONIZATION TP SCH (21:24)
[2023-06-24] MEDS: PIPERACILLIN/TAZOB 2.25 GM 2.25 GM in DEXTROSE 5%-WATER - 50 ML IVPB SCH ×3 (01:26→17:12)
[2023-06-24 07:14] LABS: POTASSIUM 3.2 mmol/L (3.5-5.1)
[2023-06-24] MEDS: ALBUTEROL SO4 2.5/IPRATROPIUM 0.5 INH SOL 3 ML VIAL.NEB. NEB SCH ×4 (07:15→20:30)
[2023-06-24 07:24] LABS: ALBUMIN 1.4 g/dl (3.4-5.0); BLOOD UREA NITROGEN 33.4 mg/dL (7-18); CALCIUM 9.1 mg/dL (8.5-10.1); MAGNESIUM 1.6 mg/dL (1.8-2.4)
[2023-06-24 07:26] LABS: CREATININE 3.3 mg/dL (0.55-1.3)
[2023-06-24 07:28] LABS: BILIRUBIN,TOTAL 0.4 mg/dL (0.2-1); TOT PROT 7.3 g/dl (6.4-8.2)
[2023-06-24] MEDS: ASPIRIN 81 MG CHEWABLE TABLETS GT SCH (10:08)
[2023-06-24] MEDS: MIDODRINE HCL 5 MG TABLET GT SCH ×3 (10:08→17:13)
[2023-06-24] MEDS: levETIRAcetam 500 MG/5 ML ORAL SOLUTION (UNIT-DOSE CUPS) GT SCH ×2 (10:08→21:02)
[2023-06-24] MEDS: LIDOCAINE 4% PATCH TP SCH (10:09)
[2023-06-24] MEDS: LACTOBACILLUS ACIDOPHILUS 1 TABLET GT SCH (10:09)
[2023-06-24] MEDS: amLODIPine BESYLATE 2.5 MG TABLET (FP) PEG SCH (10:09)
[2023-06-24] MEDS: FAMOTIDINE 20 MG/2.5 ML ORAL LIQUID PEG SCH (13:17)
[2023-06-24 13:41] LABS: BASO % 0.3 % (0-2.0); EOS % 0.5 % (0-4.5); MCH 28.1 pg (25.7-33.7); MCHC 30.2 g/dl (32.0-36.0); MEAN PLT VOLUME 7.7 fl (7.5-11.1); MONO % 12.2 % (3.8-10.2); PLATELET COUNT 370 10^3/uL (134-434); RBC 3.22 M/mm3 (3.60-5.2); RDW 18.8 % (11.6-15.6); WHITE BLOOD COUNT 16.6 K/mm3 (4.0-10.0)
[2023-06-24] MEDS: CASPOFUNGIN ACETATE 50 MG in SODIUM CHLORIDE 250 ML IVPB SCH (16:00)
[2023-06-24] MEDS: guaiFENesin 200 MG/10 ML 10 ML UNIT-DOSE CUPS GT PRN (21:02)
[2023-06-24] MEDS: CHLORHEXIDINE GLUCONATE 4% CLEANSER FOR DECOLONIZATION TP SCH (21:02)
[2023-06-24] MEDS: ATORVASTATIN CA 40 MG TABLET (FP) GT SCH (21:02)
[2023-06-24] MEDS: LIDOCAINE PATCH REMOVAL MC SCH (21:03)
[2023-06-25] MEDS: PIPERACILLIN/TAZOB 2.25 GM 2.25 GM in DEXTROSE 5%-WATER - 50 ML IVPB SCH ×2 (01:01→09:11)
[2023-06-25] MEDS: ALBUTEROL SO4 2.5/IPRATROPIUM 0.5 INH SOL 3 ML VIAL.NEB. NEB SCH ×3 (08:30→20:00)
[2023-06-25] MEDS: MIDODRINE HCL 5 MG TABLET GT SCH ×3 (09:10→18:09)
[2023-06-25] MEDS: levETIRAcetam 500 MG/5 ML ORAL SOLUTION (UNIT-DOSE CUPS) GT SCH ×2 (09:10→21:18)
[2023-06-25] MEDS: LIDOCAINE 4% PATCH TP SCH (09:11)
[2023-06-25] MEDS: LACTOBACILLUS ACIDOPHILUS 1 TABLET GT SCH (09:11)
[2023-06-25] MEDS: FAMOTIDINE 20 MG/2.5 ML ORAL LIQUID PEG SCH (09:11)
[2023-06-25] MEDS: ASPIRIN 81 MG CHEWABLE TABLETS GT SCH (09:11)
[2023-06-25] MEDS: amLODIPine BESYLATE 2.5 MG TABLET (FP) PEG SCH (09:11)
[2023-06-25] MEDS: CASPOFUNGIN ACETATE 50 MG in SODIUM CHLORIDE 250 ML IVPB SCH (14:43)
[2023-06-25] MEDS: ATORVASTATIN CA 40 MG TABLET (FP) GT SCH (21:18)
[2023-06-25] MEDS: CHLORHEXIDINE GLUCONATE 4% CLEANSER FOR DECOLONIZATION TP SCH (21:18)
[2023-06-25] MEDS: LIDOCAINE PATCH REMOVAL MC SCH (21:18)
[2023-06-25] MEDS: guaiFENesin 200 MG/10 ML 10 ML UNIT-DOSE CUPS GT PRN (21:18)
[2023-06-26] MEDS: ALBUTEROL SO4 2.5/IPRATROPIUM 0.5 INH SOL 3 ML VIAL.NEB. NEB SCH (07:57)
[2023-06-26] MEDS: ASPIRIN 81 MG CHEWABLE TABLETS GT SCH (09:29)
[2023-06-26] MEDS: LIDOCAINE 4% PATCH TP SCH (09:29)
[2023-06-26] MEDS: MIDODRINE HCL 5 MG TABLET GT SCH ×3 (09:30→18:45)
[2023-06-26] MEDS: amLODIPine BESYLATE 2.5 MG TABLET (FP) PEG SCH (09:30)
[2023-06-26] MEDS: levETIRAcetam 500 MG/5 ML ORAL SOLUTION (UNIT-DOSE CUPS) GT SCH ×2 (09:30→21:59)
[2023-06-26] MEDS: LACTOBACILLUS ACIDOPHILUS 1 TABLET GT SCH (09:30)
[2023-06-26] MEDS: FAMOTIDINE 20 MG/2.5 ML ORAL LIQUID PEG SCH (09:30)
[2023-06-26] MEDS ORDERED: EPOETIN ALFA-EPBX 10,000 UNIT/ML VIAL SQ ONE (13:15)
[2023-06-26] MEDS ORDERED: SODIUM CHLORIDE 250 ML IV PRN (14:00)
[2023-06-26] MEDS: CASPOFUNGIN ACETATE 50 MG in SODIUM CHLORIDE 250 ML IVPB SCH (16:47)
[2023-06-26] MEDS ORDERED: ALBUTEROL SO4 2.5/IPRATROPIUM 0.5 INH SOL 3 ML VIAL.NEB. NEB ONE (19:47)
[2023-06-26] MEDS: CHLORHEXIDINE GLUCONATE 4% CLEANSER FOR DECOLONIZATION TP SCH (21:59)
[2023-06-26] MEDS: ATORVASTATIN CA 40 MG TABLET (FP) GT SCH (21:59)
[2023-06-26] MEDS: LIDOCAINE PATCH REMOVAL MC SCH (21:59)
[2023-06-27 09:09] VITALS: BP 136/72; TEMP 98.8
[2023-06-27] MEDS: MIDODRINE HCL 5 MG TABLET GT SCH (09:43)
[2023-06-27] MEDS: FAMOTIDINE 20 MG/2.5 ML ORAL LIQUID PEG SCH (09:44)
[2023-06-27] MEDS: ASPIRIN 81 MG CHEWABLE TABLETS GT SCH (09:44)
[2023-06-27] MEDS: amLODIPine BESYLATE 2.5 MG TABLET (FP) PEG SCH (09:44)
[2023-06-27] MEDS: levETIRAcetam 500 MG/5 ML ORAL SOLUTION (UNIT-DOSE CUPS) GT SCH (09:44)
[2023-06-27] MEDS: LACTOBACILLUS ACIDOPHILUS 1 TABLET GT SCH (09:44)
[2023-06-27] MEDS: LIDOCAINE 4% PATCH TP SCH (09:44)
[2023-06-27 10:26] VITALS: PULSE 84
[2023-06-27 11:14] VITALS: RESP 18
== END 2023-06-27 11:25 | DRG 870 ==
LOC: JER 16:52 → JERBED 21:09 → J2W 05-24 23:19
PROVIDERS: ADMIT Internal Medicine; ATTEND Family Medicine
PROC: 5A1955Z Respiratory Ventilation, Greater than 96 Consecutive Hours (ICD-10-PCS; 2023-05-22)
PROC: 5A1D70Z Performance of Urinary Filtration, Intermittent, Less than 6 Hours Per Day (ICD-10-PCS; 2023-05-25)
PROC: 30233N1 Transfusion of Nonautologous Red Blood Cells into Peripheral Vein, Percutaneous Approach (ICD-10-PCS; 2023-05-27)
PROC: B54NZZA Ultrasonography of Left Upper Extremity Veins, Guidance (ICD-10-PCS; 2023-05-30)
PROC: 0J980ZZ Drainage of Abdomen Subcutaneous Tissue and Fascia, Open Approach (ICD-10-PCS; 2023-05-30)
PROC: 3E1M38Z Irrigation of Peritoneal Cavity using Irrigating Substance, Percutaneous Approach (ICD-10-PCS; 2023-05-30)
PROC: 05HF33Z Insertion of Infusion Device into Left Cephalic Vein, Percutaneous Approach (ICD-10-PCS; principal; 2023-05-30 14:30)
PROC: 4A133B1 Monitoring of Arterial Pressure, Peripheral, Percutaneous Approach (ICD-10-PCS; 2023-06-12)
PROC: 4A133J1 Monitoring of Arterial Pulse, Peripheral, Percutaneous Approach (ICD-10-PCS; 2023-06-12)
PROC: 5A1D70Z Performance of Urinary Filtration, Intermittent, Less than 6 Hours Per Day (ICD-10-PCS; 2023-06-19)
PROC: 0DH63UZ Insertion of Feeding Device into Stomach, Percutaneous Approach (ICD-10-PCS; 2023-06-21)
PROC: 5A1D70Z Performance of Urinary Filtration, Intermittent, Less than 6 Hours Per Day (ICD-10-PCS; 2023-06-21)
PROC: 5A1D70Z Performance of Urinary Filtration, Intermittent, Less than 6 Hours Per Day (ICD-10-PCS; 2023-06-24)
DX: A41.89 Other specified sepsis (principal); G93.41 Metabolic encephalopathy; J18.9 Pneumonia, unspecified organism; N18.6 End stage renal disease; R53.2 Functional quadriplegia; K94.22 Gastrostomy infection; E87.1 Hypo-osmolality and hyponatremia; J96.11 Chronic respiratory failure with hypoxia; Z43.1 Encounter for attention to gastrostomy; L02.211 Cutaneous abscess of abdominal wall; B49 Unspecified mycosis; E46 Unspecified protein-calorie malnutrition; Z68.42 Body mass index [BMI] 45.0-49.9, adult; I25.10 Atherosclerotic heart disease of native coronary artery without angina pectoris; I48.0 Paroxysmal atrial fibrillation; L08.89 Other specified local infections of the skin and subcutaneous tissue; G40.909 Epilepsy, unspecified, not intractable, without status epilepticus; D72.829 Elevated white blood cell count, unspecified; R79.89 Other specified abnormal findings of blood chemistry; E03.9 Hypothyroidism, unspecified; F03.90 Unspecified dementia, unspecified severity, without behavioral disturbance, psychotic disturbance, mood disturbance, and anxiety; E87.70 Fluid overload, unspecified; D64.9 Anemia, unspecified; E87.5 Hyperkalemia; E87.6 Hypokalemia; L89.152 Pressure ulcer of sacral region, stage 2; L89.322 Pressure ulcer of left buttock, stage 2; B96.5 Pseudomonas (aeruginosa) (mallei) (pseudomallei) as the cause of diseases classified elsewhere; I25.2 Old myocardial infarction; Z93.1 Gastrostomy status; Z93.0 Tracheostomy status; Y83.8 Other surgical procedures as the cause of abnormal reaction of the patient, or of later complication, without mention of misadventure at the time of the procedure; Z99.2 Dependence on renal dialysis; E66.01 Morbid (severe) obesity due to excess calories
CPT/HCPCS: 0241U-QW; 36415; 36430; 36600; 71045-TC-FY; 71250-TC; 74018-TC-FY; 74176-TC; 80048; 80053; 80076; 81003; 82553; 82803; 82962; 83540; 83550; 83605; 83735; 84100; 84443; 84484; 85025; 85027; 85610; 85730; 86803; 86850; 86900; 86901; 86922; 87040; 87070; 87077; 87086; 87106; 87186; 87205; 87340; 93005; 93010; 93306-TC; 94002; 94640; 94760; 99285-25; G0480; J0637; J0878; J1644; P9047; P9058; Q5106

== ENCOUNTER 2023-06-28 01:07 | Inpatient (IN) | payer OTHER ==
[2023-06-28 03:48] LABS: BASO % 0.3 % (0-2.0); EOS % 1.6 % (0-4.5); HEMATOCRIT 26.1 % (32.4-45.2); HEMOGLOBIN 8.1 GM/dL (10.7-15.3); LYMPH % 7.3 % (8-40); MCH 28.4 pg (25.7-33.7); MEAN CELL VOLUME 91.5 fl (80-96); MEAN PLT VOLUME 7.8 fl (7.5-11.1); MONO % 13.7 % (3.8-10.2); NEUT % 77.1 % (42.8-82.8); PLATELET COUNT 288 10^3/uL (134-434); RBC 2.85 M/mm3 (3.60-5.2); RDW 18.6 % (11.6-15.6); WHITE BLOOD COUNT 11.7 K/mm3 (4.0-10.0)
[2023-06-28 04:07] LABS: POTASSIUM 3.1 mmol/L (3.5-5.1)
[2023-06-28 04:08] LABS: CALCIUM 9.6 mg/dL (8.5-10.1)
[2023-06-28 04:09] LABS: ALBUMIN 1.4 g/dl (3.4-5.0)
[2023-06-28 04:12] LABS: CREATININE 2.5 mg/dL (0.55-1.3)
[2023-06-28 04:14] LABS: BILIRUBIN,TOTAL 0.5 mg/dL (0.2-1)
[2023-06-28] MEDS ORDERED: CASPOFUNGIN ACETATE 50 MG in SODIUM CHLORIDE 250 ML IVPB SCH (08:45)
[2023-06-28] MEDS ORDERED: FAMOTIDINE 20 MG TABLET PEG SCH (10:00)
[2023-06-28] MEDS ORDERED: CEFEPIME HCL 1 GM VIAL (RESTRICTED TO ID) IVPB SCH (10:00)
[2023-06-28] MEDS: ALBUTEROL SO4 2.5/IPRATROPIUM 0.5 INH SOL 3 ML VIAL.NEB. NEB SCH ×4 (10:10→20:12)
[2023-06-28] MEDS ORDERED: ALBUTEROL SO4 2.5/IPRATROPIUM 0.5 INH SOL 3 ML VIAL.NEB. NEB ONE ×2 (10:10→15:21)
[2023-06-28] MEDS ORDERED: POTASSIUM CHLORIDE ORAL LIQUID 20 MEQ/15 ML ONE (10:26)
[2023-06-28] MEDS ORDERED: MIDODRINE HCL 5 MG TABLET ONE (10:26)
[2023-06-28] MEDS ORDERED: ASPIRIN 81 MG CHEWABLE TABLETS ONE (10:26)
[2023-06-28] MEDS ORDERED: LIDOCAINE 4% PATCH TP ONE (10:26)
[2023-06-28] MEDS: POTASSIUM CHLORIDE ORAL LIQUID 20 MEQ/15 ML PO SCH ×2 (10:31→22:37)
[2023-06-28] MEDS: ASPIRIN 81 MG CHEWABLE TABLETS GT SCH (10:32)
[2023-06-28] MEDS: LIDOCAINE 4% PATCH TP SCH (10:32)
[2023-06-28] MEDS: MIDODRINE HCL 5 MG TABLET GT SCH (10:32)
[2023-06-28] MEDS: levETIRAcetam 500 MG/5 ML ORAL SOLUTION (UNIT-DOSE CUPS) GT SCH ×2 (11:32→22:37)
[2023-06-28] MEDS: FAMOTIDINE 20 MG/2.5 ML ORAL LIQUID PEG SCH (11:32)
[2023-06-28] MEDS: LACTOBACILLUS ACIDOPHILUS 1 TABLET GT SCH (11:32)
[2023-06-28] MEDS ORDERED: CASPOFUNGIN ACETATE 50 MG in SODIUM CHLORIDE 250 ML IVPB ONE (12:00)
[2023-06-28] MEDS ORDERED: SODIUM CHLORIDE 250 ML IV PRN (14:01)
[2023-06-28] MEDS ORDERED: ACETAMINOPHEN 1000 MG/100 ML BAG IVPB PRN (15:48)
[2023-06-28] MEDS ORDERED: ACETAMINOPHEN INJECTION 100 ML IVPB ONE (16:14)
[2023-06-28] MEDS ORDERED: PATIENT'S OWN MEDICATION (NON-FORMULARY) (Lidocaine Patch Removal 1 EACH Each) MC SCH (22:00)
[2023-06-28] MEDS: ATORVASTATIN CA 40 MG TABLET (FP) GT SCH (22:37)
[2023-06-28] MEDS: LIDOCAINE PATCH REMOVAL MC SCH (22:37)
[2023-06-29] MEDS: ALBUTEROL SO4 2.5/IPRATROPIUM 0.5 INH SOL 3 ML VIAL.NEB. NEB SCH ×4 (07:15→20:34)
[2023-06-29] MEDS ORDERED: DEXTROSE 5% IVPB SCH (10:00)
[2023-06-29] MEDS ORDERED: AMPHOTERICIN B LIPOSOMAL IVPB SCH (10:00)
[2023-06-29] MEDS ORDERED: WATER IVPB SCH (10:00)
[2023-06-29] MEDS: LIDOCAINE 4% PATCH TP SCH (10:30)
[2023-06-29] MEDS ORDERED: EPOETIN ALFA-EPBX 10,000 UNIT/ML VIAL SQ ONE (13:15)
[2023-06-29] MEDS: LACTOBACILLUS ACIDOPHILUS 1 TABLET GT SCH (15:10)
[2023-06-29] MEDS: ASPIRIN 81 MG CHEWABLE TABLETS GT SCH (15:10)
[2023-06-29] MEDS: FAMOTIDINE 20 MG/2.5 ML ORAL LIQUID PEG SCH (15:11)
[2023-06-29] MEDS: POTASSIUM CHLORIDE ORAL LIQUID 20 MEQ/15 ML PO SCH (15:11)
[2023-06-29] MEDS: levETIRAcetam 500 MG/5 ML ORAL SOLUTION (UNIT-DOSE CUPS) GT SCH (15:11)
[2023-06-29] MEDS: DEXTROSE 5% IVPB SCH (17:09)
[2023-06-29] MEDS: WATER IVPB SCH (17:09)
[2023-06-29] MEDS: AMPHOTERICIN B LIPOSOMAL IVPB SCH (17:09)
[2023-06-29 21:05] VITALS: BMI 44.5
[2023-06-30] MEDS: LIDOCAINE PATCH REMOVAL MC SCH ×2 (01:52→22:29)
[2023-06-30] MEDS: levETIRAcetam 500 MG/5 ML ORAL SOLUTION (UNIT-DOSE CUPS) GT SCH ×3 (01:52→22:29)
[2023-06-30] MEDS: ATORVASTATIN CA 40 MG TABLET (FP) GT SCH ×2 (01:53→22:29)
[2023-06-30] MEDS: POTASSIUM CHLORIDE ORAL LIQUID 20 MEQ/15 ML PO SCH ×3 (01:54→22:29)
[2023-06-30] MEDS: NYSTATIN 100,000 UNIT/GM TOPICAL CREAM 15 GM TUBE TP SCH ×3 (01:55→22:31)
[2023-06-30] MEDS: ALBUTEROL SO4 2.5/IPRATROPIUM 0.5 INH SOL 3 ML VIAL.NEB. NEB SCH ×4 (08:00→19:45)
[2023-06-30] MEDS: ZINC SULFATE 220 MG CAPSULE (FP) PO SCH (09:09)
[2023-06-30] MEDS: LACTOBACILLUS ACIDOPHILUS 1 TABLET GT SCH (09:09)
[2023-06-30] MEDS: AMINO ACIDS/PROTEIN HYDROLYS 30 ML LIQUID.PKT PO SCH ×2 (09:09→16:52)
[2023-06-30] MEDS: VITAMIN B COMP W-C 1 EA TABLET (NEPHRO-VITE) PO SCH (09:09)
[2023-06-30] MEDS: FAMOTIDINE 20 MG/2.5 ML ORAL LIQUID PEG SCH (09:09)
[2023-06-30] MEDS: LIDOCAINE 4% PATCH TP SCH (09:10)
[2023-06-30] MEDS: ASPIRIN 81 MG CHEWABLE TABLETS GT SCH (09:10)
[2023-06-30] MEDS: BACITRACIN ZINC 15 GM TUBE TOPICAL OINTMENT TP SCH (09:10)
[2023-06-30 10:46] LABS: HEMOGLOBIN 7.8 GM/dL (10.7-15.3); RDW 19.3 % (11.6-15.6)
[2023-06-30 10:48] LABS: BASO % 0.7 % (0-2.0); EOS % 1.3 % (0-4.5); HEMATOCRIT 24.6 % (32.4-45.2); LYMPH % 8.9 % (8-40); MCH 29.4 pg (25.7-33.7); MCHC 31.6 g/dl (32.0-36.0); MEAN PLT VOLUME 8.4 fl (7.5-11.1); MONO % 14.2 % (3.8-10.2); NEUT % 74.9 % (42.8-82.8); PLATELET COUNT 250 10^3/uL (134-434); RBC 2.65 M/mm3 (3.60-5.2); WHITE BLOOD COUNT 8.1 K/mm3 (4.0-10.0)
[2023-06-30 11:11] LABS: ALBUMIN 1.4 g/dl (3.4-5.0); BILIRUBIN,TOTAL 0.4 mg/dL (0.2-1); BLOOD UREA NITROGEN 25.6 mg/dL (7-18); CALCIUM 9.1 mg/dL (8.5-10.1); CREATININE 2.1 mg/dL (0.55-1.3); POTASSIUM 4.4 mmol/L (3.5-5.1); TOT PROT 8.2 g/dl (6.4-8.2)
[2023-06-30] MEDS: WATER IVPB SCH (16:35)
[2023-06-30] MEDS: DEXTROSE 5% IVPB SCH (16:35)
[2023-06-30] MEDS: AMPHOTERICIN B LIPOSOMAL IVPB SCH (16:35)
[2023-07-01] MEDS ORDERED: ACETAMINOPHEN 1000 MG/100 ML BAG IVPB ONE (01:27)
[2023-07-01] MEDS: ALBUTEROL SO4 2.5/IPRATROPIUM 0.5 INH SOL 3 ML VIAL.NEB. NEB SCH ×4 (08:35→20:52)
[2023-07-01 09:21] LABS: HEMATOCRIT 23.6 % (32.4-45.2); HEMOGLOBIN 7.5 GM/dL (10.7-15.3); MCH 29.3 pg (25.7-33.7); MCHC 31.9 g/dl (32.0-36.0); MEAN CELL VOLUME 91.9 fl (80-96); MEAN PLT VOLUME 8.6 fl (7.5-11.1); PLATELET COUNT 231 10^3/uL (134-434); RBC 2.56 M/mm3 (3.60-5.2); RDW 18.3 % (11.6-15.6); WHITE BLOOD COUNT 8.4 K/mm3 (4.0-10.0)
[2023-07-01 09:51] LABS: POTASSIUM 4.9 mmol/L (3.5-5.1)
[2023-07-01 09:57] LABS: CREATININE 2.7 mg/dL (0.55-1.3)
[2023-07-01 09:59] LABS: ALBUMIN 1.5 g/dl (3.4-5.0); BLOOD UREA NITROGEN 40.2 mg/dL (7-18)
[2023-07-01 10:00] LABS: CALCIUM 9.7 mg/dL (8.5-10.1)
[2023-07-01 10:01] LABS: BILIRUBIN,TOTAL 0.3 mg/dL (0.2-1); TOT PROT 7.9 g/dl (6.4-8.2)
[2023-07-01] MEDS: LIDOCAINE 4% PATCH TP SCH (10:02)
[2023-07-01] MEDS: LACTOBACILLUS ACIDOPHILUS 1 TABLET GT SCH (10:03)
[2023-07-01] MEDS: AMINO ACIDS/PROTEIN HYDROLYS 30 ML LIQUID.PKT PO SCH ×2 (10:03→17:37)
[2023-07-01] MEDS: POTASSIUM CHLORIDE ORAL LIQUID 20 MEQ/15 ML PO SCH ×2 (10:03→21:50)
[2023-07-01] MEDS: VITAMIN B COMP W-C 1 EA TABLET (NEPHRO-VITE) PO SCH (10:03)
[2023-07-01] MEDS: ZINC SULFATE 220 MG CAPSULE (FP) PO SCH (10:03)
[2023-07-01] MEDS: ASPIRIN 81 MG CHEWABLE TABLETS GT SCH (10:03)
[2023-07-01] MEDS: MIDODRINE HCL 5 MG TABLET GT SCH (10:03)
[2023-07-01] MEDS: BACITRACIN ZINC 15 GM TUBE TOPICAL OINTMENT TP SCH (10:04)
[2023-07-01] MEDS: levETIRAcetam 500 MG/5 ML ORAL SOLUTION (UNIT-DOSE CUPS) GT SCH ×2 (10:04→21:50)
[2023-07-01] MEDS: FAMOTIDINE 20 MG/2.5 ML ORAL LIQUID PEG SCH (10:04)
[2023-07-01] MEDS: NYSTATIN 100,000 UNIT/GM TOPICAL CREAM 15 GM TUBE TP SCH ×2 (10:06→21:51)
[2023-07-01 11:59] LABS: ANISOCYTOSIS 0; MACROCYTOSIS 0
[2023-07-01] MEDS: WATER IVPB SCH (15:41)
[2023-07-01] MEDS: DEXTROSE 5% IVPB SCH (15:41)
[2023-07-01] MEDS: AMPHOTERICIN B LIPOSOMAL IVPB SCH (15:41)
[2023-07-01] MEDS: HEPARIN NA (PORCINE) 5,000 UNITS/ML 1ML VIAL SQ SCH (15:41)
[2023-07-01] MEDS: ATORVASTATIN CA 40 MG TABLET (FP) GT SCH (21:50)
[2023-07-02] MEDS: LIDOCAINE PATCH REMOVAL MC SCH ×2 (00:34→23:38)
[2023-07-02] MEDS: ALBUTEROL SO4 2.5/IPRATROPIUM 0.5 INH SOL 3 ML VIAL.NEB. NEB SCH ×4 (08:52→20:23)
[2023-07-02] MEDS: levETIRAcetam 500 MG/5 ML ORAL SOLUTION (UNIT-DOSE CUPS) GT SCH ×2 (09:33→23:37)
[2023-07-02] MEDS: LACTOBACILLUS ACIDOPHILUS 1 TABLET GT SCH (09:33)
[2023-07-02] MEDS: POTASSIUM CHLORIDE ORAL LIQUID 20 MEQ/15 ML PO SCH ×2 (09:33→23:37)
[2023-07-02] MEDS: VITAMIN B COMP W-C 1 EA TABLET (NEPHRO-VITE) PO SCH (09:33)
[2023-07-02] MEDS: LIDOCAINE 4% PATCH TP SCH (09:33)
[2023-07-02] MEDS: ASPIRIN 81 MG CHEWABLE TABLETS GT SCH (09:33)
[2023-07-02] MEDS: ZINC SULFATE 220 MG CAPSULE (FP) PO SCH (09:33)
[2023-07-02] MEDS: FAMOTIDINE 20 MG/2.5 ML ORAL LIQUID PEG SCH (09:34)
[2023-07-02] MEDS: BACITRACIN ZINC 15 GM TUBE TOPICAL OINTMENT TP SCH (09:35)
[2023-07-02] MEDS: NYSTATIN 100,000 UNIT/GM TOPICAL CREAM 15 GM TUBE TP SCH ×2 (09:36→22:50)
[2023-07-02] MEDS: NYSTATIN POWDER 100,000 UNITS/GM - 15 GM TOPICAL POWDER TP SCH (09:37)
[2023-07-02] MEDS: AMINO ACIDS/PROTEIN HYDROLYS 30 ML LIQUID.PKT PO SCH ×2 (09:40→17:53)
[2023-07-02] MEDS ORDERED: SODIUM CHLORIDE 250 ML IV PRN (13:23)
[2023-07-02 13:55] LABS: HEMATOCRIT 20.9 % (32.4-45.2); MCH 28.7 pg (25.7-33.7); MCHC 30.7 g/dl (32.0-36.0); MEAN CELL VOLUME 93.5 fl (80-96); MEAN PLT VOLUME 8.4 fl (7.5-11.1); PLATELET COUNT 213 10^3/uL (134-434); RBC 2.23 M/mm3 (3.60-5.2); RDW 18.5 % (11.6-15.6); WHITE BLOOD COUNT 7.6 K/mm3 (4.0-10.0)
[2023-07-02] MEDS ORDERED: EPOETIN ALFA-EPBX 4,000 UNIT/ML VIAL SQ ONE (14:00)
[2023-07-02 14:10] LABS: HEMOGLOBIN 6.4 GM/dL (10.7-15.3)
[2023-07-02 14:11] LABS: CHLORIDE 102 mmol/L (98-107); SODIUM 131 mmol/L (136-145)
[2023-07-02 14:17] LABS: ALBUMIN 1.3 g/dl (3.4-5.0); CALCIUM 8.8 mg/dL (8.5-10.1); CO2 25 mmol/L (21-32)
[2023-07-02 14:18] LABS: BLOOD UREA NITROGEN 62.7 mg/dL (7-18)
[2023-07-02 14:21] LABS: CREATININE 3.4 mg/dL (0.55-1.3); SGOT/AST 32 U/L (15-37); SGPT/ALT 19 U/L (13-61)
[2023-07-02 14:22] LABS: BILIRUBIN,TOTAL 0.3 mg/dL (0.2-1); TOT PROT 7.5 g/dl (6.4-8.2)
[2023-07-02 14:23] LABS: ALK PHOS 263 U/L (45-117)
[2023-07-02 14:26] LABS: GLUCOSE,RANDOM 103 mg/dL (74-106)
[2023-07-02 14:27] LABS: ANION GAP 4 mmol/L (4-13); POTASSIUM 6.3 mmol/L (3.5-5.1)
[2023-07-02 15:05] LABS: ANISOCYTOSIS 0; MACROCYTOSIS 0
[2023-07-02] MEDS: WATER IVPB SCH (16:11)
[2023-07-02] MEDS: DEXTROSE 5% IVPB SCH (16:11)
[2023-07-02] MEDS: AMPHOTERICIN B LIPOSOMAL IVPB SCH (16:11)
[2023-07-02] MEDS: ATORVASTATIN CA 40 MG TABLET (FP) GT SCH (23:37)
[2023-07-03] MEDS ORDERED: ACETAMINOPHEN 1000 MG/100 ML BAG IVPB ONE (04:29)
[2023-07-03] MEDS: AMINO ACIDS/PROTEIN HYDROLYS 30 ML LIQUID.PKT PO SCH ×2 (09:03→17:18)
[2023-07-03] MEDS: FAMOTIDINE 20 MG/2.5 ML ORAL LIQUID PEG SCH (09:03)
[2023-07-03] MEDS: LIDOCAINE 4% PATCH TP SCH (09:03)
[2023-07-03] MEDS: MIDODRINE HCL 5 MG TABLET GT SCH ×2 (09:03→12:58)
[2023-07-03] MEDS: LACTOBACILLUS ACIDOPHILUS 1 TABLET GT SCH (09:04)
[2023-07-03] MEDS: ASPIRIN 81 MG CHEWABLE TABLETS GT SCH (09:04)
[2023-07-03] MEDS: levETIRAcetam 500 MG/5 ML ORAL SOLUTION (UNIT-DOSE CUPS) GT SCH ×2 (09:04→21:28)
[2023-07-03] MEDS: ZINC SULFATE 220 MG CAPSULE (FP) PO SCH (09:05)
[2023-07-03] MEDS: VITAMIN B COMP W-C 1 EA TABLET (NEPHRO-VITE) PO SCH (09:05)
[2023-07-03] MEDS: BACITRACIN ZINC 15 GM TUBE TOPICAL OINTMENT TP SCH (09:06)
[2023-07-03] MEDS: NYSTATIN POWDER 100,000 UNITS/GM - 15 GM TOPICAL POWDER TP SCH (09:06)
[2023-07-03] MEDS: NYSTATIN 100,000 UNIT/GM TOPICAL CREAM 15 GM TUBE TP SCH ×2 (09:07→21:44)
[2023-07-03] MEDS: POTASSIUM CHLORIDE ORAL LIQUID 20 MEQ/15 ML PO SCH ×2 (12:30→21:29)
[2023-07-03] MEDS: HEPARIN NA (PORCINE) 5,000 UNITS/ML 1ML VIAL SQ SCH (12:59)
[2023-07-03] MEDS: AMPHOTERICIN B LIPOSOMAL IVPB SCH (15:16)
[2023-07-03] MEDS: DEXTROSE 5% IVPB SCH (15:16)
[2023-07-03] MEDS: WATER IVPB SCH (15:16)
[2023-07-03] MEDS: ATORVASTATIN CA 40 MG TABLET (FP) GT SCH (21:29)
[2023-07-03] MEDS: LIDOCAINE PATCH REMOVAL MC SCH (21:44)
[2023-07-04] MEDS ORDERED: HALOPERIDOL LACTATE 5 MG/ML IM ONE (01:44)
[2023-07-04] MEDS: FAMOTIDINE 20 MG/2.5 ML ORAL LIQUID PEG SCH (10:47)
[2023-07-04] MEDS: AMINO ACIDS/PROTEIN HYDROLYS 30 ML LIQUID.PKT PO SCH ×2 (10:47→16:36)
[2023-07-04] MEDS: LACTOBACILLUS ACIDOPHILUS 1 TABLET GT SCH (10:47)
[2023-07-04] MEDS: levETIRAcetam 500 MG/5 ML ORAL SOLUTION (UNIT-DOSE CUPS) GT SCH ×2 (10:47→23:37)
[2023-07-04] MEDS: ASPIRIN 81 MG CHEWABLE TABLETS GT SCH (10:47)
[2023-07-04] MEDS: ZINC SULFATE 220 MG CAPSULE (FP) PO SCH (10:47)
[2023-07-04] MEDS: VITAMIN B COMP W-C 1 EA TABLET (NEPHRO-VITE) PO SCH (10:47)
[2023-07-04] MEDS: BACITRACIN ZINC 15 GM TUBE TOPICAL OINTMENT TP SCH (10:48)
[2023-07-04 11:37] LABS: BASO % 0.5 % (0-2.0); EOS % 1.9 % (0-4.5); HEMATOCRIT 24.2 % (32.4-45.2); HEMOGLOBIN 7.8 GM/dL (10.7-15.3); LYMPH % 9.2 % (8-40); MCH 29.5 pg (25.7-33.7); MCHC 32.3 g/dl (32.0-36.0); MEAN CELL VOLUME 91.5 fl (80-96); MEAN PLT VOLUME 8.1 fl (7.5-11.1); MONO % 10.5 % (3.8-10.2); NEUT % 77.9 % (42.8-82.8); PLATELET COUNT 244 10^3/uL (134-434); RBC 2.64 M/mm3 (3.60-5.2); RDW 17.4 % (11.6-15.6); WHITE BLOOD COUNT 7.1 K/mm3 (4.0-10.0)
[2023-07-04 12:33] LABS: ALBUMIN 1.5 g/dl (3.4-5.0); BLOOD UREA NITROGEN 47.3 mg/dL (7-18); CALCIUM 9.2 mg/dL (8.5-10.1); CREATININE 2.6 mg/dL (0.55-1.3); POTASSIUM 5.2 mmol/L (3.5-5.1)
[2023-07-04 12:35] LABS: BILIRUBIN,TOTAL 0.4 mg/dL (0.2-1); TOT PROT 7.8 g/dl (6.4-8.2)
[2023-07-04] MEDS ORDERED: SODIUM CHLORIDE 250 ML IV PRN (13:00)
[2023-07-04] MEDS ORDERED: EPOETIN ALFA-EPBX 10,000 UNIT/ML VIAL IVPUSH ONE (14:00)
[2023-07-04] MEDS: POTASSIUM CHLORIDE ORAL LIQUID 20 MEQ/15 ML PO SCH ×2 (15:13→23:39)
[2023-07-04] MEDS: LIDOCAINE 4% PATCH TP SCH (16:32)
[2023-07-04] MEDS: NYSTATIN POWDER 100,000 UNITS/GM - 15 GM TOPICAL POWDER TP SCH (16:33)
[2023-07-04] MEDS: NYSTATIN 100,000 UNIT/GM TOPICAL CREAM 15 GM TUBE TP SCH ×2 (16:33→23:38)
[2023-07-04] MEDS: DEXTROSE 5% IVPB SCH (16:36)
[2023-07-04] MEDS: AMPHOTERICIN B LIPOSOMAL IVPB SCH (16:36)
[2023-07-04] MEDS: WATER IVPB SCH (16:36)
[2023-07-04] MEDS: LIDOCAINE PATCH REMOVAL MC SCH (23:38)
[2023-07-04] MEDS: ATORVASTATIN CA 40 MG TABLET (FP) GT SCH (23:38)
[2023-07-05] MEDS ORDERED: HALOPERIDOL LACTATE 5 MG/ML IM ONE (02:48)
[2023-07-05] MEDS ORDERED: ACETAMINOPHEN 1000 MG/100 ML BAG IVPB ONE (02:48)
[2023-07-05] MEDS: ZINC SULFATE 220 MG CAPSULE (FP) PO SCH (10:05)
[2023-07-05] MEDS: LACTOBACILLUS ACIDOPHILUS 1 TABLET GT SCH (10:05)
[2023-07-05] MEDS: FAMOTIDINE 20 MG/2.5 ML ORAL LIQUID PEG SCH (10:05)
[2023-07-05] MEDS: levETIRAcetam 500 MG/5 ML ORAL SOLUTION (UNIT-DOSE CUPS) GT SCH ×2 (10:05→22:13)
[2023-07-05] MEDS: AMINO ACIDS/PROTEIN HYDROLYS 30 ML LIQUID.PKT PO SCH ×2 (10:05→16:41)
[2023-07-05] MEDS: ASPIRIN 81 MG CHEWABLE TABLETS GT SCH (10:06)
[2023-07-05] MEDS: VITAMIN B COMP W-C 1 EA TABLET (NEPHRO-VITE) PO SCH (10:06)
[2023-07-05] MEDS: BACITRACIN ZINC 15 GM TUBE TOPICAL OINTMENT TP SCH (10:06)
[2023-07-05] MEDS: MIDODRINE HCL 5 MG TABLET GT SCH (10:07)
[2023-07-05] MEDS: POTASSIUM CHLORIDE ORAL LIQUID 20 MEQ/15 ML PO SCH ×3 (12:35→22:16)
[2023-07-05] MEDS: NYSTATIN POWDER 100,000 UNITS/GM - 15 GM TOPICAL POWDER TP SCH (12:41)
[2023-07-05] MEDS: NYSTATIN 100,000 UNIT/GM TOPICAL CREAM 15 GM TUBE TP SCH (12:41)
[2023-07-05] MEDS: LIDOCAINE 4% PATCH TP SCH (12:41)
[2023-07-05] MEDS: WATER IVPB SCH (16:39)
[2023-07-05] MEDS: AMPHOTERICIN B LIPOSOMAL IVPB SCH (16:39)
[2023-07-05] MEDS: DEXTROSE 5% IVPB SCH (16:39)
[2023-07-05] MEDS ORDERED: SODIUM CHLORIDE 250 ML IV PRN (17:39)
[2023-07-05] MEDS: ATORVASTATIN CA 40 MG TABLET (FP) GT SCH (22:13)
[2023-07-06] MEDS: NYSTATIN 100,000 UNIT/GM TOPICAL CREAM 15 GM TUBE TP SCH ×3 (04:23→21:29)
[2023-07-06] MEDS: LIDOCAINE PATCH REMOVAL MC SCH ×2 (04:23→21:28)
[2023-07-06] MEDS ORDERED: EPOETIN ALFA-EPBX 10,000 UNIT/ML VIAL IVPUSH ONE (08:00)
[2023-07-06] MEDS: AMINO ACIDS/PROTEIN HYDROLYS 30 ML LIQUID.PKT PO SCH ×2 (09:30→17:27)
[2023-07-06] MEDS: POTASSIUM CHLORIDE ORAL LIQUID 20 MEQ/15 ML PO SCH ×2 (11:41→21:28)
[2023-07-06] MEDS: LACTOBACILLUS ACIDOPHILUS 1 TABLET GT SCH (11:42)
[2023-07-06] MEDS: ASPIRIN 81 MG CHEWABLE TABLETS GT SCH (11:42)
[2023-07-06] MEDS: ZINC SULFATE 220 MG CAPSULE (FP) PO SCH (11:42)
[2023-07-06] MEDS: VITAMIN B COMP W-C 1 EA TABLET (NEPHRO-VITE) PO SCH (11:42)
[2023-07-06] MEDS: levETIRAcetam 500 MG/5 ML ORAL SOLUTION (UNIT-DOSE CUPS) GT SCH ×2 (11:42→21:28)
[2023-07-06] MEDS: FAMOTIDINE 20 MG/2.5 ML ORAL LIQUID PEG SCH (11:43)
[2023-07-06] MEDS: LIDOCAINE 4% PATCH TP SCH (12:48)
[2023-07-06] MEDS: BACITRACIN ZINC 15 GM TUBE TOPICAL OINTMENT TP SCH (12:50)
[2023-07-06] MEDS: NYSTATIN POWDER 100,000 UNITS/GM - 15 GM TOPICAL POWDER TP SCH (13:58)
[2023-07-06] MEDS: AMPHOTERICIN B LIPOSOMAL IVPB SCH (17:37)
[2023-07-06] MEDS: WATER IVPB SCH (17:37)
[2023-07-06] MEDS: DEXTROSE 5% IVPB SCH (17:37)
[2023-07-06] MEDS: ATORVASTATIN CA 40 MG TABLET (FP) GT SCH (21:28)
[2023-07-07] MEDS: levETIRAcetam 500 MG/5 ML ORAL SOLUTION (UNIT-DOSE CUPS) GT SCH ×2 (10:01→21:59)
[2023-07-07] MEDS: LACTOBACILLUS ACIDOPHILUS 1 TABLET GT SCH (10:02)
[2023-07-07] MEDS: LIDOCAINE 4% PATCH TP SCH (10:02)
[2023-07-07] MEDS: ASPIRIN 81 MG CHEWABLE TABLETS GT SCH (10:02)
[2023-07-07] MEDS: VITAMIN B COMP W-C 1 EA TABLET (NEPHRO-VITE) PO SCH (10:02)
[2023-07-07] MEDS: AMINO ACIDS/PROTEIN HYDROLYS 30 ML LIQUID.PKT PO SCH ×2 (10:02→16:47)
[2023-07-07] MEDS: POTASSIUM CHLORIDE ORAL LIQUID 20 MEQ/15 ML PO SCH ×2 (10:02→21:59)
[2023-07-07] MEDS: ZINC SULFATE 220 MG CAPSULE (FP) PO SCH (10:02)
[2023-07-07] MEDS: FAMOTIDINE 20 MG/2.5 ML ORAL LIQUID PEG SCH (10:03)
[2023-07-07] MEDS: BACITRACIN ZINC 15 GM TUBE TOPICAL OINTMENT TP SCH (10:03)
[2023-07-07] MEDS: NYSTATIN 100,000 UNIT/GM TOPICAL CREAM 15 GM TUBE TP SCH ×2 (10:04→22:06)
[2023-07-07] MEDS: WATER IVPB SCH (16:46)
[2023-07-07] MEDS: AMPHOTERICIN B LIPOSOMAL IVPB SCH (16:46)
[2023-07-07] MEDS: DEXTROSE 5% IVPB SCH (16:46)
[2023-07-07] MEDS: ATORVASTATIN CA 40 MG TABLET (FP) GT SCH (21:59)
[2023-07-07] MEDS: LIDOCAINE PATCH REMOVAL MC SCH (22:07)
[2023-07-08] MEDS: AMINO ACIDS/PROTEIN HYDROLYS 30 ML LIQUID.PKT PO SCH ×2 (10:13→16:52)
[2023-07-08] MEDS: POTASSIUM CHLORIDE ORAL LIQUID 20 MEQ/15 ML PO SCH ×2 (10:14→21:42)
[2023-07-08] MEDS: ZINC SULFATE 220 MG CAPSULE (FP) PO SCH (10:14)
[2023-07-08] MEDS: LIDOCAINE 4% PATCH TP SCH (10:14)
[2023-07-08] MEDS: levETIRAcetam 500 MG/5 ML ORAL SOLUTION (UNIT-DOSE CUPS) GT SCH ×2 (10:14→21:41)
[2023-07-08] MEDS: MIDODRINE HCL 5 MG TABLET GT SCH (10:14)
[2023-07-08] MEDS: NYSTATIN 100,000 UNIT/GM TOPICAL CREAM 15 GM TUBE TP SCH ×2 (10:15→21:42)
[2023-07-08] MEDS: FAMOTIDINE 20 MG/2.5 ML ORAL LIQUID PEG SCH (10:15)
[2023-07-08] MEDS: VITAMIN B COMP W-C 1 EA TABLET (NEPHRO-VITE) PO SCH (10:15)
[2023-07-08] MEDS: BACITRACIN ZINC 15 GM TUBE TOPICAL OINTMENT TP SCH (10:15)
[2023-07-08] MEDS: LACTOBACILLUS ACIDOPHILUS 1 TABLET GT SCH (10:15)
[2023-07-08] MEDS: ASPIRIN 81 MG CHEWABLE TABLETS GT SCH (10:15)
[2023-07-08 11:25] LABS: BASO % 0.8 % (0-2.0); EOS % 3.4 % (0-4.5); HEMATOCRIT 24.5 % (32.4-45.2); HEMOGLOBIN 7.7 GM/dL (10.7-15.3); LYMPH % 12.3 % (8-40); MCH 29.4 pg (25.7-33.7); MCHC 31.4 g/dl (32.0-36.0); MEAN CELL VOLUME 93.5 fl (80-96); MEAN PLT VOLUME 8.4 fl (7.5-11.1); MONO % 12.1 % (3.8-10.2); NEUT % 71.4 % (42.8-82.8); PLATELET COUNT 396 10^3/uL (134-434); RBC 2.62 M/mm3 (3.60-5.2); RDW 17.7 % (11.6-15.6); WHITE BLOOD COUNT 8.5 K/mm3 (4.0-10.0)
[2023-07-08 11:57] LABS: ALBUMIN 1.7 g/dl (3.4-5.0); CALCIUM 9.5 mg/dL (8.5-10.1)
[2023-07-08 11:58] LABS: BLOOD UREA NITROGEN 69.5 mg/dL (7-18)
[2023-07-08 12:01] LABS: CREATININE 2.7 mg/dL (0.55-1.3)
[2023-07-08 12:02] LABS: BILIRUBIN,TOTAL 0.3 mg/dL (0.2-1); TOT PROT 7.9 g/dl (6.4-8.2)
[2023-07-08] MEDS: DEXTROSE 5% IVPB SCH (16:53)
[2023-07-08] MEDS: AMPHOTERICIN B LIPOSOMAL IVPB SCH (16:53)
[2023-07-08] MEDS: WATER IVPB SCH (16:53)
[2023-07-08] MEDS: ATORVASTATIN CA 40 MG TABLET (FP) GT SCH (21:41)
[2023-07-09] MEDS: LIDOCAINE PATCH REMOVAL MC SCH ×2 (05:27→23:35)
[2023-07-09] MEDS ORDERED: SODIUM CHLORIDE 250 ML IV PRN (07:40)
[2023-07-09] MEDS ORDERED: EPOETIN ALFA-EPBX 10,000 UNIT/ML VIAL IVPUSH ONE (08:00)
[2023-07-09] MEDS: AMINO ACIDS/PROTEIN HYDROLYS 30 ML LIQUID.PKT PO SCH ×2 (08:55→16:33)
[2023-07-09] MEDS: LIDOCAINE 4% PATCH TP SCH (15:06)
[2023-07-09] MEDS: levETIRAcetam 500 MG/5 ML ORAL SOLUTION (UNIT-DOSE CUPS) GT SCH ×2 (15:06→23:34)
[2023-07-09] MEDS: POTASSIUM CHLORIDE ORAL LIQUID 20 MEQ/15 ML PO SCH ×2 (15:06→23:34)
[2023-07-09] MEDS: ASPIRIN 81 MG CHEWABLE TABLETS GT SCH (15:07)
[2023-07-09] MEDS: VITAMIN B COMP W-C 1 EA TABLET (NEPHRO-VITE) PO SCH (15:07)
[2023-07-09] MEDS: BACITRACIN ZINC 15 GM TUBE TOPICAL OINTMENT TP SCH (15:07)
[2023-07-09] MEDS: ZINC SULFATE 220 MG CAPSULE (FP) PO SCH (15:07)
[2023-07-09] MEDS: LACTOBACILLUS ACIDOPHILUS 1 TABLET GT SCH (15:07)
[2023-07-09] MEDS: NYSTATIN 100,000 UNIT/GM TOPICAL CREAM 15 GM TUBE TP SCH (15:08)
[2023-07-09] MEDS: FAMOTIDINE 20 MG/2.5 ML ORAL LIQUID PEG SCH (15:08)
[2023-07-09] MEDS: DEXTROSE 5% IVPB SCH (16:33)
[2023-07-09] MEDS: WATER IVPB SCH (16:33)
[2023-07-09] MEDS: AMPHOTERICIN B LIPOSOMAL IVPB SCH (16:33)
[2023-07-09] MEDS: ATORVASTATIN CA 40 MG TABLET (FP) GT SCH (23:34)
[2023-07-10] MEDS: NYSTATIN 100,000 UNIT/GM TOPICAL CREAM 15 GM TUBE TP SCH ×2 (01:18→11:23)
[2023-07-10] MEDS: AMINO ACIDS/PROTEIN HYDROLYS 30 ML LIQUID.PKT PO SCH (10:22)
[2023-07-10] MEDS: levETIRAcetam 500 MG/5 ML ORAL SOLUTION (UNIT-DOSE CUPS) GT SCH (10:22)
[2023-07-10] MEDS: POTASSIUM CHLORIDE ORAL LIQUID 20 MEQ/15 ML PO SCH (10:22)
[2023-07-10] MEDS: ZINC SULFATE 220 MG CAPSULE (FP) PO SCH (10:23)
[2023-07-10] MEDS: FAMOTIDINE 20 MG/2.5 ML ORAL LIQUID PEG SCH (10:23)
[2023-07-10] MEDS: LACTOBACILLUS ACIDOPHILUS 1 TABLET GT SCH (10:23)
[2023-07-10] MEDS: ASPIRIN 81 MG CHEWABLE TABLETS GT SCH (10:23)
[2023-07-10] MEDS: MIDODRINE HCL 5 MG TABLET GT SCH (10:23)
[2023-07-10] MEDS: VITAMIN B COMP W-C 1 EA TABLET (NEPHRO-VITE) PO SCH (10:23)
[2023-07-10] MEDS: BACITRACIN ZINC 15 GM TUBE TOPICAL OINTMENT TP SCH (11:23)
[2023-07-10] MEDS: LIDOCAINE 4% PATCH TP SCH (11:23)
[2023-07-10 14:10] VITALS: BP 136/31; TEMP 98.5
[2023-07-10] MEDS: WATER IVPB SCH (15:58)
[2023-07-10] MEDS: AMPHOTERICIN B LIPOSOMAL IVPB SCH (15:58)
[2023-07-10] MEDS: DEXTROSE 5% IVPB SCH (15:58)
[2023-07-10 16:03] VITALS: PULSE 75; RESP 21
== END 2023-07-10 16:33 | DRG 867 ==
LOC: JER 01:07 → INTOOBSV 04:23 → JERBED 04:23 → J5S 16:46 → OBSVTOIN 07-01 11:51
PROVIDERS: ADMIT Family Medicine; ATTEND Family Medicine
PROC: 5A1955Z Respiratory Ventilation, Greater than 96 Consecutive Hours (ICD-10-PCS; principal; 2023-07-01)
PROC: 5A1D70Z Performance of Urinary Filtration, Intermittent, Less than 6 Hours Per Day (ICD-10-PCS; 2023-07-02)
PROC: 5A1D70Z Performance of Urinary Filtration, Intermittent, Less than 6 Hours Per Day (ICD-10-PCS; 2023-07-04)
PROC: 5A1D70Z Performance of Urinary Filtration, Intermittent, Less than 6 Hours Per Day (ICD-10-PCS; 2023-07-06)
PROC: 5A1D70Z Performance of Urinary Filtration, Intermittent, Less than 6 Hours Per Day (ICD-10-PCS; 2023-07-09)
DX: B37.89 Other sites of candidiasis (principal); L89.153 Pressure ulcer of sacral region, stage 3; N18.6 End stage renal disease; R53.2 Functional quadriplegia; Z99.11 Dependence on respirator [ventilator] status; J96.11 Chronic respiratory failure with hypoxia; J96.12 Chronic respiratory failure with hypercapnia; J98.11 Atelectasis; I12.0 Hypertensive chronic kidney disease with stage 5 chronic kidney disease or end stage renal disease; D64.9 Anemia, unspecified; E03.9 Hypothyroidism, unspecified; E78.00 Pure hypercholesterolemia, unspecified; F03.90 Unspecified dementia, unspecified severity, without behavioral disturbance, psychotic disturbance, mood disturbance, and anxiety; I25.10 Atherosclerotic heart disease of native coronary artery without angina pectoris; I48.0 Paroxysmal atrial fibrillation; G40.909 Epilepsy, unspecified, not intractable, without status epilepticus; Z93.0 Tracheostomy status; Z99.2 Dependence on renal dialysis; Y83.8 Other surgical procedures as the cause of abnormal reaction of the patient, or of later complication, without mention of misadventure at the time of the procedure
CPT/HCPCS: 0241U-QW; 36415; 36430; 71045-TC-FY; 71270-TC; 74178-TC; 80053; 82728; 83540; 83550; 85025; 86803; 86850; 86900; 86901; 86922; 87040; 87340; 87522; 87635; 93005; 93010; 94002; 94640; 99285-25; G0378; J0131; J0289; J0637; P9038; P9058; Q5106; Q9967